=== PATIENT | male | born 1935 | race Caucasian/White ===

== ENCOUNTER 2020-10-03 07:27 | Outpatient (REF) | payer MEDICARE, SELFPAY ==
[2020-10-03 11:31] LABS: Estimated Average Glucose 148 mg/dL; Hemoglobin A1c % 6.8 %
[2020-10-03 11:39] LABS: Alanine Aminotransferase 13 U/L (0-40); Alkaline Phosphatase 54 U/L (39-117); Anion Gap 13 (12-20); Aspartate Amino Transferase 15 U/L (5-37); Bilirubin Total 0.6 mg/dL (0.0-1.0); Blood Urea Nitrogen 15 mg/dL (9-16); Carbon Dioxide 31 mmol/L (22-29); Chloride 101 mmol/L (96-108); Cholesterol 170 mg/dL; Estimated Glomerular Filt Rate > 60; Glucose Fasting 136 mg/dL (60-99); HDL Cholesterol 84 mg/dL; LDL Cholesterol Calculated 75 mg/dl; Potassium 4.5 mmol/L (3.3-5.1); Sodium 140 mmol/L (135-145); Total Protein 6.6 g/dL (6.5-8.0); Triglycerides 59 mg/dL
[2020-10-03 12:07] LABS: Creatinine Urine 110.21 mg/dL; Microalbum/Creatinine Ratio Ur 6.3 ug/mg cr
== END 2020-10-03 07:28 | disposition home or self-care (01) ==
LOC: HO.HMGCLDS 07:27
PROVIDERS: PCP Internal Medicine; Visit Provider Internal Medicine
DX: E11.9 Type 2 diabetes mellitus without complications (principal); C61 Malignant neoplasm of prostate
CPT/HCPCS: 36415; 80053; 80061; 82043; 83036

== ENCOUNTER 2020-12-28 10:17 | Outpatient (REF) | payer MEDICARE, SELFPAY ==
[2020-12-28 11:50] LABS: Estimated Average Glucose 148 mg/dL; Hemoglobin A1c % 6.8 %
[2020-12-28 12:06] LABS: Hematocrit 40.4 % (42-52); Hemoglobin 13.3 g/dl (14.0-18.0); Mean Corpuscular HGB Conc 32.9 g/dl (31.0-36.0); Mean Corpuscular Hemoglobin 29.3 pg (27.0-33.0); Mean Platelet Volume 10.3 fL (9.4-12.4); Platelet Count 243 X10*3/uL (160-400); Red Blood Count 4.54 X10*6/uL (4.60-5.80); Red Cell Distribution Width 13.7 % (11.0-16.0); White Blood Count 5.1 X10*3/uL (4.8-10.8)
[2020-12-28 12:11] LABS: Alanine Aminotransferase 11 U/L (0-40); Albumin Level 4.2 g/dL (3.5-5.0); Alkaline Phosphatase 66 U/L (39-117); Anion Gap 13 (12-20); Aspartate Amino Transferase 17 U/L (5-37); Bilirubin Total 0.6 mg/dL (0.0-1.0); Blood Urea Nitrogen 14 mg/dL (9-16); Calcium 10.2 mg/dL (8.4-10.2); Carbon Dioxide 30 mmol/L (22-29); Chloride 101 mmol/L (96-108); Cholesterol 182 mg/dL; Estimated Glomerular Filt Rate > 60; Glucose Fasting 156 mg/dL (60-99); HDL Cholesterol 87 mg/dL; Iron 90 mcg/dL (45-160); LDL Cholesterol Calculated 82 mg/dl; Percent Iron Saturation 28 % (15-50); Potassium 4.4 mmol/L (3.3-5.1); Sodium 140 mmol/L (135-145); Total Iron Binding Capacity 316 mcg/dL (228-428); Triglycerides 68 mg/dL; Unsaturated Iron Binding 226 ug/dL
[2020-12-28 12:22] LABS: Vitamin D 25-OH Total 55.7 ng/mL (>30)
[2020-12-28 12:43] LABS: Vitamin B12 1960 pg/mL (200-900)
== END 2020-12-28 10:18 | disposition home or self-care (01) ==
LOC: HO.HMGCLDS 10:17
PROVIDERS: PCP Internal Medicine; Visit Provider Internal Medicine
DX: C61 Malignant neoplasm of prostate (principal); E11.9 Type 2 diabetes mellitus without complications
CPT/HCPCS: 36415; 80053; 80061; 82306; 82607; 83036; 83540; 85027

== ENCOUNTER 2021-01-19 12:48 | Emergency (ER) | payer MEDICARE, SELFPAY ==
[2021-01-19 15:08] VITALS: BP 133/58; PULSE 79; RESP 16; TEMP 36.6; O2SAT 98; BMI 20.5
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
[2021-01-19] MEDS: HYDROcodone Bit/Acetam 5/325 TABLET 1 TAB PO (16:59)
[2021-01-19] MEDS: cephALEXin 500 MG CAPSULE PO (16:59)
[2021-01-19 17:33] VITALS: BP 121/62; PULSE 81; RESP 16; TEMP 36.7; O2SAT 98
== END 2021-01-19 17:34 | disposition home or self-care (01) ==
PROVIDERS: Emergency Provider Emergency Medicine; PCP Internal Medicine
DX: T24.212A Burn of second degree of left thigh, initial encounter (principal); T24.211A Burn of second degree of right thigh, initial encounter; T31.0 Burns involving less than 10% of body surface; X12.XXXA Contact with other hot fluids, initial encounter; Y93.9 Activity, unspecified; Y92.9 Unspecified place or not applicable; Y99.9 Unspecified external cause status; E11.9 Type 2 diabetes mellitus without complications
CPT/HCPCS: 16020; 99283

== ENCOUNTER 2021-01-30 07:57 | Outpatient (RCR) | payer MEDICARE, SELFPAY | END 2021-03-02 12:31 | disposition home or self-care (01) | LOC: HO.WCC 07:57 | PROVIDERS: PCP Internal Medicine; Visit Provider Physician Assistant | DX: T24.212D Burn of second degree of left thigh, subsequent encounter (principal); T24.211D Burn of second degree of right thigh, subsequent encounter; T21.25XD Burn of second degree of buttock, subsequent encounter; E11.65 Type 2 diabetes mellitus with hyperglycemia; R21 Rash and other nonspecific skin eruption; T31.0 Burns involving less than 10% of body surface; Z79.84 Long term (current) use of oral hypoglycemic drugs; Z85.46 Personal history of malignant neoplasm of prostate | CPT/HCPCS: 99212; 99213; 99214 ==

== ENCOUNTER 2021-07-02 08:37 | Outpatient (REF) | payer MEDICARE, SELFPAY ==
[2021-07-02 11:34] LABS: Estimated Average Glucose 143 mg/dL; Hemoglobin A1c % 6.6 %
[2021-07-02 11:51] LABS: Alanine Aminotransferase 12 U/L (0-40); Albumin Level 4.1 g/dL (3.5-5.0); Alkaline Phosphatase 58 U/L (39-117); Anion Gap 11 (12-20); Aspartate Amino Transferase 15 U/L (5-37); Bilirubin Total 0.5 mg/dL (0.0-1.0); Blood Urea Nitrogen 12 mg/dL (9-16); Calcium 9.8 mg/dL (8.4-10.2); Carbon Dioxide 31 mmol/L (22-29); Chloride 101 mmol/L (96-108); Estimated Glomerular Filt Rate > 60; Glucose Fasting 147 mg/dL (60-99); Potassium 4.1 mmol/L (3.3-5.1); Sodium 139 mmol/L (135-145); Total Protein 6.7 g/dL (6.5-8.0)
== END 2021-07-02 08:38 | disposition home or self-care (01) ==
LOC: HO.HMGCLDS 08:37
PROVIDERS: PCP Internal Medicine; Visit Provider Internal Medicine
DX: E11.9 Type 2 diabetes mellitus without complications (principal); C61 Malignant neoplasm of prostate
CPT/HCPCS: 36415; 80053; 83036

== ENCOUNTER 2022-01-04 08:22 | Outpatient (REF) | payer MEDICARE, SELFPAY ==
[2022-01-04 12:05] LABS: Hematocrit 37.2 % (42.0-52.0); Hemoglobin 12.1 g/dl (14.0-18.0); Mean Corpuscular HGB Conc 32.5 g/dl (31.0-36.0); Mean Corpuscular Hemoglobin 29.4 pg (27.0-33.0); Mean Corpuscular Volume 90.3 fL (80.0-98.0); Mean Platelet Volume 10.1 fL (9.4-12.4); Platelet Count 249 X10*3/uL (160-400); Red Blood Count 4.12 X10*6/uL (4.60-5.80); Red Cell Distribution Width 13.7 % (11.0-16.0)
[2022-01-04 12:44] LABS: Alanine Aminotransferase 12 U/L (0-40); Alkaline Phosphatase 65 U/L (39-117); Anion Gap 12 (12-20); Aspartate Amino Transferase 14 U/L (5-37); Bilirubin Total 0.3 mg/dL (0.0-1.0); Blood Urea Nitrogen 13 mg/dL (9-16); Calcium 9.1 mg/dL (8.4-10.2); Carbon Dioxide 29 mmol/L (22-29); Chloride 101 mmol/L (96-108); Estimated Glomerular Filt Rate > 60; Glucose Fasting 145 mg/dL (60-99); Potassium 4.3 mmol/L (3.3-5.1); Sodium 138 mmol/L (135-145); Total Protein 6.6 g/dL (6.5-8.0)
[2022-01-04 12:52] LABS: Estimated Average Glucose 148 mg/dL; Hemoglobin A1c % 6.8 %
[2022-01-04 12:57] LABS: Creatinine Urine 61.41 mg/dL; Microalbum/Creatinine Ratio Ur 30.9 ug/mg cr
== END 2022-01-04 08:23 | disposition home or self-care (01) ==
LOC: HO.HMGCLDS 08:22
PROVIDERS: PCP Internal Medicine; Visit Provider Internal Medicine
DX: E11.9 Type 2 diabetes mellitus without complications (principal)
CPT/HCPCS: 36415; 80053; 82043; 83036; 85027

== ENCOUNTER 2022-07-03 08:04 | Outpatient (REF) | payer MEDICARE, SELFPAY ==
[2022-07-03 11:11] LABS: MANUAL DIFF FLAG NO
[2022-07-03 11:30] LABS: Basophils Percent Auto 0.6 % (0-2); Eosinophils Absolute Auto 0.4 X10*3/uL (0.0-0.4); Eosinophils Percent Auto 7.3 % (0-4); Hematocrit 37.1 % (42.0-52.0); Hemoglobin 12.2 g/dl (14.0-18.0); Imm Gran Abs Auto 0.01 X10*3/uL (0.00-0.03); Imm Gran Pct Auto 0.2 % (0.0-0.4); Lymphocytes Percent Auto 19.2 % (20-40); Mean Corpuscular HGB Conc 32.9 g/dl (31.0-36.0); Mean Corpuscular Hemoglobin 28.6 pg (27.0-33.0); Mean Corpuscular Volume 86.9 fL (80.0-98.0); Monocytes Absolute Auto 0.8 X10*3/uL (0.1-1.2); Monocytes Percent Auto 16.5 % (2-11); Neutrophils Absolute Auto 2.8 x10*3/uL (2.0-8.3); Neutrophils Percent Auto 56.2 % (45-73); Platelet Count 281 X10*3/uL (160-400); Red Blood Count 4.27 X10*6/uL (4.60-5.80); Red Cell Distribution Width 14.2 % (11.0-16.0)
[2022-07-03 11:35] LABS: Estimated Average Glucose 148 mg/dL; Hemoglobin A1c % 6.8 %
[2022-07-03 11:42] LABS: Alanine Aminotransferase 8 U/L (0-40); Alkaline Phosphatase 69 U/L (39-117); Anion Gap 15 (12-20); Aspartate Amino Transferase 13 U/L (5-37); Bilirubin Total 0.4 mg/dL (0.0-1.0); Blood Urea Nitrogen 14 mg/dL (9-16); Calcium 9.4 mg/dL (8.4-10.2); Carbon Dioxide 26 mmol/L (22-29); Chloride 97 mmol/L (96-108); Estimated Glomerular Filt Rate > 60; Glucose Fasting 142 mg/dL (60-99); Potassium 4.4 mmol/L (3.3-5.1); Sodium 134 mmol/L (135-145); Total Protein 6.7 g/dL (6.5-8.0)
[2022-07-03 12:21] LABS: Folate 10.4 ng/mL (> or = 4.0); Vitamin B12 < 148 pg/mL (200-900)
== END 2022-07-03 08:05 | disposition home or self-care (01) ==
LOC: HO.HMGCLDS 08:04
PROVIDERS: PCP Internal Medicine; Visit Provider Internal Medicine
DX: Z00.00 Encounter for general adult medical examination without abnormal findings (principal); C61 Malignant neoplasm of prostate; E11.9 Type 2 diabetes mellitus without complications
CPT/HCPCS: 36415; 80053; 82607; 82746; 83036; 85025

== ENCOUNTER 2023-01-02 08:34 | Outpatient (REF) | payer MEDICARE, SELFPAY ==
[2023-01-02 11:10] LABS: MANUAL DIFF FLAG NO
[2023-01-02 11:25] LABS: Basophils Percent Auto 0.5 % (0-2); Eosinophils Absolute Auto 0.3 X10*3/uL (0.0-0.4); Eosinophils Percent Auto 4.3 % (0-4); Hematocrit 37.8 % (42.0-52.0); Hemoglobin 12.5 g/dl (14.0-18.0); Imm Gran Abs Auto 0.03 X10*3/uL (0.00-0.03); Imm Gran Pct Auto 0.5 % (0.0-0.4); Lymphocytes Absolute Auto 1.3 X10*3/uL (1.2-4.9); Lymphocytes Percent Auto 21.4 % (20-40); Mean Corpuscular HGB Conc 33.1 g/dl (31.0-36.0); Mean Corpuscular Hemoglobin 29.6 pg (27.0-33.0); Mean Corpuscular Volume 89.6 fL (80.0-98.0); Mean Platelet Volume 10.2 fL (9.4-12.4); Monocytes Absolute Auto 0.8 X10*3/uL (0.1-1.2); Neutrophils Absolute Auto 3.8 x10*3/uL (2.0-8.3); Neutrophils Percent Auto 61.3 % (45-73); Platelet Count 240 X10*3/uL (160-400); Red Blood Count 4.22 X10*6/uL (4.60-5.80); Red Cell Distribution Width 14.6 % (11.0-16.0); White Blood Count 6.3 X10*3/uL (4.8-10.8)
== END 2023-01-02 08:35 | disposition home or self-care (01) ==
LOC: HO.HMGCLDS 08:34
PROVIDERS: PCP Internal Medicine; Visit Provider Internal Medicine
DX: C61 Malignant neoplasm of prostate (principal); E11.9 Type 2 diabetes mellitus without complications; J31.0 Chronic rhinitis
CPT/HCPCS: 36415; 80053; 83036; 84443; 85025

== ENCOUNTER 2023-01-06 08:53 | Outpatient (REF) | payer MEDICARE, SELFPAY | END 2023-01-06 08:54 | disposition home or self-care (01) | LOC: HO.HMGCLDS 08:53 | PROVIDERS: PCP Internal Medicine; Visit Provider Internal Medicine | DX: E55.9 Vitamin D deficiency, unspecified (principal); E53.8 Deficiency of other specified B group vitamins | CPT/HCPCS: 36415; 82306; 82607; 82746 ==

== ENCOUNTER 2023-01-15 08:57 | Outpatient (AMB) | payer MEDICARE, SELFPAY ==
[2023-01-15 08:58] VITALS: BP 132/68; PULSE 50; TEMP 36.5; O2SAT 100
--- NOTE | 2023-01-15 08:58 | AM.OFFWIN_ITS ---
Intake Vital Signs 01/15/23 08:58 Height 5 ft 8 in BP 132/68 Blood Pressure Location Rt brachial Position Sitting Pulse 50 Pulse Source Pulse Oximeter Temp 97.7 F Temp Source Oral Pulse Oximetry (%) 100 Oxygen Delivery Method Room Air Intake Visit Reasons: EP, Left thumb laceration (lobby) Intake Note: pt cut his left thumb on his saw yesterday afternoon and pt say it is still bleeding Patient Tobacco Use Status: Never used Tobacco Allergies No Known Allergies [No Known Allergies*] Allergy (Verified 01/15/23 09:25) HPI HPI Comments History of Present Illness Details Here today with reports of a laceration to left thumb that occurred yesterday afternoon. Reports working with his saw and injuring the top of his left thumb which resulted in immediate loss of flesh & bleeding. Him and his rinsed the area and applied a pressure dressing. He comes in today for further evaluation. He does not think he is up-to-date on his tetanus shot. He is not having much pain. He has good sensation in the thumb. He is not on any blood thinners. He can come in any sooner is again think there is any skin left suture. He denies fever chills. [facility] Medical History Annual physical exam DM type 2 (diabetes mellitus, type 2) Paget's disease Prostate CA Family History Father No problems noted. Mother No problems noted. Social History Housing: House Alcohol intake: current Alcohol intake frequency: holidays/special occasions only Patient Tobacco Use Status: Never used Tobacco e-Cigarette/Vaping Use: Never Used Second Hand Smoke Exposure: No service: Yes Current occupational status: retired Current occupational exposures/hazards: No Cognitive needs: No Hearing needs: No Vision needs: Yes Review of Systems Const All systems reviewed & are unremarkable except as noted in HPI and below Physical Exam Vital Signs: Last Vital Signs Temp 97.7 F 01/15/23 08:58 Pulse 50 01/15/23 08:58 BP 132/68 01/15/23 08:58 Pulse Ox 100 01/15/23 08:58 Oxygen Delivery Method Room Air 01/15/23 08:58 Const Other: Awake alert oriented in no acute distress Speaking in full sentences Avulsion to pad of left thumb, no bone visible or palpable appears to be limited to the tissue. The area was rinsed thoroughly with sterile saline. Xeroform gauze and dry clean dressing applied. Patient tolerated well. Positive [facility] Assessment & Plan Assessment & Plan (1) Avulsion of skin of thumb: Code(s): S61.009A - Unspecified open wound of unspecified thumb without damage to nail, i nitial encounter Orders: Orders TDaP Immunization Today S61.009A - Unspecified open wound of unspecified thumb without damage to nail, initial encounter Referrals Hand Surgery Referral S61.009A - Unspecified open wound of unspecified thumb without damage to nail, initial encounter Medications: New cephalexin 500 mg PO TID 7 days 21 caps 0RF Patient Instructions: Tdap today. Take antibiotics as prescribed. Follow-up with Hand surgery for further recommendations. Sent home with additional dressing supplies to change daily. Patient should monitor for signs of infection that would include fever chills drainage or redness to the area. Keep the dressing dry and clean. Coding Level of Care Code Est Pt Level 4 (18608) Diagnoses Avulsion of skin of thumb S61.009A
== END 2023-01-15 10:09 | disposition home or self-care (01) ==
PROVIDERS: PCP Internal Medicine; Visit Provider Nurse Practitioner Family
DX: S61.009A Unspecified open wound of unspecified thumb without damage to nail, initial encounter (principal); Z23 Encounter for immunization
CPT/HCPCS: 90471; 90715; 99214

== ENCOUNTER 2023-01-21 08:31 | Outpatient (AMB) | payer MEDICARE, SELFPAY ==
[2023-01-21 08:36] VITALS: BMI 19.5
--- NOTE | 2023-01-21 08:36 | A.OFFVIS_ITS ---
Intake Vital Signs 01/21/23 08:36 Height 5 ft 8 in Weight 128 lb BMI 19.5 Intake Visit Reasons: open wound of left thumb without damage to nail Intake Note: Raymundo is a 87 year old left hand dominant male who presents today as a new patient for a evaluation for his laceration of his left thumb, DOI 01/14/23. He states he cut his finger with a table saw. Patient reports some discomfort and no numbness and tingling. Allergies No Known Allergies [No Known Allergies*] Allergy (Verified 01/21/23 08:37) HPI open wound of left thumb without damage to nail HPI Details 87-year-old left hand dominant male who presents in the office today, as a new patient, for an evaluation of left thumb pain. The patient [facility]2023 status post cutting his thumb with a saw on 01/14/2023. He was prescribed cephalexin 500 mg PO TID. He reports some discomfort. He denies numbness or tingling. [facility] Medical History Annual physical exam DM type 2 (diabetes mellitus, type 2) Paget's disease Prostate CA Family History Father No problems noted. Mother No problems noted. Social History Housing: House Alcohol intake: current Alcohol intake frequency: holidays/special occasions only Patient Tobacco Use Status: Never used Tobacco e-Cigarette/Vaping Use: Never Used Second Hand Smoke Exposure: No service: Yes Current occupational status: retired Current occupational exposures/hazards: No Cognitive needs: No Hearing needs: No Vision needs: Yes Review of Systems Const All systems reviewed & are unremarkable except as noted in HPI and below Physical Exam Vital Signs: BMI result Body Mass Index 19.5 Const General: cooperative, healthy appearing, comfortable, no acute distress, well developed and alert Orientation/consciousness: patient oriented x3 HEENT Head: Yes normal to inspection, Yes normocephalic and Yes atraumatic Eyes General: appearance normal, both eyes and all related structures Resp Effort & Inspection: normal respiratory effort and able to speak in complete sentences Cardio Rate: regular rate Peripheral pulses: Peripheral pulses 2+ throughout GI Palpation (GI): Soft to palpation Skin Lesions: no lesions Rashes: no rashes Neuro General: patient oriented x3 Extrem Other: Left thumb: Avulsion of skin at the distal aspect of the finger pad of the thumb. Reports sensation along the ulnar and radial digital nerve. Able to flex and extend at the IP joint and CMC. No signs of infection. Granulation tissue is beginning to fill in the avulsed area. Able to perform full finger flexion, extension, abduction, adduction, finger cross, okay sign, and thumbs up without deficit. Able to make a closed fist. Assessment & Plan Assessment & Plan (1) Laceration of left thumb: Code(s): S61.012A - Laceration without foreign body of left thumb without damage to nail, initial encounter Plan Mr. Ferreira is an 87-year-old left hand dominant male who presents in the office today, as a new patient, for an evaluation of left thumb pain. The patient [facility] 01[facility]2023 status post cutting his thumb with a saw on 01/14/2023. He was prescribed cephalexin 500 mg PO TID. He reports some discomfort. He denies numbness or tingling. The patient will continue to take the antibiotic until completed. He was educated on signs of infection, which are as follows but not limited to erythema, edema, drainage, or warmth. If he is to experience any of these symptoms he is to contact the office immediately or present to the ED. His finger was redressed with xeroform and tape. He was given supplies for daily dressing changes. Follow up will be in 1 week for a wound check, or sooner if needed. X-rays of the left hand which were obtained while in the office today and were reviewed by me, Alyssa Yeung PA-C, revealed no evidence of acute fracture or dislocation. Orders: Orders XR hand LT min 3V Today M79.643 - Pain in unspecified hand Patient Instructions: Scribed for Alyssa Yeung PA-C by Latonia Santiago medical dosimetrist, on 01/21/2023 at 8:42 am, EST. Your attestation Coding Level of Care Code New Pt Level 4 (98761) Diagnoses Laceration of left thumb S61.012A
== END 2023-01-21 09:29 | disposition home or self-care (01) ==
PROVIDERS: PCP Internal Medicine; Visit Provider Physician Assistant
DX: S61.012A Laceration without foreign body of left thumb without damage to nail, initial encounter (principal)
CPT/HCPCS: 99203

== ENCOUNTER 2023-01-21 10:49 | Outpatient (REF) | payer MEDICARE, SELFPAY ==
--- NOTE | ~2023-01-21 | XR_ITS ---
EXAMINATION: XR HAND, LEFT CLINICAL INFORMATION: Left hand pain. COMPARISON: None available. TECHNIQUE: PA, lateral, and oblique views of the left hand. FINDINGS: There is loss of PIP, DIP and MCP joint spaces with no periarticular spurring seen. Mild loss of 1st carpometacarpal joint space is seen as well. No acute fracture, dislocation. No juxta-articular osteoporosis seen. The soft tissues are normal. XR/XR hand LT min 3V IMPRESSION: 1. Mild degenerative osteoarthritic changes left hand. No visible acute fracture or dislocation seen. 2. There is no juxta-articular osteoporosis.
== END 2023-01-21 10:50 | disposition home or self-care (01) ==
LOC: HO.HOSX 10:49
PROVIDERS: Visit Provider Physician Assistant
DX: S61.012A Laceration without foreign body of left thumb without damage to nail, initial encounter (principal)
CPT/HCPCS: 73130

== ENCOUNTER → 2023-01-28 12:35 | Outpatient (BNVA) | payer MEDICARE, SELFPAY | PROVIDERS: PCP Internal Medicine; Visit Provider Physician Assistant ==

== ENCOUNTER 2023-02-11 14:47 | Outpatient (AMB) | payer MEDICARE, SELFPAY ==
--- NOTE | 2023-02-11 14:50 | MHC.OFFVIS ---
Intake Vital Signs 02/11/23 14:54 Height 5 ft 8 in Weight 128 lb BMI 19.5 Intake Visit Reasons: OV-LT thumb wound without damage to nail Intake Note: Raymundo an 87 year old left hand dominant male who presents today for a wound check of his laceration to his left thumb, DOI 01/14/23. Patient reports no pain or discomfort but having numbness on the tip of the thumb. Allergies No Known Allergies [No Known Allergies*] Allergy (Verified 02/11/23 14:53) HPI OV-LT thumb wound without damage to nail HPI Details 87-year-old left hand dominant male who presents in the office today for a follow up of left thumb laceration without damage to the nail, which occurred on 01/14/2023 status post cutting his thumb with a saw. He has no pain or discomfort while in the office today. He confirms numbness on the tip of the thumb. [facility] Medical History Annual physical exam DM type 2 (diabetes mellitus, type 2) Paget's disease Prostate CA Family History Father No problems noted. Mother No problems noted. Social History Housing: House Alcohol intake: current Alcohol intake frequency: holidays/special occasions only Patient Tobacco Use Status: Never used Tobacco e-Cigarette/Vaping Use: Never Used Second Hand Smoke Exposure: No service: Yes Current occupational status: retired Current occupational exposures/hazards: No Cognitive needs: No Hearing needs: No Vision needs: Yes Review of Systems Const All systems reviewed & are unremarkable except as noted in HPI and below Physical Exam Vital Signs: BMI result Body Mass Index 19.5 Const General: cooperative, healthy appearing and no acute distress Resp Effort & Inspection: normal respiratory effort and able to speak in complete sentences Cardio Rate: regular rate Peripheral pulses: Peripheral pulses 2+ throughout GI Palpation (GI): Soft to palpation Skin Lesions: no lesions Rashes: no rashes Extrem Other: Left thumb: Avulsion of skin at the distal aspect of the finger pad of the thumb has filled in nicely with healthy pink tissue. Reports sensation along the ulnar and radial digital nerve. Able to flex and extend at the IP joint and CMC. No signs of infection. Able to perform full finger flexion, extension, abduction, adduction, finger cross, okay sign, and thumbs up without deficit. Able to make a closed fist. Assessment & Plan Assessment & Plan (1) Laceration of left thumb: Code(s): S61.012A - Laceration without foreign body of left thumb without damage to nail, initial encounter Plan Mr. Ferreira is a 87-year-old left hand dominant male who presents in the office today for a follow up of left thumb laceration without damage to the nail, which occurred on 01/14/2023 status post cutting his thumb with a saw. He has no pain or discomfort while in the office today. He confirms numbness on the tip of the thumb. Avulsed area of skin has filled in nicely with healthy tissue. No signs of infection. He was educated on signs of infection, which are as follows but not limited to erythema, edema, drainage, or warmth. If he is to experience any of these symptoms he is to contact the office immediately or present to the ED. He may resume normal activities as tolerated. Follow up will be PRN, or sooner if needed. Patient Instructions: Scribed for Alyssa Yeung PA-C by Latonia Santiago medical instrument technician, on 02/11/2023 at 2:49 pm, EST. Coding Level of Care Code Est Pt Level 3 (55440) Diagnoses Laceration of left thumb S61.012A
[2023-02-11 14:54] VITALS: BMI 19.5
== END 2023-02-11 14:58 | disposition home or self-care (01) ==
PROVIDERS: PCP Internal Medicine; Visit Provider Physician Assistant
DX: S61.012D Laceration without foreign body of left thumb without damage to nail, subsequent encounter (principal)
CPT/HCPCS: 99213

== ENCOUNTER → 2023-02-11 14:47 | Outpatient (BNVA) | payer MEDICARE, SELFPAY | PROVIDERS: PCP Internal Medicine; Visit Provider Physician Assistant | DX: S61.012D Laceration without foreign body of left thumb without damage to nail, subsequent encounter (principal) | CPT/HCPCS: 99212 ==

== ENCOUNTER 2023-02-26 11:26 | Emergency (ER) | payer MEDICARE, SELFPAY ==
--- NOTE | ~2023-02-26 | US_ITS ---
EXAMINATION: US VENOUS ULTRASOUND WITH DOPPLER LOWER EXTREMITY, RIGHT CLINICAL INFORMATION: Right calf pain. COMPARISON: None available. TECHNIQUE: Ultrasound of the deep veins is performed from the hip to the calf with compression sonography and color and pulse Doppler assessment. Spectral analysis with color-flow imaging is performed. FINDINGS: There is normal venous compression and respiratory variation and augmented flow. The visualized common femoral vein, superficial femoral vein, profunda femoral vein, popliteal vein, and the trifurcation region shows no evidence of deep venous thrombosis. No right popliteal cyst. The subcutaneous soft tissues are unremarkable. US/US venous duplex LE RT IMPRESSION: No evidence for deep venous thrombosis in the visualized veins of the right lower extremity.
--- NOTE | ~2023-02-26 | CT_ITS ---
EXAMINATION: CT PELVIS WITHOUT CONTRAST CLINICAL INFORMATION: Prostate cancer, pain. Rule out mass. COMPARISON: CT scan of the abdomen and pelvis dated 06/02/2018. TECHNIQUE: Helical scanning was performed with submillimeter collimation through the pelvis. Sagittal and coronal multiplanar 2-D reconstructions were obtained. Lack of intravenous and oral contrast limits visceral evaluation. This CT examination was performed using dose optimization techniques as appropriate, variously including the following: *Automated exposure control *Adjustment of mA and/or kV according to patient size (this includes techniques or standardized protocols for targeted exams where dose is matched to indication/reason for exam; i.e. extremities or head) *Use of iterative reconstruction technique DLP: 249 mGy-cm FINDINGS: PELVIS: The visualized small bowel is unremarkable. No evidence for acute appendicitis. Mild diverticulosis in the sigmoid colon without surrounding abnormality. The rectum is unremarkable. Brachytherapy seeds in the prostate gland without surrounding abnormality. Urinary bladder small diverticuli posterolateral, right without associated abnormality. No lymphadenopathy. OSSEOUS STRUCTURES: L4-L5 moderate L5-S1 severe degenerative disc disease. Mild bilateral sacroiliac and hip degenerative joint changes. No acute/suspicious abnormality. SOFT TISSUES: Unremarkable. CT/CT pelvis wo IV con IMPRESSION: 1. No acute/suspicious abnormality to explain the patient's symptoms. 2. Several incidental findings detailed above similar to the previous study.
[2023-02-26 11:30] VITALS: BP 169/50; PULSE 64; RESP 19; TEMP 36.6; O2SAT 98; BMI 20.1
--- NOTE | 2023-02-26 11:31 | ED.GENADULT ---
HPI - General Adult General Chief complaint: Extremity Injury, Lower Stated complaint: R leg pain Time Seen by Provider: 02/26/23 13:27 Source: patient Mode of arrival: wheelchair Limitations: no limitations History of Present Illness HPI narrative: 87 yo male with history of prostate cancer on oral chemo, DM here with complaints of shooting right leg pain only when he walks since last evening. Patient reports d/t pain he is unable to walk. His baseline is walking independently. Pain is described as shooting pain. NO associated weakness, numbness, tingling, fevers, chills, bowel or bladder incontinence, numbness in the groin. No falls or injuries. Does have intermittent back pain but unsure if this is associated with his pain today Related Data Home Medications Medication Instructions Recorded Confirmed flu vacc 2020-(65yr ml IM 07/10/20 01/06/23 up)-MF59C(PF) 60 mcg(15 mcgx4)/0.5 mL IM syringe tamsulosin 0.4 mg capsule 0.4 mg PO DAILY 07/10/20 01/06/23 ascorbate calcium (vitamin C) 500 500 mg PO DAILY 09/28/20 01/06/23 mg tablet aspirin 81 mg tablet,delayed 81 mg PO DAILY 09/28/20 01/06/23 release cholecalciferol (vitamin D3) 50 50 mcg PO DAILY 09/28/20 01/06/23 mcg (2,000 unit) capsule cyanocobalamin (vitamin B-12) 5,000 mcg PO DAILY 09/28/20 01/06/23 5,000 mcg capsule ferrous sulfate 325 mg (65 mg 325 mg PO DAILY 09/28/20 01/06/23 iron) tablet (Feosol) goserelin 3.6 mg subcutaneous 3.6 mg subcut Q28D 09/28/20 01/06/23 implant (Zoladex) oxybutynin chloride 5 mg 5 mg PO DAILY 07/05/21 01/06/23 tablet,extended release 24 hr darolutamide 300 mg tablet (Nubeqa) 600 mg PO BID 03/29/22 01/06/23 loratadine 10 mg tablet 10 mg PO DAILY 01/06/23 01/06/23 Previous Rx's Medication Instructions Recorded blood sugar diagnostic (FreeStyle #100 ea 03/13/22 Lite Strips) sitagliptin phosphate 50 mg tablet 50 mg PO DAILY #90 tabs 08/12/22 metformin 500 mg tablet 1,000 mg PO BID #360 tabs 08/27/22 cephalexin 500 mg capsule 500 mg PO TID 7 days #21 caps 01/15/23 cyclobenzaprine 10 mg tablet 10 mg PO TID PRN muscle spasm #10 02/26/23 tabs naproxen 500 mg tablet 500 mg PO BID PRN pain #20 tabs 02/26/23 walker #1 ea 02/26/23 Allergies Allergy/AdvReac Type Severity Reaction Status Date / Time No Known Allergies Allergy Verified 02/26/23 11:30 [No Known Allergies*] Review of Systems Review of Systems: Yes all other systems are reviewed and are negative Constitutional: Constitutional: Reports no additional constitutional complaints, Denies body ache(s), Denies chills, Denies fever(s), Denies headache(s) and Denies weakness Eyes: Eyes: Reports no additional eye complaints and Denies change in vision ENT: Reports system reviewed and no additional complaints, except as documented, Denies dizziness, Denies headache(s), Denies nasal congestion, Denies nasal discharge and Denies neck pain Cardiovascular: Cardiovascular: Reports no additional cardiovascular complaints, Denies chest pain, Denies leg edema and Denies dyspnea Respiratory: Respiratory: Reports no additional respiratory complaints, Denies cough and Denies dyspnea Gastrointestinal: Gastrointestinal: Reports no additional gastrointestinal complaints, Denies abdominal pain, Denies diarrhea, Denies nausea and Denies vomiting Genitourinary: Genitourinary: Denies urinary incontinence Musculoskeletal: Musculoskeletal: Reports no additional musculoskeletal complaints, Denies back pain, Denies arthralgias, Denies joint swelling, Denies neck pain, Denies numbness, Reports radiating pain into limb and Denies tingling Integumentary/Breasts: Skin/Breast: Reports system reviewed and no additional complaints, except as docu and Denies rash Neurologic: Reports system reviewed and no additional complaints, except as documented, Denies dizziness, Denies headache(s), Denies numbness, Denies tingling and Denies weakness PMFSH Past Medical History Source: old records reviewed and nursing notes reviewed Medical History Annual physical exam DM type 2 (diabetes mellitus, type 2) Paget's disease Prostate CA Family History Family History Father No problems noted. Mother No problems noted. Social History Social History Housing: House Alcohol intake: current Alcohol intake frequency: holidays/special occasions only Patient Tobacco Use Status: Never used Tobacco e-Cigarette/Vaping Use: Never Used Second Hand Smoke Exposure: No Advance Directives: No Advance Directives Information Provided: No service: Yes Current occupational status: retired Current occupational exposures/hazards: No Cognitive needs: No Hearing needs: No Vision needs: Yes Physical Exam ED Vital Signs: Vital Signs - 24 hr 02/26/23 11:30 02/26/23 13:30 Temperature 98 F Pulse Rate 64 50 Respiratory Rate 19 16 Blood Pressure 169/50 H 159/53 H Pulse Oximetry 98 Oxygen Delivery Method Room Air BMI result Body Mass Index 20.1 Const General: cooperative, healthy appearing, comfortable and no acute distress Orientation/consciousness: patient oriented x3 Limitations: wheelchair HENMT Head: Yes normal to inspection Ears: hearing grossly normal bilaterally Eyes General: appearance normal, both eyes and all related structures Pupils: Equal, round and reactive pupils present Neck Neck: Yes normal visual inspection Chest Chest palpation & inspection: normal inspection of the chest Resp Effort & Inspection: normal respiratory effort Auscultation: clear to auscultation bilaterally Cardio Rate: regular rate Rhythm: regular rhythm Peripheral pulses: Peripheral pulses 2+ throughout GI Inspection: Yes normal to inspection Palpation (GI): Soft to palpation and nontender Back/Spine/Pelvis Other: No palpable bony tenderness over lumbar spine or right hip Thoracic/Lumbar Spine: thoracic and lumbar spine normal to inspection and straight leg raise negative bilaterally Skin General skin exam: no rashes or lesions noted Neuro General: patient oriented x3 and moves all extremities Cranial nerves: Yes CN's II-XII intact bilaterally, Yes Equal, round and reactive pupils present, Yes Bilaterally intact EOM present, Yes Nystagmus not present, Yes Normal facial strength present and Yes Midline tongue present Cognition (Neuro): normal cognition Motor exam (neuro): 5/5 motor strength present throughout Sensory Exam: Normal double simultaneous stimulation for sensation Extrem Other: Normal DP/PT pulses LE bilaterally General: Yes normal to inspection, Yes no pedal edema and Yes no calf tenderness Course Course Course Narrative: This is an RME: Additional HPI, ROS, PE not included below will be deferred to primary provider. This is a 81-pch[age]dr[age]-male, with a hx of diabetes, paget's disease, prostate cancer, presenting to the emergency department with a complaint of right calf and posterior leg pain since yesterday. He states that he was working out in his garden yesterday and gradually noticed while he was watching television he felt increasing pain. Pain worsens with weight bearing. Vital signs stable. Obvious swelling or palpable cords notice lower extremity. No recent travel, hospitalizations, surgeries, smoking history or blood clot history. He is not on anticoagulants. Labs, ultrasound Reevaluation(s) Reevaluation #1: Ct shows IMPRESSION:? 1. No acute/suspicious abnormality to explain the patient's symptoms. 2. Several incidental findings detailed above similar to the previous study. Patient able to walk with walker with steady gait. Reviewed findings with patient. This may be lumbar radiculopathy, sciatica.He may need outpatient MRI. No need for emergent MRI. Will initiate NSAID, muscle relaxant with recommendation to f.u with his PCP outpatient. Reviewed worrisome signs.symptoms with patient and when to seek additional care. Comfortable with discharge home ? Medical Decision Making Medical Decision Making [facility] Narrative: 87 yo male with history of prostate cancer here with complaints of acute onset of radiating pain down the right leg worsened with walking and difficulty with ambulating d/t pain. Normal neuro exam, no focal deficits. Had labs, venous US D/t history of prostate cancer will obtain CT Pelvis to eval for compressive mass, bony lesion or metastatic disease Differential Diagnosis Differential Diagnoses: The differential diagnosis associated with the presentation includes malignancy low concern for cord compression/caude equina, epidural abscess Admission/Observation Consideration of admission/observation: Escalation of care including admission/observation considered patient able to ambulate with walker, no difficulty with ambulating/neurological deficits to suggest cord compression/caude equina/epidural abscess to suggest need for MRI, NSY eval and or admission. Lab Data [facility] Lab Attestation statement: I reviewed the patient's lab results. unremarkable 02/26/23 12:16 02/26/23 12:16 Labs: Lab Results 02/26/23 02/26/23 02/26/23 Range/Units 12:16 12:16 12:16 WBC 5.1 (4.8-10.8) X10*3/uL RBC 4.04 L (4.60-5.80) X10*6/uL Hgb 12.5 L (14.0-18.0) g/dl Hct 35.9 L (42.0-52.0) % MCV 88.9 (80.0-98.0) fL MCH 30.9 (27.0-33.0) pg MCHC 34.8 (31.0-36.0) g/dl RDW 14.2 (11.0-16.0) % Plt Count 242 (160-400) X10*3/uL MPV 9.4 (9.4-12.4) fL Immature Gran % (Auto) 0.4 (0.0-0.4) % Neut % (Auto) 73.1 H (45-73) % Lymph % (Auto) 13.9 L (20-40) % Yancey % (Auto) 10.2 (2-11) % Eos % (Auto) 1.8 (0-4) % Baso % (Auto) 0.6 (0-2) % Lymph # (Auto) 0.7 L (1.2-4.9) X10*3/uL Yancey # (Auto) 0.5 (0.1-1.2) X10*3/uL Eos # (Auto) 0.1 (0.0-0.4) X10*3/uL Baso # (Auto) 0.0 (0.0-0.2) X10*3/uL Abs Immat Gran (auto) 0.02 (0.00-0.03) X10*3/uL Absolute Neuts (auto) 3.7 (2.0-8.3) x10*3/uL Absolute Nucleated RBC 0.000 (0.0-0.012) X10*3/uL Nucleated RBC % (auto) 0.0 (0.0-0.2) /100WBC PT 11.1 (11.1-13.3) SEC INR 0.9 (0.9-1.1) APTT 26.9 (26.0-36.4) SEC Sodium 133 L (135-145) mmol/L Potassium 4.5 (3.3-5.1) mmol/L Chloride 97 (96-108) mmol/L Carbon Dioxide 28 (22-29) mmol/L Anion Gap 13 (12-20) BUN 15 (9-16) mg/dL Creatinine 0.75 (0.5-1.4) mg/dL Estim Creat Clear Calc 58.7 Estimated GFR > 60 Random Glucose 151 H (60-115) mg/dL Calcium 9.9 (8.4-10.2) mg/dL Magnesium 1.8 (1.6-2.6) mg/dL Total Bilirubin 0.5 (0.0-1.0) mg/dL Direct Bilirubin 0.2 (0.0-0.5) mg/dL AST 17 (5-37) U/L ALT 12 (0-40) U/L Alkaline Phosphatase 54 (39-117) U/L Total Protein 7.0 (6.5-8.0) g/dL Albumin 4.1 (3.5-5.0) g/dL Independent Interpretation I performed an independent interpretation of an: Ultrasound and CT Scan Interpretation: I independently reviewed the US, CT pelvis and agree with rad report Radiology Impression Discussion of test interpretation with radiology: I have reviewed the radiologist's reading. Radiologist Impression: Launch?Image [place] [id number] Ultrasound Report Signed Patient: Raymundo Ferreira MR#: [id number] : 1935 Acct:[id number] Age/Sex: 87 / M ADM Date: 02/26/23 Loc: .ED Attending Dr: Ordering Physician: Emerita Lopes Date of Service: 02/26/23 Procedure(s): US venous duplex LE RT Accession Number(s): [id number] cc: Emerita Lopes~ EXAMINATION:? US VENOUS ULTRASOUND WITH DOPPLER LOWER EXTREMITY, RIGHT CLINICAL INFORMATION:? Right calf pain. COMPARISON:? None available. TECHNIQUE: Ultrasound of the deep veins is performed from the hip to the calf with compression sonography and color and pulse Doppler assessment. Spectral analysis with color-flow imaging is performed. FINDINGS: There is normal venous compression and respiratory variation and augmented flow. The visualized common femoral vein, superficial femoral vein, profunda femoral vein, popliteal vein, and the trifurcation region shows no evidence of deep venous thrombosis. No right popliteal cyst. The subcutaneous soft tissues are unremarkable. US/US venous duplex LE RT IMPRESSION: No evidence for deep venous thrombosis in the visualized veins of the right lower extremity. [address] [address] [address] Scan Report Signed Patient: Raymundo Ferreira MR#: [id number] : 1935 Acct:[id number] Age/Sex: 87 / M ADM Date: 02/26/23 Loc: HO.ED Attending Dr: Ordering Physician: Sneha Zavaleta NP Date of Service: 02/26/23 Procedure(s): CT pelvis wo IV con Accession Number(s): [id number] cc: Sneha Zavaleta NP~ EXAMINATION: CT PELVIS WITHOUT CONTRAST CLINICAL INFORMATION: Prostate cancer, pain. Rule out mass.? COMPARISON: CT scan of the abdomen and pelvis dated 06/02/2018.? ? TECHNIQUE: Helical scanning was performed with submillimeter collimation through the pelvis. Sagittal and coronal multiplanar 2-D reconstructions were obtained.? Lack of intravenous and oral contrast limits visceral evaluation. This CT examination was performed using dose optimization techniques as appropriate, variously including the following: *Automated exposure control *Adjustment of mA and/or kV according to patient size (this includes techniques or standardized protocols for targeted exams where dose is matched to indication/reason for exam; i.e. extremities or head) *Use of iterative reconstruction technique DLP: 249 mGy-cm FINDINGS: PELVIS: The visualized small bowel is unremarkable. No evidence for acute appendicitis. Mild diverticulosis in the sigmoid colon without surrounding abnormality. The rectum is unremarkable. Brachytherapy seeds in the prostate gland without surrounding abnormality. Urinary bladder small diverticuli posterolateral, right without associated abnormality. No lymphadenopathy. OSSEOUS STRUCTURES: L4-L5 moderate L5-S1 severe degenerative disc disease. Mild bilateral sacroiliac and hip degenerative joint changes. No acute/suspicious abnormality. SOFT TISSUES: Unremarkable. CT/CT pelvis wo IV con IMPRESSION: ? 1. No acute/suspicious abnormality to explain the patient's symptoms. 2. Several incidental findings detailed above similar to the previous study. ? Tests considered The following testing was considered but not selected: patient able to ambulate with walker, no difficulty with ambulating/neurological deficits to suggest cord compression/caude equina/epidural abscess to suggest need for MRI, NSY eval and or admission. Discharge Plan Discharge Clinical Impression: Acute lumbar radiculopathy Patient Disposition: Home, Self-Care Instructions: Lumbar Radiculopathy (ED), Lower Back Exercises (ED) Additional Instructions: Follow-up with your PCP as you may need an outpatient MRI Return for weakness in the extremity, fever, incontinence of urine/stool Use the walker Prescriptions: New naproxen 500 mg tablet 500 mg PO BID PRN (Reason: pain) Qty: 20 0RF cyclobenzaprine 10 mg tablet 10 mg PO TID PRN (Reason: muscle spasm) Qty: 10 0RF (DME) walker Misc See Rx Instructions .Route Qty: 1 0RF Rx Instructions: As directed No Action (DME) FreeStyle Lite Strips Strip See Rx Instructions .ROUTE .MEDSUPPLY Qty: 100 3RF Rx Instructions: test twice a day sitagliptin phosphate 50 mg tablet 50 mg PO DAILY Qty: 90 3RF metformin 500 mg tablet 1,000 mg PO BID Qty: 360 3RF aspirin 81 mg tablet,delayed release (DR/EC) 81 mg PO DAILY ferrous sulfate [Feosol] 325 mg (65 mg iron) tablet 325 mg PO DAILY cholecalciferol (vitamin D3) 50 mcg (2,000 unit) capsule 50 mcg PO DAILY cyanocobalamin (vitamin B-12) 5,000 mcg capsule 5,000 mcg PO DAILY ascorbate calcium (vitamin C) 500 mg tablet 500 mg PO DAILY Zoladex 3.6 mg implant 3.6 mg subcut Q28D oxybutynin chloride 5 mg tablet extended release 24hr 5 mg PO DAILY tamsulosin 0.4 mg capsule 0.4 mg PO DAILY Fluad Quad 2020-21(65y up)(PF) 60 mcg (15 mcg x 4)/0.5 mL syringe IM loratadine 10 mg tablet 10 mg PO DAILY cephalexin 500 mg capsule 500 mg PO TID 7 Days Qty: 21 0RF Nubeqa 300 mg tablet 600 mg PO BID Referrals: Emily Irvin MD [Primary Care Provider] - 1 week Interventions: ED Discharge Assessment Last Done: 02/26/23 16:41 Discharge Date/Time: 02/26/23 16:42
[2023-02-26 12:25] LABS: MANUAL DIFF FLAG NO
[2023-02-26 12:29] LABS: Basophils Percent Auto 0.6 % (0-2); Eosinophils Absolute Auto 0.1 X10*3/uL (0.0-0.4); Eosinophils Percent Auto 1.8 % (0-4); Hematocrit 35.9 % (42.0-52.0); Hemoglobin 12.5 g/dl (14.0-18.0); Imm Gran Abs Auto 0.02 X10*3/uL (0.00-0.03); Imm Gran Pct Auto 0.4 % (0.0-0.4); Lymphocytes Absolute Auto 0.7 X10*3/uL (1.2-4.9); Lymphocytes Percent Auto 13.9 % (20-40); Mean Corpuscular HGB Conc 34.8 g/dl (31.0-36.0); Mean Corpuscular Hemoglobin 30.9 pg (27.0-33.0); Mean Corpuscular Volume 88.9 fL (80.0-98.0); Mean Platelet Volume 9.4 fL (9.4-12.4); Monocytes Absolute Auto 0.5 X10*3/uL (0.1-1.2); Monocytes Percent Auto 10.2 % (2-11); Neutrophils Absolute Auto 3.7 x10*3/uL (2.0-8.3); Neutrophils Percent Auto 73.1 % (45-73); Platelet Count 242 X10*3/uL (160-400); Red Blood Count 4.04 X10*6/uL (4.60-5.80); Red Cell Distribution Width 14.2 % (11.0-16.0); White Blood Count 5.1 X10*3/uL (4.8-10.8)
[2023-02-26 12:35] LABS: INTERNATIONAL NORM RATIO 0.9 (0.9-1.1); Prothrombin Time 11.1 SEC (11.1-13.3)
[2023-02-26 12:38] LABS: Partial Thromboplastin Time 26.9 SEC (26.0-36.4)
[2023-02-26 12:43] LABS: Alanine Aminotransferase 12 U/L (0-40); Albumin Level 4.1 g/dL (3.5-5.0); Alkaline Phosphatase 54 U/L (39-117); Anion Gap 13 (12-20); Aspartate Amino Transferase 17 U/L (5-37); Bilirubin Direct 0.2 mg/dL (0.0-0.5); Bilirubin Total 0.5 mg/dL (0.0-1.0); Blood Urea Nitrogen 15 mg/dL (9-16); Calcium 9.9 mg/dL (8.4-10.2); Carbon Dioxide 28 mmol/L (22-29); Chloride 97 mmol/L (96-108); Creatinine Clr Calc Pharmacy 58.7; Estimated Glomerular Filt Rate > 60; Glucose Random 151 mg/dL (60-115); Magnesium 1.8 mg/dL (1.6-2.6); Potassium 4.5 mmol/L (3.3-5.1); Sodium 133 mmol/L (135-145)
[2023-02-26 13:30] VITALS: BP 159/53; PULSE 50; RESP 16
--- NOTE | 2023-02-26 16:29 | PC.NURSE ---
ambulation trial using walker, pt ambulated with strong steady gait using walker. reporting improvement from this morning
== END 2023-02-26 16:42 | disposition home or self-care (01) ==
PROVIDERS: Physician Assistant Medical; Emergency Provider Student in an Organized Health Care Education/Training Program; PCP Internal Medicine
DX: M54.16 Radiculopathy, lumbar region (principal); M79.604 Pain in right leg; C61 Malignant neoplasm of prostate; E11.9 Type 2 diabetes mellitus without complications; Z79.899 Other long term (current) drug therapy; Z79.82 Long term (current) use of aspirin; Z79.84 Long term (current) use of oral hypoglycemic drugs
CPT/HCPCS: 36415; 72192; 80048; 80076; 83735; 85025; 85610; 85730; 93971; 99282; 99284

== ENCOUNTER 2023-03-10 08:37 | Outpatient (AMB) | payer MEDICARE, SELFPAY ==
[2023-03-10 08:38] VITALS: BP 136/70; PULSE 49; O2SAT 99; BMI 19.5
--- NOTE | 2023-03-10 08:38 | MHC.PC.OV ---
Vital Signs 03/10/23 08:38 Height 5 ft 8 in Weight 128 lb BMI 19.5 BP 136/70 Blood Pressure Location Lt brachial Position Sitting Pulse 49 L Pulse Source Pulse Oximeter Pulse Oximetry (%) 99 Oxygen Delivery Method Room Air Intake Visit Reasons: ER follow up/ knee pain Intake Note: Pt is here today for ER follow up visit. Pt sates that he has pain and swelling in his R knee for about 2 weeks now. Allergies No Known Allergies [No Known Allergies*] Allergy (Verified 03/10/23 08:45) Medication List - Last Reconciled 03/10/23 by Emily Irvin MD ascorbate calcium (vitamin C) 500 mg PO DAILY aspirin 81 mg PO DAILY blood sugar diagnostic (FreeStyle Lite Strips) test twice a day cholecalciferol (vitamin D3) 50 mcg PO DAILY cyanocobalamin (vitamin B-12) 5,000 mcg PO DAILY darolutamide (Nubeqa) 600 mg PO BID ferrous sulfate (Feosol) 325 mg PO DAILY flu vac 2020 [id number](PF) 60 mcg (15 mcg x 4)/0.5 mL mL IM goserelin (Zoladex) 3.6 mg subcut Q28D loratadine 10 mg PO DAILY metformin 1,000 mg (2 x 500 mg) PO BID oxybutynin chloride ER 5 mg PO DAILY sitagliptin phosphate 50 mg PO DAILY tamsulosin 0.4 mg PO DAILY walker As directed Tobacco use date assessed: 01/06/23 HPI ER follow up/ knee pain HPI Details Pt presents for f/u ER for acute sciatica radiating to right lower extremity. Patient is feeling better but still reports pain when walking on and off, but not at rest. Patient denies weakness or numbness in extremities , change in bowel or bladder . he recently had a CT of the abdomen pelvis for follow-up on stage IV prostate cancer and was found to have advanced degenerative disc changes in the L5-S1 level. [facility] Medical History Annual physical exam Prostate CA Paget's disease DM type 2 (diabetes mellitus, type 2) Family History Father No problems noted. Mother No problems noted. Social History Housing: House Alcohol intake: current Alcohol intake frequency: holidays/special occasions only Patient Tobacco Use Status: Never used Tobacco e-Cigarette/Vaping Use: Never Used Second Hand Smoke Exposure: No service: Yes Current occupational status: retired Current occupational exposures/hazards: No Cognitive needs: No Hearing needs: No Vision needs: Yes Questionnaire Thrive Questionnaire Date Thrive assessed: 07/08/22 AMAURY-7 AMB Questionnaire AMAURY-7 Date AMAURY - 7 assessed: 07/08/22 Source: Developed by Drs. David Ram, Niru Krueger, Gurwinder Fernandes and colleagues, with an educational lacy from [employer] Review of Systems Const All systems reviewed & are unremarkable except as noted in HPI and below Reports no additional complaints Eyes Reports no additional complaints ENT Reports no additional complaints Card Reports no additional complaints Resp Reports no additional complaints GI Reports no additional complaints Reports no additional complaints Neuro Reports no additional complaints Physical exam (Primary Care) Vital Signs: Last Vital Signs Pulse 49 L 03/10/23 08:38 BP 136/70 03/10/23 08:38 Pulse Ox 99 03/10/23 08:38 Oxygen Delivery Method Room Air 03/10/23 08:38 BMI result Body Mass Index 19.5 Tobacco/Smoking Status: Tobacco use Status Tobacco use date assessed 01/06/23 03/10/23 08:42 Patient Tobacco Use Status Never used Tobacco 03/10/23 08:42 e-Cigarette/Vaping Use Never Used 03/10/23 08:42 Thrive Assessment: Date of Thrive Assessment Date Thrive assessed 07/08/22 03/10/23 08:42 Const General: no acute distress Resp Effort & Inspection: normal respiratory effort Auscultation: clear to auscultation bilaterally Cardio Heart sounds: S1 normal heart sound present and S2 normal heart sound present GI Inspection: Yes normal to inspection Palpation (GI): Soft to palpation Back/Spine/Pelvis Other: Decreased range of motion in lumbar spine paraspinal tenderness right more than left, straight leg rising 45 degrees on the right 90 degrees on the left, motor strength 5/5 bilaterally Extrem General: Yes no clubbing, cyanosis or edema Assessment and Plan Assessment & Plan (1) Lumbar radiculopathy: Code(s): M54.16 - Radiculopathy, lumbar region Plan: Referred to physical therapy (2) Prostate CA: Comment: by Bx 2016, txd ADT Dr Mackenzie, Dr. Aidan Méndez, started RTx 2019 Code(s): C61 - Malignant neoplasm of prostate Plan: Follow-up with urology (3) DM type 2 (diabetes mellitus, type 2): Code(s): E11.9 - Type 2 diabetes mellitus without complications Plan: Continue current treatment and ADA diet Orders: Orders PT Evaluation and Treatment Today M54.16 - Radiculopathy, lumbar region Coding Level of Care Code Est Pt Level 4 (53662) Diagnoses Lumbar radiculopathy M54.16 Prostate CA C61 DM type 2 (diabetes mellitus, type 2) E11.9
== END 2023-03-10 09:58 | disposition home or self-care (01) ==
PROVIDERS: PCP Internal Medicine; Visit Provider Internal Medicine
DX: M54.16 Radiculopathy, lumbar region (principal); C61 Malignant neoplasm of prostate; E11.9 Type 2 diabetes mellitus without complications
CPT/HCPCS: 99214

== ENCOUNTER 2023-03-17 09:45 | Outpatient (REF) | payer MEDICARE, SELFPAY ==
[2023-03-17 13:23] LABS: Folate > 20.0 ng/mL (> or = 4.0); Vitamin B12 > 2000 pg/mL (200-900)
== END 2023-03-17 09:46 | disposition home or self-care (01) ==
LOC: HO.HMGCLDS 09:45
PROVIDERS: PCP Internal Medicine; Visit Provider Internal Medicine
DX: E53.8 Deficiency of other specified B group vitamins (principal)
CPT/HCPCS: 36415; 82607; 82746

== ENCOUNTER 2023-04-17 11:00 | Outpatient (RCR) | payer MEDICARE, SELFPAY ==
--- NOTE | 2023-03-17 11:54 | MHC.PT.EP ---
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 Pt is deemed an appropriate candidate for skilled PT services to address his physical impairments and improve his function. Frequency and Duration: The patient will be seen 2x/wk x5wks Short Term Goals: Initiate HEP Improve baseline pain <5/10; Initial: 7/10 Outreach Assistant Goals: [place] with HEP Improve Elsa outcome score by at least 13 points; Initial: 21 Pt will be able to stand for more than a half hour without pain; initial: pain prevents pt from standing more than 1/2 hour Pt will be able to sit for over an hour without pain; initial: pain prevents pt from sitting more than an hour Treatment Plan: Modalities to reduce pain, spasms and effusion. Manual therapy to restore motion and function. Therapeutic exercise to improve strength and flexibility. Neuromuscular re-education for posture and balance. Therapeutic activities to return to functional activities of daily living. Electronically signed by: Akhil Townsend PT. Please sign and return to therapist. Thank you for your referral.
--- NOTE | 2023-04-17 12:21 | MHC.PT.DC ---
[facility] [place] Office [place] Office [place] Office [address] Magaly Liang [address] [phone] F: [phone] F: [phone] F: [phone] F: [phone] Physical Therapy Discharge Report Diagnosis: Lumbar radiculopathy Date of Surgery: Date of Evaluation: 03/17/23 Date of Discharge: 04/17/23 Treatments to Date: 10 Cancellations to Date: No Shows to Date: Discharge Status: Independent with HEP Recommend MD Follow-up Discharge Summary: 04/17: Raymundo has been an active participant in his therapy in and out of the clinic, he has made some progress towards his goals with some improvements in LBP, and activity tolerance and strength though does persist with decreased tolerance for sitting for long duration, walking intermediate to long duration, pivoting on R LE, aw well as bending and lifting items from the ground. He does have R medial knee pain which is unrelated to his LBP as this is point specific and sharp with weight bearing and pivoting. His R LE edema is improved of his thigh though persist with fluctuating 1-2+ pitting of his anterior distal tibia. He has a follow up next week with his PCP. Electronically signed by: Akhil Townsend PT. Please sign and return to therapist. Thank you for your referral.
== END 2023-04-17 12:19 | disposition home or self-care (01) ==
LOC: HO.PTCHIC 11:00
PROVIDERS: PCP Internal Medicine; Visit Provider Internal Medicine
DX: M54.16 Radiculopathy, lumbar region (principal)
CPT/HCPCS: 97110; 97140; 97161; 97530

== ENCOUNTER 2023-04-25 09:39 | Outpatient (AMB) | payer MEDICARE, SELFPAY ==
[2023-04-25 09:45] VITALS: BP 136/70; PULSE 50; O2SAT 99; BMI 19.6
--- NOTE | 2023-04-25 09:45 | A.OFFPC_ITS ---
Vital Signs 04/25/23 09:45 Height 5 ft 8 in Weight 129 lb BMI 19.6 BP 136/70 Blood Pressure Location Lt brachial Position Sitting Pulse 50 Pulse Source Pulse Oximeter Pulse Oximetry (%) 99 Oxygen Delivery Method Room Air Intake Visit Reasons: Leg Inflammation Issue's Follow Up Intake Note: Pt is here today for a follow up visit on leg inflammation. Allergies No Known Allergies [No Known Allergies*] Allergy (Verified 03/10/23 08:45) Medication List - Last Reconciled 04/25/23 by Emily Irvin MD ascorbate calcium (vitamin C) 500 mg PO DAILY aspirin 81 mg PO DAILY blood sugar diagnostic (FreeStyle Lite Strips) test twice a day cholecalciferol (vitamin D3) 50 mcg PO DAILY cyanocobalamin (vitamin B-12) 5,000 mcg PO DAILY darolutamide (Nubeqa) 600 mg PO BID ferrous sulfate (Feosol) 325 mg PO DAILY flu vac 2020 65up-azxIB12C(PF) 60 mcg (15 mcg x 4)/0.5 mL mL IM goserelin (Zoladex) 3.6 mg subcut Q28D loratadine 10 mg PO DAILY metformin 1,000 mg (2 x 500 mg) PO BID oxybutynin chloride ER 5 mg PO DAILY sitagliptin phosphate 50 mg PO DAILY tamsulosin 0.4 mg PO DAILY walker As directed Tobacco use date assessed: 04/25/23 Dental Screening Dental Screen Date: 04/25/23 Did you have a dental visit in the last 12 months?: Yes Did you have a dental problem in the last 6 months where you did not have access to dental care?: No Was dental information given to patient?: Patient has dentist HPI Leg Inflammation Issue's Follow Up HPI Details PATIENT PRESENTS COMPLAINING OF PERSISTENT RIGHT KNEE PAIN AND RIGHT LOWER EXTREMITY SWELLING SINCE JANUARY.. Patient was seen in the ER had negative right lower extremity venous Doppler. He completed physical therapy for right knee pain. Patient denies chest pain shortness of breath PND orthopnea. [facility] Medical History Annual physical exam Prostate CA Paget's disease DM type 2 (diabetes mellitus, type 2) Family History Father No problems noted. Mother No problems noted. Social History Housing: House Alcohol intake: current Alcohol intake frequency: holidays/special occasions only Patient Tobacco Use Status: Never used Tobacco e-Cigarette/Vaping Use: Never Used Second Hand Smoke Exposure: No service: Yes Current occupational status: retired Current occupational exposures/hazards: No Cognitive needs: No Hearing needs: No Vision needs: Yes Questionnaire Thrive Questionnaire Date Thrive assessed: 07/08/22 AMAURY-7 AMB Questionnaire AMAURY-7 Date AMAURY - 7 assessed: 07/08/22 Source: Developed by Drs. David Ram, Niru Krueger, Gurwinder Fernandes and colleagues, with an educational lacy from [employer]. Review of Systems Const All systems reviewed & are unremarkable except as noted in HPI and below Reports no additional complaints Eyes Reports no additional complaints ENT Reports no additional complaints Card Reports no additional complaints Resp Reports no additional complaints GI Reports no additional complaints Physical exam (Primary Care) Vital Signs: Last Vital Signs Pulse 40 L 04/25/23 09:45 BP 136/70 04/25/23 09:45 Pulse Ox 99 04/25/23 09:45 Oxygen Delivery Method Room Air 04/25/23 09:45 BMI result Body Mass Index 19.6 Tobacco/Smoking Status: Tobacco use Status Tobacco use date assessed 04/25/23 04/25/23 10:03 Patient Tobacco Use Status Never used Tobacco 04/25/23 10:03 e-Cigarette/Vaping Use Never Used 04/25/23 09:45 Thrive Assessment: Date of Thrive Assessment Date Thrive assessed 07/08/22 04/25/23 09:45 Const General: no acute distress Neck Neck: Yes supple Resp Effort & Inspection: normal respiratory effort Auscultation: clear to auscultation bilaterally Cardio Rhythm: regular rhythm Heart sounds: S1 normal heart sound present and S2 normal heart sound present Extrem Other: There is arthritic deformity of right knee and decreased range of motion, there is 2+ pitting edema on the right lower extremity no erythema or warmth Assessment and Plan Assessment & Plan (1) Knee pain, right: Code(s): M25.561 - Pain in right knee Plan: Patient will have a x-ray of right knee and will be referred to orthopedic for cortisone injection. Patient was advised to wear compression knee highs and elevate lower extremities when sitting Orders: Orders XR knee RT 3V Today M25.561 - Pain in right knee Referrals Orthopedics Referral M25.561 - Pain in right knee Coding Level of Care Code Est Pt Level 3 (75019) Diagnoses Knee pain, right M25.561
== END 2023-04-25 10:35 | disposition home or self-care (01) ==
PROVIDERS: PCP Internal Medicine; Visit Provider Internal Medicine
DX: M25.561 Pain in right knee (principal)
CPT/HCPCS: 99213

== ENCOUNTER 2023-04-25 10:35 | Outpatient (REF) | payer MEDICARE, SELFPAY ==
--- NOTE | ~2023-04-25 | XR_ITS ---
EXAMINATION: XR KNEE, RIGHT CLINICAL INFORMATION: Pain COMPARISON: None available. TECHNIQUE: Four views of the right knee. FINDINGS: No fracture or dislocation. No joint effusion. Medial and lateral knee joint narrowings with chondrocalcinosis. Vascular calcifications. XR/XR knee RT 4V IMPRESSION: Mild degenerative changes and chondrocalcinosis. No acute bony pathology.
== END 2023-04-25 10:36 | disposition home or self-care (01) ==
LOC: HO.HMGCX 10:35
PROVIDERS: PCP Internal Medicine; Visit Provider Internal Medicine
DX: M25.561 Pain in right knee (principal)
CPT/HCPCS: 73564

== ENCOUNTER 2023-05-12 07:38 | Outpatient (REF) | payer MEDICARE, SELFPAY ==
--- NOTE | ~2023-05-12 | XR_ITS ---
EXAMINATION: XR KNEE AP STANDING CLINICAL INFORMATION: [place] view of right knee and bilateral standing view. COMPARISON: Right knee from 04/25/2023 TECHNIQUE: AP bilateral standing view of the knees was obtained. FINDINGS: There is narrowing of the medial compartment of right knee joint with mild varus deformity of left knee. There is chondrocalcinosis better visualized in the lateral compartment but seen bilaterally. There is enthesopathy of patella XR/XR knee RT 1V IMPRESSION: Chondrocalcinosis of right knee joint. Narrowing cough medial compartment
--- NOTE | ~2023-05-12 | XR_ITS ---
EXAMINATION: XR KNEE AP STANDING CLINICAL INFORMATION: [place] view of right knee and bilateral standing view. COMPARISON: Right knee from 04/25/2023 TECHNIQUE: AP bilateral standing view of the knees was obtained. FINDINGS: There is narrowing of the medial compartment of right knee joint with mild varus deformity of left knee. There is chondrocalcinosis better visualized in the lateral compartment but seen bilaterally. There is enthesopathy of patella XR/XR knee standing BI IMPRESSION: Chondrocalcinosis of right knee joint. Narrowing cough medial compartment
== END 2023-05-12 07:39 | disposition home or self-care (01) ==
LOC: HO.HOSX 07:38
PROVIDERS: Visit Provider Physician Assistant
DX: M17.11 Unilateral primary osteoarthritis, right knee (principal); E11.9 Type 2 diabetes mellitus without complications
CPT/HCPCS: 20610; 73560; 73565; 99212; J1020

== ENCOUNTER 2023-05-12 12:53 | Outpatient (AMB) | payer MEDICARE, SELFPAY ==
--- NOTE | 2023-05-12 13:05 | A.OFFVIS_ITS ---
Intake Vital Signs 05/12/23 13:06 Height 5 ft 8 in Weight 129 lb BMI 19.6 Intake Visit Reasons: New Prob- Rt knee pain Intake Note: Raymundo is a 88 year old male who presents today for a evaluation for his right knee pain. Patient reports ongoing pain for 2-3 months. He states when he is walking he notices some swelling. Allergies No Known Allergies [No Known Allergies*] Allergy (Verified 05/12/23 13:06) HPI New Prob- Rt knee pain HPI Details 88-year-old left hand dominant male who presents in the office today for an evaluation of right knee pain. The patient reports ongoing pain for 2-3 months, since . He claims to have increased edema with ambulating. [facility] Medical History Annual physical exam Prostate CA Paget's disease DM type 2 (diabetes mellitus, type 2) Family History Father No problems noted. Mother No problems noted. Social History Housing: House Alcohol intake: current Alcohol intake frequency: holidays/special occasions only Patient Tobacco Use Status: Never used Tobacco e-Cigarette/Vaping Use: Never Used Second Hand Smoke Exposure: No service: Yes Current occupational status: retired Current occupational exposures/hazards: No Cognitive needs: No Hearing needs: No Vision needs: Yes Review of Systems Const All systems reviewed & are unremarkable except as noted in HPI and below Physical Exam Vital Signs: BMI result Body Mass Index 19.6 Const General: cooperative, healthy appearing and no acute distress Resp Effort & Inspection: normal respiratory effort and able to speak in complete sentences Cardio Rate: regular rate Peripheral pulses: Peripheral pulses 2+ throughout GI Palpation (GI): Soft to palpation Skin Lesions: no lesions Rashes: no rashes Extrem Other: Right knee: Normal to inspection. No ecchymosis, erythema, or joint effusion. No tenderness to palpation to the lateral joint line. Tenderness to palpation to the medial joint line. Full knee extension and flexion. Mild crepitus felt with ROM. Negative John's. Negative anterior drawer. NVI. Office Procedures Joint Injection/Drain Joint Injection/Drain Primary Site: right knee Prep: site was prepped using aseptic technique, ethochloride spray was applied and injection warnings given Injected: 40 mg of, DepoMedrol, with 8 mL of (2% plain lido ) and in the joint Approach Used: anterolateral Procedure: The patient tolerated the procedure well, but had some pain with the injection and there was some relief with the local anesthesia Coding 57431 - Large joint Procedure code (CPT) selection complete Results Reviewed Results Reviewed: 05/12/23 13:31 Lidocaine HCl 2 % MPF [Xylocaine 2 % MPF] 5 ml .ROUTE .STK-MED ONE methylPREDNISolone acetate [DEPO-MedroL] 40 mg .ROUTE .STK-MED ONE Assessment & Plan Assessment & Plan (1) Osteoarthritis of right knee: Code(s): M17.11 - Unilateral primary osteoarthritis, right knee Qualifiers: Osteoarthritis type: unspecified Qualified Code(s): M17.11 - Unilateral primary osteoarthritis, right knee (2) Diabetes mellitus: Code(s): E11.9 - Type 2 diabetes mellitus without complications Plan Mr. Ferreira is an 88-year-old left hand dominant male who presents in the office today for an evaluation of right knee pain. The patient reports ongoing pain for 2-3 months, since . He claims to have increased edema with ambulating. The patient was offered a cortisone injection in the right knee with 80 mg of DepoMedrol. The patient was explained the risk, benefits, and alternatives to receiving this injection. After receiving consent for the injection, the patient had the procedure done while in office today. The patient tolerated the procedure well with no complications. Due to the patient?s history of diabetes, they were instructed to monitor his blood glucose level. The patient was informed that they could see a rise in their numbers and if the numbers became too high, they were instructed to call their PCP. The patient was also informed that they could have facial flushing as a side effect of the injection but this will pass. Follow up will be PRN, or sooner if needed. X-rays of the right knee which were obtained while in the office today and were reviewed by me, Alyssa Yeung PA-C, revealed degenerative changes. Orders: Orders XR knee standing BI Today M25.569 - Pain in unspecified knee XR knee RT 1V Today M25.569 - Pain in unspecified knee Patient Instructions: Scribed for Alyssa Yeung PA-C by Latonia Santiago territory sales manager medical, on 05/12/2023 at 1:10 pm, EST. Coding Level of Care Code Est Pt Level 4 (08625) Diagnoses Osteoarthritis of right knee, unspecified osteoarthritis type M17.11 Osteoarthritis type: unspecified Diabetes mellitus E11.9 CPT Codes Coding - 91182 Large joint: 92469 - Large joint ([id number])
[2023-05-12 13:06] VITALS: BMI 19.6
== END 2023-05-12 14:08 | disposition home or self-care (01) ==
PROVIDERS: PCP Internal Medicine; Visit Provider Physician Assistant
DX: M17.11 Unilateral primary osteoarthritis, right knee (principal); E11.9 Type 2 diabetes mellitus without complications
CPT/HCPCS: 20610; 99214

== ENCOUNTER 2023-10-16 08:49 | Outpatient (REF) | payer MEDICARE, SELFPAY ==
[2023-10-16 10:20] LABS: MANUAL DIFF FLAG NO
[2023-10-16 10:36] LABS: Alanine Aminotransferase 10 U/L (0-40); Albumin Level 4.2 g/dL (3.5-5.0); Alkaline Phosphatase 55 U/L (39-117); Anion Gap 13 (12-20); Aspartate Amino Transferase 15 U/L (5-37); Bilirubin Total 0.7 mg/dL (0.0-1.0); Blood Urea Nitrogen 16 mg/dL (9-16); Calcium 9.8 mg/dL (8.4-10.2); Carbon Dioxide 29 mmol/L (22-29); Chloride 102 mmol/L (96-108); Cholesterol 170 mg/dL (<200); Estimated Glomerular Filt Rate > 60; Glucose Fasting 132 mg/dL (60-99); HDL Cholesterol 78 mg/dL (>40); LDL Cholesterol Calculated 76 mg/dL (<100); Potassium 4.7 mmol/L (3.3-5.1); Sodium 139 mmol/L (135-145); Total Protein 7.2 g/dL (6.5-8.0); Triglycerides 84 mg/dL (<150)
[2023-10-16 10:40] LABS: Basophils Percent Auto 0.6 % (0-2); Eosinophils Absolute Auto 0.2 X10*3/uL (0.0-0.4); Eosinophils Percent Auto 4.3 % (0-4); Hematocrit 37.3 % (42.0-52.0); Hemoglobin 12.5 g/dl (14.0-18.0); Imm Gran Abs Auto 0.01 X10*3/uL (0.00-0.03); Imm Gran Pct Auto 0.2 % (0.0-0.4); Lymphocytes Absolute Auto 1.2 X10*3/uL (1.2-4.9); Lymphocytes Percent Auto 22.1 % (20-40); Mean Corpuscular HGB Conc 33.5 g/dl (31.0-36.0); Mean Corpuscular Hemoglobin 30.2 pg (27.0-33.0); Mean Corpuscular Volume 90.1 fL (80.0-98.0); Mean Platelet Volume 10.1 fL (9.4-12.4); Monocytes Absolute Auto 0.6 X10*3/uL (0.1-1.2); Monocytes Percent Auto 11.2 % (2-11); Neutrophils Absolute Auto 3.3 x10*3/uL (2.0-8.3); Neutrophils Percent Auto 61.6 % (45-73); Platelet Count 258 X10*3/uL (160-400); Red Blood Count 4.14 X10*6/uL (4.60-5.80); Red Cell Distribution Width 14.1 % (11.0-16.0); White Blood Count 5.3 X10*3/uL (4.8-10.8)
[2023-10-16 10:53] LABS: Estimated Average Glucose 143 mg/dL; Hemoglobin A1c % 6.6 % (<6.0)
[2023-10-16 11:29] LABS: Microalbum/Creatinine Ratio Ur 16.2 ug/mg cr (<30)
[2023-10-16 18:13] LABS: Folate 8.7 ng/mL (> or = 4.0); Vitamin B12 622 pg/mL (200-900)
== END 2023-10-16 08:50 | disposition home or self-care (01) ==
LOC: HO.HMGCLDS 08:49
PROVIDERS: PCP Internal Medicine; Visit Provider Internal Medicine
DX: E53.8 Deficiency of other specified B group vitamins (principal); E11.9 Type 2 diabetes mellitus without complications; C61 Malignant neoplasm of prostate
CPT/HCPCS: 36415; 80053; 80061; 82043; 82570; 82607; 82746; 83036; 85025

== ENCOUNTER 2023-10-22 10:21 | Outpatient (AMB) | payer MEDICARE, SELFPAY ==
[2023-10-22 11:03] VITALS: BP 118/64; PULSE 50; O2SAT 99; BMI 19.3
--- NOTE | 2023-10-22 11:03 | MHC.PC.OV ---
Vital Signs 10/22/23 11:03 Height 5 ft 8 in Weight 127 lb BMI 19.3 BP 118/64 Blood Pressure Location Rt brachial Position Sitting Pulse 50 Pulse Source Pulse Oximeter Pulse Oximetry (%) 99 Oxygen Delivery Method Room Air Intake Visit Reasons: Annual physical Allergies No Known Allergies [No Known Allergies*] Allergy (Verified 10/22/23 11:05) Medication List - Last Reconciled 10/22/23 by Emily Irvin MD ascorbate calcium (vitamin C) 500 mg PO DAILY aspirin 81 mg PO DAILY blood sugar diagnostic (FreeStyle Lite Strips) test twice a day cholecalciferol (vitamin D3) 50 mcg PO DAILY cyanocobalamin (vitamin B-12) 5,000 mcg PO DAILY darolutamide (Nubeqa) 600 mg PO BID ferrous sulfate (Feosol) 325 mg PO DAILY goserelin (Zoladex) 3.6 mg subcut Q28D loratadine 10 mg PO DAILY metformin 1,000 mg (2 x 500 mg) PO BID oxybutynin chloride ER 5 mg PO DAILY tamsulosin 0.4 mg PO DAILY walker As directed Tobacco use date assessed: 10/22/23 Fall risk assessment: No Falls in past year Last assessed Fall Risk: 10/22/23 Dental Screening Dental Screen Date: 10/22/23 Did you have a dental visit in the last 12 months?: Yes Did you have a dental problem in the last 6 months where you did not have access to dental care?: No Was dental information given to patient?: Patient has dentist HPI Annual physical HPI Details Pt presents for PE. PFSH Medical History DM type 2 (diabetes mellitus, type 2) Annual physical exam Prostate CA Paget's disease Family History Father No problems noted. Mother No problems noted. Social History Housing: House Alcohol intake: current Alcohol intake frequency: holidays/special occasions only Patient Tobacco Use Status: Never used Tobacco e-Cigarette/Vaping Use: Never Used Second Hand Smoke Exposure: No service: Yes Current occupational status: retired Current occupational exposures/hazards: No Cognitive needs: No Hearing needs: No Vision needs: Yes Questionnaire PHQ-9 Over the last 2 weeks, how often have you been bothered by any of the following problems? 43109 - PHQ-9 Billing: Patient declined-do not bill Source: Developed by Drs. David Ram, Niru Krueger, Gurwinder Fernandes and colleagues, with an educational lacy from [employer]. Thrive Questionnaire Date Thrive assessed: 10/22/23 What is your living situation today?: I choose not to answer this question Within the past 12 months, did the food you bought not last and you didn't have the money to get more?: I choose not to answer this question Within the past 12 months, did you worry whether your food would run out before you got money to buy more?: I choose not to answer this question Do you have trouble paying for medicines?: I choose not to answer this question Do you have trouble getting transportation to medical appointments?: I choose not to answer this question Do you have trouble paying your heating and electricity bill?: I choose not to answer this question Do you have trouble taking care of your child, family member or friend?: I choose not to answer this question Do you have trouble with day-to-day activities such as bathing, preparing meals, shopping, managing finances, etc.?: I choose not to answer this question Are you currently unemployed and looking for a job?: I choose not to answer this question Are you interested in more education?: I choose not to answer this question Currently or been in a relationship where the following occur: I choose not to answer this question THRIVE Score: 0 AUDIT C Alcohol Use Questionnaire (AUDIT-C) 1. How often do you have a drink containing alcohol?: Monthly or less 2. How many drinks containing alcohol do you have on a typical day when you are drinking?: 1 or 2 3. How often do you have six or more drinks on one occasion?: Never Total Score: 1 AMAURY-7 AMB Questionnaire AMAURY-7 Date AMAURY - 7 assessed: 10/22/23 Source: Developed by Drs. David Ram, Niru Krueger, Gurwinder Fernandes and colleagues, with an educational lacy from [employer]. AMAURY-7 Assessment Billing AMAURY-7 Assessment Tool: pt declined-do not bill Review of Systems Const All systems reviewed & are unremarkable except as noted in HPI and below Reports no additional complaints Eyes Reports no additional complaints ENT Reports no additional complaints Card Reports no additional complaints Resp Reports no additional complaints GI Reports no additional complaints Reports no additional complaints Physical exam (Primary Care) Vital Signs: Last Vital Signs Pulse 46 L 10/22/23 11:03 BP 118/64 10/22/23 11:03 Pulse Ox 99 10/22/23 11:03 Oxygen Delivery Method Room Air 10/22/23 11:03 BMI result Body Mass Index 19.3 Tobacco/Smoking Status: Tobacco use Status Tobacco use date assessed 10/22/23 10/22/23 11:06 Patient Tobacco Use Status Never used Tobacco 10/22/23 11:06 e-Cigarette/Vaping Use Never Used 10/22/23 11:06 Thrive Assessment: Date of Thrive Assessment Date Thrive assessed 10/22/23 10/22/23 11:06 Currently or been in a relationship where the following occur: I choose not to answer this question Const General: no acute distress HENMT Head: Yes normal to inspection General nose exam: Normal external nose present Mouth: Normal oral and palatal mucosa present Eyes General: appearance normal, both eyes and all related structures Neck Neck: Yes no lymphadenopathy and Yes supple Resp Effort & Inspection: normal respiratory effort Auscultation: clear to auscultation bilaterally Cardio Rhythm: regular rhythm Heart sounds: S1 normal heart sound present and S2 normal heart sound present GI Inspection: Yes normal to inspection Palpation (GI): Soft to palpation Percussion: Yes normal to percussion Auscultation: normal bowel sounds Assessment and Plan Assessment & Plan (1) Prostate CA: Comment: by Bx 2016, txd ADT Dr Mackenzie, Dr. Aidan Méndez, started RTx 2019 Code(s): C61 - Malignant neoplasm of prostate Plan: f/u urology (2) Diabetes mellitus: Code(s): E11.9 - Type 2 diabetes mellitus without complications Plan: A1C is 6.6, ADA diet , regular exercise discussed with the patient continue metformin and follow-up in 6 months with a fasting labs before (3) Annual physical exam: Code(s): Z00.00 - Encounter for general adult medical examination without abnormal findings Plan: Well-balanced diet regular physical activity discussed with the patient follow-up in 6 months Orders: Orders Complete Blood Count Auto Diff 6 Months C61 - Malignant neoplasm of prostate, E11.9 - Type 2 diabetes mellitus without complications Hemoglobin A1c 6 Months C61 - Malignant neoplasm of prostate, E11.9 - Type 2 diabetes mellitus without complications Comprehensive [place]. Panel Fast 6 Months C61 - Malignant neoplasm of prostate, E11.9 - Type 2 diabetes mellitus without complications Lipid Panel 6 Months C61 - Malignant neoplasm of prostate, E11.9 - Type 2 diabetes mellitus without complications Medications: Discontinued sitagliptin phosphate Discontinued Reason: Doctor's Order 50 mg PO DAILY 90 tabs 3RF Coding Level of Care Code Est Pt Prev Care >65y(98249) Diagnoses Prostate CA C61 Diabetes mellitus E11.9 Annual physical exam Z00.00
== END 2023-10-22 11:44 | disposition home or self-care (01) ==
PROVIDERS: PCP Internal Medicine; Visit Provider Internal Medicine
DX: C61 Malignant neoplasm of prostate (principal); E11.9 Type 2 diabetes mellitus without complications; Z00.00 Encounter for general adult medical examination without abnormal findings
CPT/HCPCS: 99397

== ENCOUNTER 2024-04-15 08:01 | Outpatient (REF) | payer MEDICARE, SELFPAY ==
[2024-04-15 10:13] LABS: MANUAL DIFF FLAG NO
[2024-04-15 10:21] LABS: Basophils Percent Auto 0.5 % (0-2); Eosinophils Absolute Auto 0.2 X10*3/uL (0.0-0.4); Hematocrit 36.5 % (42.0-52.0); Hemoglobin 12.3 g/dl (14.0-18.0); Imm Gran Abs Auto 0.02 X10*3/uL (0.00-0.03); Imm Gran Pct Auto 0.3 % (0.0-0.4); Lymphocytes Absolute Auto 1.3 X10*3/uL (1.2-4.9); Lymphocytes Percent Auto 22.3 % (20-40); Mean Corpuscular HGB Conc 33.7 g/dl (31.0-36.0); Mean Corpuscular Hemoglobin 30.7 pg (27.0-33.0); Mean Platelet Volume 10.1 fL (9.4-12.4); Monocytes Absolute Auto 0.6 X10*3/uL (0.1-1.2); Monocytes Percent Auto 11.1 % (2-11); Neutrophils Absolute Auto 3.6 x10*3/uL (2.0-8.3); Neutrophils Percent Auto 61.8 % (45-73); Platelet Count 236 X10*3/uL (160-400); Red Blood Count 4.01 X10*6/uL (4.60-5.80); Red Cell Distribution Width 14.6 % (11.0-16.0); White Blood Count 5.8 X10*3/uL (4.8-10.8)
[2024-04-15 11:03] LABS: Estimated Average Glucose 160 mg/dL; Hemoglobin A1C 169.9851 umol/L; Hemoglobin A1c % 7.2 % (<6.0)
[2024-04-15 11:06] LABS: Alanine Aminotransferase 9 U/L (0-40); Albumin Level 3.9 g/dL (3.5-5.0); Alkaline Phosphatase 54 U/L (39-117); Anion Gap 11 (12-20); Aspartate Amino Transferase 15 U/L (5-37); Bilirubin Total 0.4 mg/dL (0.0-1.0); Blood Urea Nitrogen 15 mg/dL (9-16); Calcium 9.6 mg/dL (8.4-10.2); Carbon Dioxide 29 mmol/L (22-29); Chloride 102 mmol/L (96-108); Cholesterol 152 mg/dL (<200); Estimated Glomerular Filt Rate > 60; Glucose Fasting 159 mg/dL (60-99); HDL Cholesterol 79 mg/dL (>40); LDL Cholesterol Calculated 60 mg/dL (<100); Potassium 4.7 mmol/L (3.3-5.1); Sodium 137 mmol/L (135-145); Total Protein 6.5 g/dL (6.5-8.0); Triglycerides 67 mg/dL (<150)
== END 2024-04-15 08:02 | disposition home or self-care (01) ==
LOC: HO.HMGCLDS 08:01
PROVIDERS: PCP Internal Medicine; Visit Provider Internal Medicine
DX: E11.9 Type 2 diabetes mellitus without complications (principal); C61 Malignant neoplasm of prostate
CPT/HCPCS: 36415; 80053; 80061; 83036; 85025

== ENCOUNTER 2024-04-19 10:37 | Outpatient (AMB) | payer MEDICARE, SELFPAY ==
[2024-04-19 11:04] VITALS: BP 104/66; PULSE 73; O2SAT 99; BMI 19.3
--- NOTE | 2024-04-19 11:04 | A.OFFPC_ITS ---
Vital Signs 04/19/24 11:04 Height 5 ft 8 in Weight 127 lb BMI 19.3 BP 104/66 Blood Pressure Location Lt brachial Position Sitting Pulse 73 Pulse Source Pulse Oximeter Pulse Oximetry (%) 99 Oxygen Delivery Method Room Air Intake Visit Reasons: 6 month follow up Intake Note: Pt is here today for 6 months follow up visit. Allergies No Known Allergies [No Known Allergies*] Allergy (Verified 04/19/24 11:08) Medication List - Last Reconciled 04/19/24 by Emily Irvin MD ascorbate calcium (vitamin C) 500 mg PO DAILY aspirin 81 mg PO DAILY blood sugar diagnostic (FreeStyle Lite Strips) test twice a day cholecalciferol (vitamin D3) 50 mcg PO DAILY cyanocobalamin (vitamin B-12) 5,000 mcg PO DAILY darolutamide (Nubeqa) 600 mg PO BID Farxiga (dapagliflozin propanediol) 5 mg PO DAILY NS ferrous sulfate (Feosol) 325 mg PO DAILY goserelin (Zoladex) 3.6 mg subcut Q28D loratadine 10 mg PO DAILY metformin 1,000 mg (2 x 500 mg) PO BID oxybutynin chloride ER 5 mg PO DAILY tamsulosin 0.4 mg PO DAILY walker As directed Tobacco use date assessed: 04/19/24 Fall risk assessment: No Falls in past year Last assessed Fall Risk: 04/19/24 Dental Screening Dental Screen Date: 04/19/24 Did you have a dental visit in the last 12 months?: Yes Did you have a dental problem in the last 6 months where you did not have access to dental care?: No Was dental information given to patient?: Patient has dentist HPI 6 month follow up HPI Details Patient presents for the follow-up type 2 diabetes. He is undergoing treatment for prostate CA with Urology [facility] Medical History DM type 2 (diabetes mellitus, type 2) Annual physical exam Prostate CA Paget's disease Family History Father No problems noted. Mother No problems noted. Social History Housing: House Alcohol intake: current Alcohol intake frequency: holidays/special occasions only Patient Tobacco Use Status: Never used Tobacco e-Cigarette/Vaping Use: Never Used Second Hand Smoke Exposure: No service: Yes Current occupational status: retired Current occupational exposures/hazards: No Cognitive needs: No Hearing needs: No Vision needs: Yes Questionnaire Thrive Questionnaire Date Thrive assessed: 10/22/23 AMAURY-7 AMB Questionnaire AMAURY-7 Date AMAURY - 7 assessed: 10/22/23 Source: Developed by Drs. David Ram, Niru Krueger, Gurwinder Fernandes and colleagues, with an educational lacy from [employer]. Review of Systems Const All systems reviewed & are unremarkable except as noted in HPI and below ENT Reports no additional complaints Card Reports no additional complaints Resp Reports no additional complaints GI Reports no additional complaints Reports no additional complaints Physical exam (Primary Care) Vital Signs: Last Vital Signs Pulse 73 04/19/24 11:04 BP 104/66 04/19/24 11:04 Pulse Ox 99 04/19/24 11:04 Oxygen Delivery Method Room Air 04/19/24 11:04 BMI result Body Mass Index 19.3 Tobacco/Smoking Status: Tobacco use Status Tobacco use date assessed 04/19/24 04/19/24 11:13 Patient Tobacco Use Status Never used Tobacco 04/19/24 11:13 e-Cigarette/Vaping Use Never Used 04/19/24 11:04 Thrive Assessment: Date of Thrive Assessment Date Thrive assessed 10/22/23 04/19/24 11:04 Const General: no acute distress HENMT Head: Yes normal to inspection Face and sinus: Yes normal facial exam Throat: Yes posterior oropharynx normal Neck Neck: Yes no lymphadenopathy and Yes supple Resp Effort & Inspection: normal respiratory effort Auscultation: clear to auscultation bilaterally Cardio Rhythm: regular rhythm Heart sounds: S1 normal heart sound present and S2 normal heart sound present GI Inspection: Yes normal to inspection Palpation (GI): Soft to palpation Percussion: Yes normal to percussion Coding Level of Care Code Est Pt Level 4 (83394) Diagnoses Diabetes mellitus E11.9 Prostate CA C61 Paget's disease Assessment & Plan Assessment & Plan (1) Diabetes mellitus: Code(s): E11.9 - Type 2 diabetes mellitus without complications Category: Medical Plan: A1c is 7.2, ADA diet increase physical activity discussed with the patient Farxiga will be added to metformin, patient follow-up in 3 months with a fasting labs (2) Prostate CA: Comment: by Bx 2016, txd ADT Dr Mackenzie, Dr. 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 Panel Fast 3 Months C61 - Malignant neoplasm of prostate, E11.9 - Type 2 diabetes mellitus without complications Hemoglobin A1c 3 Months C61 - Malignant neoplasm of prostate, E11.9 - Type 2 diabetes mellitus without complications Complete Blood Count Auto Diff 3 Months C61 - Malignant neoplasm of prostate, E11.9 - Type 2 diabetes mellitus without complications Medications: New Farxiga (dapagliflozin propanediol) 5 mg PO DAILY 90 tabs 0RF NS
== END 2024-04-19 11:23 | disposition home or self-care (01) ==
PROVIDERS: PCP Internal Medicine; Visit Provider Internal Medicine
DX: E11.9 Type 2 diabetes mellitus without complications (principal); C61 Malignant neoplasm of prostate

== ENCOUNTER → 2024-04-19 10:37 | Outpatient (BNVA) | payer MEDICARE, SELFPAY | PROVIDERS: PCP Internal Medicine; Visit Provider Internal Medicine | DX: E11.9 Type 2 diabetes mellitus without complications (principal); C61 Malignant neoplasm of prostate; Z79.84 Long term (current) use of oral hypoglycemic drugs | CPT/HCPCS: 99212 ==

== ENCOUNTER 2024-04-27 13:19 | Outpatient (AMB) | payer MEDICARE, SELFPAY ==
--- NOTE | 2024-04-27 13:24 | MHC.OFFVIS ---
Intake Visit Reasons: OV- Right Knee Pain, injection request Intake Note: Raymundo is a 89 year old male who presents today for a repeat injection for his right knee. His last injection was on 05/12/23 in his right knee. Patient mentions that his last injection gave him relief.He states that his pain comes and goes. Patient reports at the moment he is not having any pain and would like to know what he shoulder as far as repeating the injection. Allergies No Known Allergies [No Known Allergies*] Allergy (Verified 04/19/24 11:08) HPI HPI OV- Right Knee Pain, injection request: Details: 89-year-old left hand dominant male who presents in the office today for a follow-up of right knee pain. I last saw the patient in the office on 05/12/24 when he was given a cortisone injection in the right knee. While in the office today, the patient reports her last cortisone injection provided her relief. He mentions intermittent right knee pain. He denies having right knee pain currently and would like to know about repeating an injection today. The patient has a medical history of diabetes mellitus. His recent HbA1c done on 04/15/24 was elevated at 7.2%. [facility] Medical History DM type 2 (diabetes mellitus, type 2) Annual physical exam Prostate CA Paget's disease Family History Father No problems noted. Mother No problems noted. Social History Housing: House Alcohol intake: current Alcohol intake frequency: holidays/special occasions only Patient Tobacco Use Status: Never used Tobacco e-Cigarette/Vaping Use: Never Used Second Hand Smoke Exposure: No service: Yes Current occupational status: retired Current occupational exposures/hazards: No Cognitive needs: No Hearing needs: No Vision needs: Yes Review of Systems Const All systems reviewed & are unremarkable except as noted in HPI and below Physical Exam Const General: cooperative, healthy appearing and no acute distress Resp Effort & Inspection: normal respiratory effort and able to speak in complete sentences Cardio Rate: regular rate Peripheral pulses: Peripheral pulses 2+ throughout GI Palpation (GI): Soft to palpation Skin Lesions: no lesions Rashes: no rashes Extrem Other: Right knee: Normal to inspection. No ecchymosis, erythema, or joint effusion. No tenderness to palpation to the lateral joint line. Tenderness to palpation to the medial joint line. Full knee extension and flexion. Mild crepitus felt with ROM. Negative John's. Negative anterior drawer. NVI. Assessment & Plan Assessment & Plan (1) Osteoarthritis of right knee: Code(s): M17.11 - Unilateral primary osteoarthritis, right knee Category: Medical Qualifiers: Osteoarthritis type: unspecified Qualified Code(s): M17.11 - Unilateral primary osteoarthritis, right knee (2) Diabetes mellitus: Code(s): E11.9 - Type 2 diabetes mellitus without complications Category: Medical Plan 89-year-old left hand dominant male who presents in the office today for a follow-up of right knee pain. I last saw the patient in the office on 05/12/24 when he was given a cortisone injection in the right knee. While in the office today, the patient reports her last cortisone injection provided her relief. He mentions intermittent right knee pain. He denies having right knee pain currently and would like to know about repeating an injection today. The patient has a medical history of diabetes mellitus. His recent HbA1c done on 04/15/24 was elevated at 7.2%. The patient is no longer experiencing right knee pain at this time. He would like to reschedule the appointment in 6 months when he becomes more active and anticipating the need of a repeat injection at that time. Follow-up will be in 6 months, or sooner if needed Follow up will be PRN, or sooner if needed. Patient Instructions: Scribed by Susy Pete medical front desk specialist, for Alyssa Yeung PA-C on 04/27/24 at 1:40 pm EST. Coding Level of Care Code Est Pt Level 3 (31960) Diagnoses Osteoarthritis of right knee, unspecified osteoarthritis type M17.11 Osteoarthritis type: unspecified Diabetes mellitus E11.9
== END 2024-04-27 13:37 | disposition home or self-care (01) ==
LOC: HO.HOS 13:19
PROVIDERS: PCP Internal Medicine; Visit Provider Physician Assistant
DX: M17.11 Unilateral primary osteoarthritis, right knee (principal); E11.9 Type 2 diabetes mellitus without complications
CPT/HCPCS: 99213

== ENCOUNTER → 2024-04-27 13:19 | Outpatient (BNVA) | payer MEDICARE, SELFPAY | PROVIDERS: PCP Internal Medicine; Visit Provider Physician Assistant | DX: M17.11 Unilateral primary osteoarthritis, right knee (principal); E11.9 Type 2 diabetes mellitus without complications | CPT/HCPCS: 99212 ==

== ENCOUNTER 2024-07-23 08:22 | Outpatient (REF) | payer MEDICARE, SELFPAY ==
[2024-07-23 10:18] LABS: MANUAL DIFF FLAG NO
[2024-07-23 10:24] LABS: Basophils Percent Auto 0.8 % (0-2); Eosinophils Absolute Auto 0.3 X10*3/uL (0.0-0.4); Eosinophils Percent Auto 5.4 % (0-4); Hematocrit 41.3 % (42.0-52.0); Hemoglobin 13.6 g/dl (14.0-18.0); Imm Gran Abs Auto 0.02 X10*3/uL (0.00-0.03); Imm Gran Pct Auto 0.4 % (0.0-0.4); Lymphocytes Absolute Auto 1.3 X10*3/uL (1.2-4.9); Lymphocytes Percent Auto 25.1 % (20-40); Mean Corpuscular HGB Conc 32.9 g/dl (31.0-36.0); Mean Corpuscular Hemoglobin 29.4 pg (27.0-33.0); Mean Corpuscular Volume 89.4 fL (80.0-98.0); Mean Platelet Volume 10.3 fL (9.4-12.4); Monocytes Absolute Auto 0.6 X10*3/uL (0.1-1.2); Monocytes Percent Auto 11.2 % (2-11); Neutrophils Percent Auto 57.1 % (45-73); Platelet Count 243 X10*3/uL (160-400); Red Blood Count 4.62 X10*6/uL (4.60-5.80); Red Cell Distribution Width 14.8 % (11.0-16.0); White Blood Count 5.2 X10*3/uL (4.8-10.8)
[2024-07-23 10:55] LABS: Estimated Average Glucose 157 mg/dL; Hemoglobin A1C 192.7332 umol/L; Hemoglobin A1c % 7.1 % (<6.0); Total Hemoglobin (HGBA1C) 3551.2581 umol/L
[2024-07-23 12:23] LABS: Alanine Aminotransferase 7 U/L (0-40); Albumin Level 4.1 g/dL (3.5-5.0); Anion Gap 16 (12-20); Aspartate Amino Transferase 28 U/L (5-37); Bilirubin Total 0.6 mg/dL (0.0-1.0); Blood Urea Nitrogen 18 mg/dL (9-16); Calcium 9.7 mg/dL (8.4-10.2); Carbon Dioxide 25 mmol/L (22-29); Chloride 103 mmol/L (96-108); Estimated Glomerular Filt Rate > 60; Glucose Fasting 140 mg/dL (60-99); Potassium 5.3 mmol/L (3.3-5.1); Sodium 139 mmol/L (135-145); Total Protein 7.6 g/dL (6.5-8.0)
[2024-07-23 14:20] LABS: Alkaline Phosphatase 53 U/L (39-117)
== END 2024-07-23 08:23 | disposition home or self-care (01) ==
LOC: HO.HMGCLDS 08:22
PROVIDERS: PCP Internal Medicine; Visit Provider Internal Medicine
DX: E11.9 Type 2 diabetes mellitus without complications (principal); C61 Malignant neoplasm of prostate
CPT/HCPCS: 36415; 80053; 83036; 85025

== ENCOUNTER 2024-07-27 09:50 | Outpatient (AMB) | payer MEDICARE, SELFPAY ==
[2024-07-27 10:05] VITALS: BP 112/60; PULSE 56; TEMP 36.4; O2SAT 98; BMI 19.2
--- NOTE | 2024-07-27 10:05 | MHC.PC.OV ---
Vital Signs 07/27/24 10:05 Height 5 ft 8 in Weight 126 lb BMI 19.2 BP 112/60 Blood Pressure Location Lt brachial Position Sitting Pulse 56 Pulse Source Pulse Oximeter Temp 97.6 F Temp Source Oral Pulse Oximetry (%) 98 Oxygen Delivery Method Room Air Intake Visit Reasons: 3 months f/up Intake Note: Pt is here today for 3 months follow up visit. Allergies No Known Allergies [No Known Allergies*] Allergy (Verified 07/27/24 10:12) Medication List - Last Reconciled 07/27/24 by Emily Irvin MD ascorbate calcium (vitamin C) 500 mg PO DAILY blood sugar diagnostic (FreeStyle Lite Strips) test twice a day cholecalciferol (vitamin D3) 50 mcg PO DAILY cyanocobalamin (vitamin B-12) 5,000 mcg PO DAILY darolutamide (Nubeqa) 600 mg PO BID Farxiga (dapagliflozin propanediol) 10 mg PO DAILY NS ferrous sulfate (Feosol) 325 mg PO DAILY goserelin (Zoladex) 3.6 mg subcut Q28D loratadine 10 mg PO DAILY metformin 1,000 mg PO BID oxybutynin chloride ER 5 mg PO DAILY tamsulosin 0.4 mg PO DAILY walker As directed Tobacco use date assessed: 07/27/24 Fall risk assessment: No Falls in past year Last assessed Fall Risk: 07/27/24 Dental Screening Dental Screen Date: 07/27/24 Did you have a dental visit in the last 12 months?: Yes Did you have a dental problem in the last 6 months where you did not have access to dental care?: No Was dental information given to patient?: Patient has dentist HPI 3 months f/up HPI Details Patient presents for the follow-up of type 2 diabetes 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 [facility] Medical History DM type 2 (diabetes mellitus, type 2) Annual physical exam Prostate CA Paget's disease Family History Father No problems noted. Mother No problems noted. Social History Housing: House Alcohol intake: current Alcohol intake frequency: holidays/special occasions only Patient Tobacco Use Status: Never used Tobacco e-Cigarette/Vaping Use: Never Used Second Hand Smoke Exposure: No service: Yes Current occupational status: retired Current occupational exposures/hazards: No Cognitive needs: No Hearing needs: No Vision needs: Yes Questionnaire PHQ-9 Over the last 2 weeks, how often have you been bothered by any of the following problems? 1. Little interest or pleasure in doing things: nearly every day 2. Feeling down, depressed, or hopeless: nearly every day 3. Trouble falling or staying asleep, or sleeping too much: more than half the days 4. Feeling tired or having little energy: nearly every day 5. Poor appetite or overeating: more than half the days 6. Feeling bad about yourself - or that you are a failure or have let yourself or your family down: not at all 7. Trouble concentrating on things, such as reading the newspaper or watching television: not at all 8. Moving or speaking so slowly that other people could have noticed. Or the opposite - being so fidgety or restless that you have been moving around a lot more than usual: not at all 9. Thoughts that you would be better off or of hurting yourself in some way: not at all Total score: 13 Depression Screening Interpretation: Positive (Patient not interested in taking medications or seeing a counselor) Depression Screening Follow-up: Existing condition Depression Screening Done: Yes 38371 - PHQ-9 Billing: Yes Source: Developed by Drs. David Ram, Niru Krueger, Gurwinder Fernandes and colleagues, with an educational lacy from [employer]. Thrive Questionnaire Date Thrive assessed: 07/27/24 I am a: Patient What is your living situation today?: I have a steady place to live Within the past 12 months, did the food you bought not last and you didn't have the money to get more?: Never true Within the past 12 months, did you worry whether your food would run out before you got money to buy more?: I choose not to answer this question Do you have trouble paying for medicines?: No Do you have trouble getting transportation to medical appointments?: No Do you have trouble paying your heating and electricity bill?: No Do you have trouble taking care of your child, family member or friend?: No Do you have trouble with day-to-day activities such as bathing, preparing meals, shopping, managing finances, etc.?: No Are you currently unemployed and looking for a job?: No Are you interested in more education?: No Please select the resources that you would like help with: None Currently or been in a relationship where the following occur: No concerns reported THRIVE Score: 0 AUDIT C Alcohol Use Questionnaire (AUDIT-C) 1. How often do you have a drink containing alcohol?: 2-4 times a month 2. How many drinks containing alcohol do you have on a typical day when you are drinking?: 1 or 2 3. How often do you have six or more drinks on one occasion?: Never Total Score: 2 AMAURY-7 AMB Questionnaire AMAURY-7 Date AMAURY - 7 assessed: 07/27/24 Feeling nervous, anxious, or on edge: 0 = Not at all Not being able to stop or control worryin = Not at all Worrying too much about different things: 0 = Not at all Trouble relaxin = Not at all Being so restless that it is hard to sit still: 0 = Not at all Becoming easily annoyed or irritable: 0 = Not at all Feeling afraid as if something awful might happen: 0 = Not at all Total AMAURY-7 score (0-4 normal; 5-9 mild; 10-14 moderate; 15-21 severe): 0 Source: Developed by Drs. David Ram, Niru Krueger, Gurwinder Fernandes and colleagues, with an educational lacy from [employer]. AMAURY-7 Assessment Billing AMAURY-7 Assessment Tool: AMAURY-7 Assessment 38291 Review of Systems Const All systems reviewed & are unremarkable except as noted in HPI and below Eyes Reports no additional complaints ENT Reports no additional complaints Card Reports no additional complaints Resp Reports no additional complaints GI Reports no additional complaints Reports no additional complaints Physical exam (Primary Care) Vital Signs: Last Vital Signs Temp 97.6 F 07/27/24 10:05 Pulse 42 L 07/27/24 10:05 BP 112/60 07/27/24 10:05 Pulse Ox 98 07/27/24 10:05 Oxygen Delivery Method Room Air 07/27/24 10:05 BMI result Body Mass Index 19.2 Tobacco/Smoking Status: Tobacco use Status Tobacco use date assessed 07/27/24 07/27/24 10:13 Patient Tobacco Use Status Never used Tobacco 07/27/24 10:05 e-Cigarette/Vaping Use Never Used 07/27/24 10:05 PHQ-9: PHQ-9 Score PHQ-9: Total score 13 07/27/24 10:50 Depression Screening Interpretation: Positive (Patient not interested in taking medications or seeing a counselor) Depression Screening Follow-up: Existing condition Thrive Assessment: Date of Thrive Assessment Date Thrive assessed 07/27/24 07/27/24 10:13 Currently or been in a relationship where the following occur: No concerns reported Const General: no acute distress HENMT Throat: Yes posterior oropharynx normal Resp Effort & Inspection: normal respiratory effort Auscultation: clear to auscultation bilaterally Cardio Rate: bradycardic Rhythm: regular rhythm Heart sounds: S1 normal heart sound present and S2 normal heart sound present GI Inspection: Yes normal to inspection Palpation (GI): Soft to palpation Percussion: Yes normal to percussion Auscultation: normal bowel sounds Immunizations pneumoc 20-ta conj-dip cr(PF) 0.5 mL IM syringe Performing Provider: Emily Irvin MD Performing Location: [facility] Administered by: LAKSHMI Younger on 07/27/24 10:50 Dose Route Admin Location Dispensed Lot Number Expiration Date [facility] Run Lead 0.5 mL IM Right Deltoid 0.5 mL [id number] 07/30/25 [id number] [employer]/PFIZER VIS Given Date VIS Provided VIS Publication Date 07/27/24 Single Vaccine 21 Eligibility Eligibility Date Funding Source Not [facility] Eligible 07/27/24 Private Coding Level of Care Code Est Pt Level 4 (31683) Diagnoses Diabetes mellitus E11.9 Prostate CA C61 Additional Codes AMAURY-7 Assessment Billing - AMAURY-7 Assessment Tool: AMAURY-7 Assessment 31700 ([id number]) PHQ-9 - 67685 - PHQ-9 Billing: Yes ([id number]) Assessment & Plan Assessment & Plan (1) Diabetes mellitus: Code(s): E11.9 - Type 2 diabetes mellitus without complications Category: Medical Plan: A1c is 7.1, ADA diet regular physical activity discussed with the patient. Patient reports fasting blood glucose elevated up to 180. He will increase Farxiga to 10 mg a day continue metformin. Follow-up in 6 months with a fasting labs before (2) Prostate CA: Comment: by Bx 2016, txd ADT Dr Mackenzie, Dr. Aidan Méndez, started RTx 2019 Code(s): C61 - Malignant neoplasm of prostate Category: Medical Plan: Follow-up with oncology and urology Orders: Orders Pneumococcal 20 Immunization Today Z23 - Encounter for immunization Complete Blood Count Auto Diff 6 Months C61 - Malignant neoplasm of prostate, E11.9 - Type 2 diabetes mellitus without complications Comprehensive [place]. Panel Fast 6 Months C61 - Malignant neoplasm of prostate, E11.9 - Type 2 diabetes mellitus without complications Hemoglobin A1c 6 Months C61 - Malignant neoplasm of prostate, E11.9 - Type 2 diabetes mellitus without complications Lipid Panel 6 Months C61 - Malignant neoplasm of prostate, E11.9 - Type 2 diabetes mellitus without complications Microalbumin, Random (w Creat) 6 Months C61 - Malignant neoplasm of prostate, E11.9 - Type 2 diabetes mellitus without complications Medications: New Farxiga (dapagliflozin propanediol) 10 mg PO DAILY 90 tabs 3RF NS Changed From metformin 1,000 mg (2 x 500 mg) PO BID 360 tabs 3RF To metformin 500 mg tab 4 tablets a day 1,000 mg PO BID Discontinued Farxiga (dapagliflozin propanediol) Discontinued Reason: Doctor's Order 5 mg PO DAILY 90 tabs 0RF NS
--- OUTSIDE RECORDS SUMMARY | 2024-07-27 10:27 | XMS_ITS | Clinical Summary ---
Author Organization [facility] Address [address] [place] [address] Phone Care Team Providers Care Dental Hygiene Professor Name Role Phone Emily Irvin MD Primary Care Provider [phone] Allergies Active Allergy Reactions Criticality Noted Date Comments Other 06/16/2024 Seasonal Medications Medication Sig Dispensed Refills Start Date End Date Status calcium carbonate (CALCIUM 500 ORAL) Take by mouth daily. Active goserelin acetate (ZOLADEX SUBQ) Inject under the skin every 6 (six) months. - Subcutaneous Active cholecalciferol (VITAMIN D-3) 50 mcg (2,000 unit) tablet Take by mouth daily. Active ferrous sulfate 325 mg (65 mg elemental iron) tablet Take 1 tablet (325 mg total) by mouth every morning with breakfast. Active finasteride (PROSCAR) 5 mg tablet Take 1 tablet (5 mg total) by mouth daily. Active metFORMIN (GLUCOPHAGE) 500 mg tablet Take 1 tablet (500 mg total) by mouth every morning with breakfast. 2 pills bid Active oxybutynin (DITROPAN) 5 mg tablet Take 1 tablet (5 mg total) by mouth 3 (three) times a day. Active tamsulosin (FLOMAX) 0.4 mg 24 hr capsule Take 1 capsule (0.4 mg total) by mouth daily. Active goserelin (ZOLADEX) 10.8 mg implant Ordered Dose: 10.8 mg Route: Subcutaneous Frequency: Once Admin Dose: 10.8 mg Active darolutamide (NUBEQA) 300 mg tabletIndications: Prostate cancer (CMS/HCC) Take 2 tablets (600 mg total) by mouth 2 (two) times a day 120 tablet 11 05/17/2024 Active Farxiga 5 mg tablet Take 1 tablet (5 mg total) by mouth 1 (one) time each day. 04/19/2024 Active fluticasone propionate (FLONASE) 50 mcg/actuation nasal spray Administer 1 spray into each nostril if needed. 03/12/2024 Active Active Problems Problem Noted Date Diagnosed Date Prostate cancer 11/08/2017 Encounters Date Type Department Care Team Description 06/16/2024 10:30 AM EST - 06/16/2024 11:59 PM EST Hospital Encounter [facility] In[facility] [address] [address] Prostate cancer (CMS/HCC) (Primary Dx) Discharge Disposition: Home or Self Care 06/16/2024 9:45 AM EST Office Visit [facility] Hematology Oncology [address] [place] [phone] Juan Bermudez MD Prostate cancer (CMS/HCC) (Primary Dx) from Last 3 Months Surgical History Surgery Date Site/Laterality Comments APPENDECTOMY PROCEDURE:APPENDECTOMY OTHER SURGICAL HISTORY PROCEDURE:spinal repair Medical History Medical History Date Comments Prostate cancer (CMS/HCC) DX:Pro state cancer ([facility]) Hypertension DX:Hypertension 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 Diabetes mellitus ([facility]/HCC) DX:D iabetes mellitus (HCC) Vitamin D deficiency DX:Vitamin D deficiency Iron deficiency DX:Iron deficien cy Social History Tobacco Use Types Packs/Day Years Used Date Smoking Tobacco: Former Cigars Smokeless Tobacco: Never Tobacco Cessation:Counseling Given: Not Answered Alcohol Use Standard Drinks/Week Comments Yes 0 (1 standard drink = 0.6 oz pur e alcohol) Social Sex and Gender Information Value Date Recorded Sex Assigned at Not on file Gender Identity Not on file Sexual Orientation Not on file Job Start Date Occupation Industry Not on file Not on file Not on file Obstetrics History Last Filed Vital Signs Vital Sign Reading Time Taken Comments Blood Pressure 139/51 06/16/2024 10:39 AM EST Pulse 104 06/16/2024 10:39 AM EST Temperature 36.1 ??C (97 ??F) 06/16/2024 10:39 AM EST Respiratory Rate - - Oxygen Saturation 100% 06/16/2024 10:39 AM EST Inhaled Oxygen Concentration - - Weight 55.3 kg (122 lb) 06/16/2024 10:39 AM EST Height 172.7 cm (5' 8 ) 03/17/2024 10:17 AM EDT Body Mass Index 18.55 03/17/2024 10:17 AM EDT Plan of Treatment Upcoming Encounters Date Type Department Care Team (Late st Contact Info) Description 09/16/2024 10:00 AM EDT Office Visit [facility] Hematology Oncology [address] [place] [address] Juan Bermudez MD [address] [place] [address] 09/16/2024 10:30 AM EDT Appointment [facility] [address] [phone] Health Maintenance Due Date Last Done Comments Zoster Vaccines (1 of 2) 06/25/2007 04/30/2007 RSV Immunization Patients 60+ Years Old (1 - 1-dose 75+ series) 2010 Cholesterol Screening (Lipid Panel) 06/06/2022 Depression Screening 06/06/2022 Medicare Annual Wellness Visit 06/06/2022 Social Influencers of Health Screening 06/06/2022 COVID-19 Vaccine ( season) 2024 03/24/2023, 06/14/2022, 04/03/2021 Falls Risk Assessment 06/16/2025 06/16/2024 DTaP,Tdap,and Td Vaccines (4 - Td or Tdap) 01/15/2033 01/15/2023, 09/28/2014, 05/16/2003 Pneumococcal Vaccine: 65+ Years Completed 09/21/2014, 04/30/2013 Influenza Vaccine Completed 03/26/2024, , 04/04/2022, Additional history exists HIB Vaccines Aged Out No longer eligi ble based on patient's age to complete this topic HPV Vaccines Aged Out No longer eligi ble based on patient's age to complete this topic Hepatitis A Vaccines Aged Out No long er eligible based on patient's age to complete this topic Hepatitis B Vaccines Aged Out No long er eligible based on patient's age to complete this topic IPV Vaccines Aged Out No longer eligi ble based on patient's age to complete this topic MMR Vaccines Aged Out No longer eligi ble based on patient's age to complete this topic Meningococcal ACWY Vaccine Aged Out N o longer eligible based on patient's age to complete this topic RSV Immunization Patients Under 20 months Aged Out No longer eligible based on patient's age to complete this topic Varicella Vaccines Aged Out No longer eligible based on patient's age to complete this topic Procedures Procedure Name Priority Date/Time Associated Diagnosis Comments CBC WITH AUTO DIFFERENTIAL Routine 06/07/2024 1:26 PM EST Malignant neoplasm of prostate (CMS/HCC) PROSTATE SPECIFIC ANTIGEN DIAGNOSTIC Routine 06/07/2024 1:26 PM EST Malignant neoplasm of prostate (CMS/HCC) CBC AND DIFFERENTIAL Routine 06/07/2024 1:26 PM EST Malignant neoplasm of prostate (CMS/HCC) COMPREHENSIVE METABOLIC PANEL Routine 06/07/2024 1:26 PM EST Malignant neoplasm of prostate (CMS/HCC) from Last 3 Months Results * (ABNORMAL) Prostate specific antigen diagnostic (06/07/2024 1:26 PM EST) PSA 6.50(H) 0.00 - 4.00 ng/mL LAB CHEMISTRY METHOD 06/07/2024 2:06 PM EST [facility] Blood Venous blood specimen / Unknown Venipuncture / Unknown 06/07/2024 1:26 PM EST 06/07/2024 1:34 PM EST Narrative [facility] - 06/07/2024 2:06 PM EST The Siemens Advia Centaur Chemiluminescent Immunoassay is used. Results obtained with different assay methods or kits cannot be used interchangeably. Results cannot be interpreted as absolute evidence of the presence or absence of malignant disease. Juan Bermudez MD LAB BLOOD ORDERABLE S [facility] [address] [place] [address], [place] [phone] * (ABNORMAL) CBC auto differential (06/07/2024 1:26 PM EST) [facility] WBC 4.8 4.8 - 10.8 K/mcL LAB HEMETOLOGY METHOD 06/07/2024 1:54 PM [facility] RBC 4.20(L) 4.50 - 5.50 M/mcL LAB HEMETOLOGY METHOD 06/07/2024 1:54 PM [facility] Hemoglobin 12.5(L) 13.5 - 17.5 g/dL LAB HEMETOLOGY METHOD 06/07/2024 1:54 PM [facility] Hematocrit 39.5(L) 42.0 - 54.0 % LAB HEMETOLOGY METHOD 06/07/2024 1:54 PM [facility] MCV 94.3 79.0 - 98.0 FL LAB HEMETOLOGY METHOD 06/07/2024 1:54 PM [facility] MCH 29.8 27.0 - 32.0 pcg LAB HEMETOLOGY METHOD 06/07/2024 1:54 PM [facility] MCHC 31.6(L) 32.0 - 37.0 g/dL LAB HEMETOLOGY METHOD 06/07/2024 1:54 PM [facility] RDW 14.6 11.0 - 15.0 % LAB HEMETOLOGY METHOD 06/07/2024 1:54 PM [facility] Platelets 263 130 - 400 K/mcL LAB HEMETOLOGY METHOD 06/07/2024 1:54 PM [facility] MPV 10.3 7.0 - 11.0 FL LAB HEMETOLOGY METHOD 06/07/2024 1:54 PM [facility] NRBC 0.0 <1.0 % LAB HEMETOLOGY METHOD 06/07/2024 1:54 PM [facility] NRBC Absolute 0.00 <0.10 K/mcL LAB HEMETOLOGY METHOD 06/07/2024 1:54 PM [facility] Neutrophils Relative 55.0 % LAB HEMETOLOGY METHOD 06/07/2024 1:54 PM [facility] Lymphocytes Relative 28.1 % LAB HEMETOLOGY METHOD 06/07/2024 1:54 PM [facility] Monocytes Relative 12.0 % LAB HEMETOLOGY METHOD 06/07/2024 1:54 PM [facility] Eosinophils Relative 3.9 % LAB HEMETOLOGY METHOD 06/07/2024 1:54 PM [facility] Basophils Relative 0.8 % LAB HEMETOLOGY METHOD 06/07/2024 1:54 PM [facility] Immature Granulocytes Relative 0.2 % LAB HEMETOLOGY METHOD 06/07/2024 1:54 PM [facility] Neutrophils Absolute 2.66 1.50 - 7.00 K/mcL LAB HEMETOLOGY METHOD 06/07/2024 1:54 PM [facility] Lymphocytes Absolute 1.36 1.00 - 5.00 K/mcL LAB HEMETOLOGY METHOD 06/07/2024 1:54 PM [facility] Monocytes Absolute 0.58 0.20 - 1.00 K/mcL LAB HEMETOLOGY METHOD 06/07/2024 1:54 PM [facility] Eosinophils Absolute 0.19 0.00 - 0.50 K/mcL LAB HEMETOLOGY METHOD 06/07/2024 1:54 PM [facility] Basophils Absolute 0.04 0.00 - 0.20 K/mcL LAB HEMETOLOGY METHOD 06/07/2024 1:54 PM [facility] Immature Granulocytes Absolute 0.01 0.00 - 0.03 K/mcL LAB HEMETOLOGY METHOD 06/07/2024 1:54 PM [facility] Blood Venous blood specimen / Unknown Venipuncture / Unknown 06/07/2024 1:26 PM EST 06/07/2024 1:33 PM EST Juan Bermudez MD LAB BLOOD ORDERABLE S [facility] [address] [place] [address], * (ABNORMAL) Comprehensive metabolic panel (06/07/2024 1:26 PM EST) Sodium 136 133 - 145 mmol/L LAB CHEMISTRY METHOD 06/07/2024 2:09 PM [facility] Potassium 4.5 3.5 - 5.5 mmol/L LAB CHEMISTRY METHOD 06/07/2024 2:09 PM [facility] Chloride 102 96 - 110 mmol/L LAB CHEMISTRY METHOD 06/07/2024 2:09 PM [facility] CO2 29 21 - 32 mmol/L LAB CHEMISTRY METHOD 06/07/2024 2:09 PM [facility] Anion Gap 5 3 - 11 LAB CHEMISTRY METHOD 06/07/2024 2:09 PM [facility] Glucose 126(H) 70 - 100 mg/dL LAB CHEMISTRY METHOD 06/07/2024 2:09 PM [facility] BUN 16 5 - 25 mg/dL LAB CHEMISTRY METHOD 06/07/2024 2:09 PM [facility] Creatinine 0.88 0.70 - 1.30 mg/dL LAB CHEMISTRY METHOD 06/07/2024 2:09 PM [facility] eGFR 82 >=60 mL/min/1. 73m2 LAB CHEMISTRY METHOD 06/07/2024 2:09 PM [facility] Comment:Calculation based on the??Chronic Kidney Disease Epidemiology Collaboration (CKD-EPI) equation refit??without adjustment for race. BUN/Creatinine Ratio 18.2 LAB CHEMISTRY METHOD 06/07/2024 2:09 PM [facility] Calcium 9.5 8.5 - 10.5 mg/dL LAB CHEMISTRY METHOD 06/07/2024 2:09 PM [facility] AST (SGOT) 11 10 - 42 unit/L LAB CHEMISTRY METHOD 06/07/2024 2:09 PM [facility] ALT (SGPT) 13 10 - 60 unit/L LAB CHEMISTRY METHOD 06/07/2024 2:09 PM [facility] Alkaline Phosphatase 56 42 - 121 unit/L LAB CHEMISTRY METHOD 06/07/2024 2:09 PM [facility] Total Protein 6.8 6.0 - 8.0 g/dL LAB CHEMISTRY METHOD 06/07/2024 2:09 PM [facility] Albumin 3.8 3.2 - 5.0 g/dL LAB CHEMISTRY METHOD 06/07/2024 2:09 PM [facility] Total Bilirubin 0.4 0.0 - 1.4 mg/dL LAB CHEMISTRY METHOD 06/07/2024 2:09 PM [facility] Blood Venous blood specimen / Unknown Venipuncture / Unknown 06/07/2024 1:26 PM EST 06/07/2024 1:34 PM EST Juan Bermudez MD LAB BLOOD ORDERABLE S [facility] [address] [place] [address], from Last 3 Months Care Teams Dental Hygiene Professor Relationship Specialty Start Date End Date Emily Irvin MD [address] [place] [address] PCP - General Nursing Clinical Director 08/24/19
--- OUTSIDE RECORDS SUMMARY | 2024-07-27 10:27 | XMS_ITS | Clinical Summary ---
Author Organization [facility] Address [address] [place] [address] Care Team Providers Care Matrix Drier Tender Name Role Phone Emily Irvin MD Primary Care Provider [phone] Allergies No known active allergies Medications Medication Sig Dispensed Refills Start Date End Date Status finasteride (PROSCAR) 5 MG tablet Take 1 tablet (5 mg total) by mouth daily. 0 Active tamsulosin (FLOMAX) 0.4 MG CAPS Take 1 capsule (0.4 mg total) by mouth daily. 0 Active aspirin EC 81 MG tablet Take 1 tablet (81 mg total) by mouth daily. 0 Active Znksqrg-Mcgybzzul-Vh tamin D (CALCIUM 500 PO) Take by mouth daily. 0 Active ferrous sulfate 325 (65 FE) MG tablet Take 1 tablet (325 mg total) by mouth every morning with breakfast. 0 Active Cholecalciferol (VITAMIN D3) 2000 units TABS Take by mouth daily. 0 Active metFORMIN (GLUCOPHAGE) tablet 500 mg Take 1 tablet (500 mg total) by mouth every morning with breakfast. 2 pills bid 0 Active Goserelin Acetate (ZOLADEX SC) Inject under the skin every 6 (six) months. 0 Active SITagliptin (JANUVIA) 50 MG tablet Take 1 tablet (50 mg total) by mouth daily. 0 Active oxybutynin (DITROPAN) 5 MG tablet Take 1 tablet (5 mg total) by mouth 3 (three) times a day. 0 Active Darolutamide 300 MG TABSIndications:Pros harris cancer (HCC) Take 2 tablets by mouth 2 (two) times a day 120 tablet 11 06/11/2023 Active Active Problems Problem Noted Date Diagnosed Date Prostate cancer 11/08/2017 Social History Tobacco Use Types Packs/Day Years Used Date Smoking Tobacco: Former Smokeless Tobacco: Never Sex and Gender Information Value Date Recorded Sex Assigned at Male 03/15/2024 1:31 PM EDT Gender Identity Not on file Sexual Orientation Not on file Job Start Date Occupation Industry Not on file Not on file Not on file Last Filed Vital Signs Vital Sign Reading Time Taken Comments Blood Pressure 138/43 03/17/2024 10:47 AM EDT Pulse 49 03/17/2024 10:47 AM EDT Temperature 36.2 ??C (97.2 ??F) 03/17/2024 10:47 AM E DT Respiratory Rate 16 12/16/2023 10:42 AM EDT Oxygen Saturation 96% 03/17/2024 10:47 AM EDT Inhaled Oxygen Concentration - - Weight 57.2 kg (126 lb) 03/17/2024 10:47 AM EDT Height 172.7 cm (5' 8 ) 03/17/2024 10:41 AM EDT Body Mass Index 19.16 03/17/2024 10:41 AM EDT Plan of Treatment Health Maintenance Due Date Last Done Comments COVID-19 Vaccine (#1) 1940 Pneumococcal Vaccine (1 of 2 - PCV) 1941 Depression Screening 1947 Preventative Health Evaluation 1953 DTap / Tdap / Td (1 - Tdap) 1954 Shingrix-Zoster Vaccine (1 of 2) 1954 Hepatitis B Vaccines (1 of 3 - Risk 3-dose series) 1995 Fall Risk Assessment 2000 RSV Adult > 60+ Yrs or Pregn ant (1 - 1-dose 75+ series) 2010 Influenza Vaccine (#1) 2024 RSV Ped < 20 months Aged Out No longe r eligible based on patient's age to complete this topic Care Teams Matrix Drier Tender Relationship Specialty Start Date End Date Emily Irvin MD [address] [place] [phone] PCP - General Horse Identifier 08/24/19
--- OUTSIDE RECORDS SUMMARY | 2024-07-27 10:27 | XMS_ITS ---
Author Organization [facility] Address [address] [place] [address] Phone Care Team Providers Care Right Of Way Manager Name Role Phone Emily Irvin MD Primary Care Provider [phone] Active Problems Problem Noted Date Diagnosed Date Prostate cancer 11/08/2017 Current Oncology Plans GOSERELIN ( ZOLADEX ) 10.8 MG EVERY 12 WEEKS* Plan Start Date:06/16/2024 Plan Provider:Juan Bermudez MD Linked Problems Prostate cancer (CMS/HCC) Treatment Medications goserelin (ZOLADEX) Past Plans No past plan information found. Radiation Treatments * No radiation treatments are documented for this patient in [facility]. Treatments may have been administered in another system.
--- OUTSIDE RECORDS SUMMARY | 2024-07-27 10:27 | XMS_ITS ---
Author Organization [facility] Address [address] [place] [address] Care Team Providers Care Shuttle Veneering Supervisor Name Role Phone Emily Irvin MD Primary Care Provider [phone] Active Problems Problem Noted Date Diagnosed Date Prostate cancer 11/08/2017 Current Oncology Plans [facility] GOSERELIN 10.8MG (ZOLADEX)* Plan Start Date:12/16/2023 Plan Provider:Juan Bermudez MD Linked Problems Prostate cancer (HCC) Treatment Medications goserelin (ZOLADEX) Past Plans ONCOLOGY INFUSION THERAPY Plan Name Start Date Discontinue Date Treatment Medications Discontinue Reason Plan Provider [facility] GOSERELIN 10.8MG (ZOLADEX) 12/17/2022 12/16/2023 goserelin (ZOLADEX) Therapy Complete Juan Bermudez MD [facility] GOSERELIN 10.8MG (ZOLADEX) 01/03/2022 12/16/2022 goserelin (ZOLADEX) Therapy Complete Juan Bermudez MD Radiation Treatments * No radiation treatments are documented for this patient in [facility]. Treatments may have been administered in another system.
== END 2024-07-27 10:54 | disposition home or self-care (01) ==
PROVIDERS: PCP Internal Medicine; Visit Provider Internal Medicine
DX: E11.9 Type 2 diabetes mellitus without complications (principal); C61 Malignant neoplasm of prostate; Z23 Encounter for immunization

== ENCOUNTER → 2024-07-27 09:50 | Outpatient (BNVA) | payer MEDICARE, SELFPAY | PROVIDERS: PCP Internal Medicine; Visit Provider Internal Medicine | DX: Z23 Encounter for immunization (principal); E11.9 Type 2 diabetes mellitus without complications; C61 Malignant neoplasm of prostate | CPT/HCPCS: 90471; 90677; 96127; 99212 ==

== ENCOUNTER 2024-09-14 12:44 | Outpatient (AMB) | payer MEDICARE, SELFPAY ==
[2024-09-14 12:48] VITALS: BP 120/72; PULSE 50; TEMP 36.5; O2SAT 100; BMI 19.3
--- NOTE | 2024-09-14 12:48 | MHC.OFFVIS ---
Vital Signs 09/14/24 12:48 Height 5 ft 8 in Weight 127 lb 4 oz BMI 19.3 BP 120/72 Blood Pressure Location Lt brachial Position Sitting Pulse 50 Pulse Source Pulse Oximeter Temp 97.7 F Temp Source Oral Pulse Oximetry (%) 100 Oxygen Delivery Method Room Air Intake Visit Reasons: EP RT laceration on thumb Intake Note: Pt presents to the office today for a right thumb laceration that he got from using a table saw. Pt states this happened Friday09/10/24. Allergies No Known Allergies [No Known Allergies*] Allergy (Verified 09/14/24 12:49) HPI Comments Details: This is an 89-year-old male presenting for evaluation of a laceration to his right distal thumb that occurred on September 10 while using a table saw. Patient is not on any blood thinning medications but he is a tbr-sdsllqe-pqlhnxezh diabetic. Patient states ?I do not like what it looks like?. Patient denies having any fevers, chills, increased redness or discharge from the wound. Patient's last tetanus immunization was 3 years ago. [facility] Medical History DM type 2 (diabetes mellitus, type 2) Annual physical exam Prostate CA Paget's disease Family History Father No problems noted. Mother No problems noted. Social History Housing: House Alcohol intake: current Alcohol intake frequency: holidays/special occasions only Patient Tobacco Use Status: Never used Tobacco e-Cigarette/Vaping Use: Never Used Second Hand Smoke Exposure: No service: Yes Current occupational status: retired Current occupational exposures/hazards: No Cognitive needs: No Hearing needs: No Vision needs: Yes Review of Systems Const All systems reviewed & are unremarkable except as noted in HPI and below Eyes Reports no additional complaints ENT Reports no additional complaints Card Reports no additional complaints Resp Reports no additional complaints GI Reports no additional complaints Reports no additional complaints Musc Reports no additional complaints and Reports other (pain from laceration distal right thumb) Skin/Breast Reports new lesions and Reports non-healing lesions Neuro Reports no additional complaints Psych Reports no additional complaints Abdullahi/Lymph Reports no additional complaints Physical Exam Vital Signs: Last Vital Signs Temp 97.7 F 09/14/24 12:48 Pulse 50 09/14/24 12:48 BP 120/72 09/14/24 12:48 Pulse Ox 100 09/14/24 12:48 Oxygen Delivery Method Room Air 09/14/24 12:48 BMI result Body Mass Index 19.3 Const General: cooperative, healthy appearing, comfortable, no acute distress, well developed, alert and awake Nutritional Appearance: average body habitus Orientation/consciousness: patient oriented x3 Limitations: no limitations Skin Other: Laceration distal right thumb with irregular borders, adipose tissue revealed, no evidence of a retained foreign body, no involvement of the nail, no purulence, however there is adjacent macular erythema extending to correction down the length of the nail of the right 1st digit. Neuro Other: Sensation intact to light touch distal right thumb and throughout right hand. General: patient oriented x3 Extrem Other: ROM intact all digits of the right hand without limitation. Psych Appearance: grossly normal Mental Status: mental status grossly normal Insight: Good insight present (Psych) Judgement: Good judgement present (Psych) Assessment & Plan Assessment & Plan (1) Laceration of right thumb: Comment: Laceration is cleansed with povidone and saline water. Lesion will be dressed with nonstick sterile dressing and Kerlix. Code(s): S61.011A - Laceration without foreign body of right thumb without damage to nail, initial encounter Category: Medical Qualifiers: Encounter type: initial encounter Damage to nail status: without damage Foreign body presence: without foreign body Qualified Code(s): S61.011A - Laceration without foreign body of right thumb without damage to nail, initial encounter Plan: Keflex 500 mg t.i.d. x7 days. Localized wound care with bacitracin twice daily. Medications: New cephalexin 500 mg PO Q8H 21 caps 0RF Coding Level of Care Code Est Pt Level 3 (83590) Diagnoses Laceration of right thumb without foreign body without damage to nail, initial encounter S61.011A Encounter type: initial encounter Damage to nail status: without damage Foreign body presence: without foreign body
== END 2024-09-14 13:45 | disposition home or self-care (01) ==
PROVIDERS: PCP Internal Medicine; Visit Provider Physician Assistant
DX: S61.011A Laceration without foreign body of right thumb without damage to nail, initial encounter (principal)

== ENCOUNTER → 2024-09-14 12:44 | Outpatient (BNVA) | payer MEDICARE, SELFPAY | PROVIDERS: PCP Internal Medicine; Visit Provider Physician Assistant | DX: S61.011A Laceration without foreign body of right thumb without damage to nail, initial encounter (principal) | CPT/HCPCS: 99212 ==

== ENCOUNTER 2024-09-21 13:47 | Outpatient (AMB) | payer MEDICARE, SELFPAY ==
[2024-09-21 13:54] VITALS: BP 118/72; PULSE 47; RESP 16; TEMP 36.8; O2SAT 100; BMI 19.3
--- NOTE | 2024-09-21 13:54 | MHC.PC.OV ---
Vital Signs 09/21/24 13:54 Height 5 ft 8 in Weight 127 lb BMI 19.3 BP 118/72 Blood Pressure Location Lt brachial Position Sitting Respiration 16 Pulse 47 L Pulse Source Pulse Oximeter Temp 98.2 F Temp Source Oral Pulse Oximetry (%) 100 Intake Visit Reasons: Follow up after abnormal EKG Intake Note: Pt is here today for a follow up viist after being seen by Oncologist-Sculpture Conservator at [facility] and had abnormal EKG. Allergies No Known Allergies [No Known Allergies*] Allergy (Verified 09/14/24 12:49) Tobacco use date assessed: 09/21/24 Dental Screening Dental Screen Date: 07/27/24 HPI Follow up after abnormal EKG HPI Details Patient presents to evaluate for asymptomatic bradyarrhythmia noticed during the infusion for prostate CA. Patient denies chest pain shortness or breath palpitations loss of consciousness lightheadedness or dizziness. [facility] Medical History DM type 2 (diabetes mellitus, type 2) Annual physical exam Prostate CA Paget's disease Family History Father No problems noted. Mother No problems noted. Social History Housing: House Alcohol intake: current Alcohol intake frequency: holidays/special occasions only Patient Tobacco Use Status: Never used Tobacco e-Cigarette/Vaping Use: Never Used Second Hand Smoke Exposure: No service: Yes Current occupational status: retired Current occupational exposures/hazards: No Cognitive needs: No Hearing needs: No Vision needs: Yes Questionnaire PHQ-9 Over the last 2 weeks, how often have you been bothered by any of the following problems? 1. Little interest or pleasure in doing things: more than half the days 2. Feeling down, depressed, or hopeless: several days 3. Trouble falling or staying asleep, or sleeping too much: more than half the days 4. Feeling tired or having little energy: nearly every day 5. Poor appetite or overeating: more than half the days 6. Feeling bad about yourself - or that you are a failure or have let yourself or your family down: not at all 7. Trouble concentrating on things, such as reading the newspaper or watching television: not at all 8. Moving or speaking so slowly that other people could have noticed. Or the opposite - being so fidgety or restless that you have been moving around a lot more than usual: not at all 9. Thoughts that you would be better off or of hurting yourself in some way: not at all Total score: 10 Depression Screening Interpretation: Positive (Patient not interested in taking medications or seeing a counselor) Depression Screening Follow-up: Existing condition Depression Screening Done: Yes 64382 - PHQ-9 Billing: Yes Source: Developed by Drs. David Ram, Niru Krueger, Gurwinder Fernandes and colleagues, with an educational lacy from [employer]. Thrive Questionnaire Date Thrive assessed: 07/27/24 I am a: Patient What is your living situation today?: I have a steady place to live Within the past 12 months, did the food you bought not last and you didn't have the money to get more?: Never true Within the past 12 months, did you worry whether your food would run out before you got money to buy more?: I choose not to answer this question Do you have trouble paying for medicines?: No Do you have trouble getting transportation to medical appointments?: No Do you have trouble paying your heating and electricity bill?: No Do you have trouble taking care of your child, family member or friend?: No Do you have trouble with day-to-day activities such as bathing, preparing meals, shopping, managing finances, etc.?: No Are you currently unemployed and looking for a job?: No Are you interested in more education?: No Please select the resources that you would like help with: None Currently or been in a relationship where the following occur: No concerns reported THRIVE Score: 0 AMAURY-7 AMB Questionnaire AMAURY-7 Date AMAURY - 7 assessed: 09/21/24 Feeling nervous, anxious, or on edge: 0 = Not at all Not being able to stop or control worryin = Not at all Worrying too much about different things: 0 = Not at all Trouble relaxin = Not at all Being so restless that it is hard to sit still: 0 = Not at all Becoming easily annoyed or irritable: 0 = Not at all Feeling afraid as if something awful might happen: 0 = Not at all Total AMAURY-7 score (0-4 normal; 5-9 mild; 10-14 moderate; 15-21 severe): 0 Source: Developed by Drs. David Ram, Niru Krueger, Gurwinder Fernandes and colleagues, with an educational lacy from [employer]. AMAURY-7 Assessment Billing AMAURY-7 Assessment Tool: AMAURY-7 Assessment 46280 Review of Systems Const All systems reviewed & are unremarkable except as noted in HPI and below Eyes Reports no additional complaints ENT Reports no additional complaints Card Reports no additional complaints Resp Reports no additional complaints GI Reports no additional complaints Reports no additional complaints Physical exam (Primary Care) Vital Signs: Last Vital Signs Temp 98.2 F 09/21/24 13:54 Pulse 47 L 09/21/24 13:54 Resp 16 09/21/24 13:54 BP 118/72 09/21/24 13:54 Pulse Ox 100 09/21/24 13:54 BMI result Body Mass Index 19.3 Tobacco/Smoking Status: Tobacco use Status Tobacco use date assessed 09/21/24 09/21/24 14:01 Patient Tobacco Use Status Never used Tobacco 09/21/24 14:01 e-Cigarette/Vaping Use Never Used 09/21/24 13:54 PHQ-9: PHQ-9 Score PHQ-9: Total score 10 09/21/24 14:01 Depression Screening Interpretation: Positive (Patient not interested in taking medications or seeing a counselor) Depression Screening Follow-up: Existing condition Thrive Assessment: Date of Thrive Assessment Date Thrive assessed 07/27/24 09/21/24 13:54 Currently or been in a relationship where the following occur: No concerns reported Const General: no acute distress HENMT Head: Yes normal to inspection Eyes General: appearance normal, both eyes and all related structures Neck Neck: Yes supple Resp Effort & Inspection: normal respiratory effort Auscultation: clear to auscultation bilaterally Cardio Rate: bradycardic Rhythm: abnormal rhythm with ectopic beats Heart sounds: S1 normal heart sound present and S2 normal heart sound present GI Inspection: Yes normal to inspection Palpation (GI): Soft to palpation Percussion: Yes normal to percussion Auscultation: normal bowel sounds Coding Level of Care Code Est Pt Level 4 (63542) Diagnoses Bradyarrhythmia I49.8 Prostate CA C61 Diabetes mellitus E11.9 Additional Codes AMAURY-7 Assessment Billing - AMAURY-7 Assessment Tool: AMAURY-7 Assessment 51161 ([id number]) PHQ-9 - 65454 - PHQ-9 Billing: Yes ([id number]) Assessment & Plan Assessment & Plan (1) Bradyarrhythmia: Code(s): I49.8 - Other specified cardiac arrhythmias Category: Medical Plan: For asymptomatic by the arrhythmia obtain Holter and echocardiogram (2) Prostate CA: Comment: by Bx 2015, txd ADT Dr Mackenzie, Dr. Aidan Méndez, started RTx 2019 Code(s): C61 - Malignant neoplasm of prostate Category: Medical Plan: Follow-up with urology and oncology (3) Diabetes mellitus: Code(s): E11.9 - Type 2 diabetes mellitus without complications Category: Medical Plan: Continue metformin and ADA diet Orders: Orders ECG holter monitor 48 hour Today I49.8 - Other specified cardiac arrhythmias CA echo transthoracic complete Today I49.8 - Other specified cardiac arrhythmias
--- OUTSIDE RECORDS SUMMARY | 2024-09-21 17:06 | XMS_ITS | Clinical Summary ---
Author Organization [facility] Address [address] [place] [address] Phone Care Team Providers Care Waistline Joiner Overlock Name Role Phone Emily Irvin MD Primary Care Provider [phone] Allergies Active Allergy Reactions Criticality Noted Date Comments Other 06/16/2024 Seasonal Medications calcium carbonate (CALCIUM 500 ORAL) Take by [...] 10.8 mg Active darolutamide (NUBEQA) 300 mg tabletIndicatio ns:Prostate cancer (CMS/HCC) Take 2 tablets (600 mg total) by mouth 2 (two) times a day 120 tablet 11 4 Active Farxiga 5 mg tablet Take 1 tablet (5 mg total) by mouth 1 (one) time each day. 4 Active fluticasone propionate (FLONASE) 50 mcg/actuation nasal spray Administer 1 spray into each nostril if needed. Active Active Problems Problem Noted Date Diagnosed Date Prostate cancer 11/08/2017 Encounters Date Type Department Care Team Description 09/16/2024 10:26 AM EDT - 09/16/2024 11:59 PM EDT Hospital Encounter [facility] Infusion [facility] [address] [place] [phone] Juan Bermuedz MD Prostate cancer ([facility]) (Primary Dx) Discharge Disposition: Home or Self Care 09/16/2024 10:00 AM EDT Office Visit [facility] Hematology Oncology [address] [place] [phone] Juan Bermudez MD Prostate cancer ([facility]) (Primary Dx) 09/16/2024 Telephone [facility] Hematology Oncology [address] [place] [phone] Alma Delia Cano MA Abnormal ECG from Last 3 Months Surgical History Surgery Date Site/Laterality Comments APPENDECTOMY PROCEDURE:APPENDECTOMY OTHER SURGICAL HISTORY PROCEDURE:spinal repair Medical History Medical History Date Comments Prostate cancer ([facility]) DX:Pro state cancer ([facility]) Hypertension DX:Hypertension 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 Diabetes mellitus ([facility]) DX:D iabetes mellitus ([facility]) Vitamin D deficiency DX:Vitamin D deficiency Iron deficiency DX:Iron deficien cy Social History Tobacco Use Types Packs/Day Years Used Date Smoking Tobacco: Former Cigars Smokeless Tobacco: Never Tobacco Cessation:Counseling Given: Not Answered Alcohol Use Standard Drinks/Week Comments Yes 0 (1 standard drink = 0.6 oz pur e alcohol) Social Sex and Gender Information Value Date Recorded Sex Assigned at Male 09/16/2024 10:25 AM EDT Legal Sex Male 4:14 AM EST Gender Identity Male 09/16/2024 10:25 AM EDT Sexual Orientation Straight 09/16/2024 10 :25 AM EDT Obstetrics History Last Filed Vital Signs Vital Sign Reading Time Taken Comments Blood Pressure 145/41 09/16/2024 10:46 AM EDT Pulse 55 09/16/2024 10:48 AM EDT Temperature 35.9 ??C (96.6 ??F) 09/16/2024 10:04 AM E DT Respiratory Rate 18 09/16/2024 10:48 AM EDT Oxygen Saturation 100% 09/16/2024 10:46 AM EDT Inhaled Oxygen Concentration - - Weight 56.7 kg (125 lb) 09/16/2024 10:04 AM EDT Height 172.7 cm (5' 8 ) 03/17/2024 10:17 AM EDT Body Mass Index 19.01 03/17/2024 10:17 AM EDT Plan of Treatment Upcoming Encounters Date Type Department Care Team (Late st Contact Info) Description 12/16/2024 10:00 AM EDT Office Visit [facility] Hematology Oncology [address] [place] [phone] Juan Bermudez MD [address] [place] [phone] 12/16/2024 10:30 AM EDT Appointment [facility] Infusion Center [address] [phone] Health Maintenance Due Date Last Done Comments Zoster Vaccines (1 of 2) 06/25/2007 04/30/2007 RSV Immunization Patients 60+ Years Old (1 - 1-dose 75+ series) 2010 Cholesterol Screening (Lipid Panel) 06/06/2022 Depression Screening 06/06/2022 Medicare Annual Wellness Visit 06/06/2022 Social Influencers of Health Screening 06/06/2022 COVID-19 Vaccine ( season) 2024 03/24/2023, 06/14/2022, 04/03/2021, Additional history exists Falls Risk Assessment 09/16/2025 09/16/2024 DTaP,Tdap,and Td Vaccines (4 - Td or Tdap) 01/15/2033 01/15/2023, 09/28/2014, 05/16/2003 Influenza Vaccine Completed 03/26/2024, , 04/04/2022, Additional history exists Pneumococcal Vaccine: 50+ Years Completed 07/27/2024, 09/21/2014, 04/30/2013 HIB Vaccines Aged Out No longer eligi [...] patient's age to complete this topic Meningococcal B Vacine Aged Out No lo nger eligible based on patient's age to complete this topic RSV Immunization Patients Under 20 months Aged Out No longer eligible based on patient's age to complete this topic Varicella Vaccines Aged Out No longer eligible based on patient's age to complete this topic Procedures Procedure Name Priority Date/Time Associated Diagnosis Comments ECG 12-LEAD STAT 09/16/2024 10:52 AM EDT CBC WITH AUTO DIFFERENTIAL Routine 09/13/2024 11:34 AM EDT Prostate cancer (CMS/HCC) PROSTATE SPECIFIC ANTIGEN DIAGNOSTIC Routine 09/13/2024 11:34 AM EDT Prostate cancer (CMS/HCC) COMPREHENSIVE METABOLIC PANEL Routine 09/13/2024 11:34 AM EDT Prostate cancer (CMS/HCC) CBC AND DIFFERENTIAL Routine 09/13/2024 11:34 AM EDT Prostate cancer (CMS/HCC) from Last 3 Months Results * ECG 12 lead (09/16/2024 10:52 AM EDT) Ventricular Rate ECG 54 BPM GEMUSE Atrial Rate 54 BPM GEMUSE P-R Interval 154 ms GEMUSE QRS Duration 84 ms GEMUSE Q-T Interval 420 ms GEMUSE QTc 398 ms GEMUSE P Wave [place] 71 degrees GEMUSE R [place] 48 degrees GEMUSE T [place] 35 degrees GEMUSE ECG Interpretation Sinus bradycardia with blocked PACs Septal infarct , age undetermined Abnormal ECG No previous ECGs available Confirmed by Eusebio IBARRA JOHN ([id number]) on 09/16/2024 8:21:49 PM GEMUSE 09/16/2024 10:5 2 AM EDT 09/16/2024 8:21 PM EDT Juan Bermudez MD ECG ORDERABLES Final Resul t GEMUSE * (ABNORMAL) Prostate specific antigen diagnostic (09/13/2024 11:34 AM EDT) Pathologist [facility] PSA 7.77(H) 0.00 - 4.00 ng/mL LAB CHEMISTRY METHOD 09/13/2024 4:02 PM EDT [facility] Blood Venous blood specimen / Unknown Venipuncture / Unknown 09/13/2024 11:34 AM EDT 09/13/2024 1:36 PM EDT Narrative [facility] - 09/13/2024 4:02 PM EDT The Siemens Advia Centaur Chemiluminescent Immunoassay is used. Results obtained with different assay methods or kits cannot be used interchangeably. Results cannot be interpreted as absolute evidence of the presence or absence of malignant disease. Juan Bermudez MD LAB BLOOD ORDERABLES Final Result Performing Organization Address City/[facility]/ZIP Co de Phone Number [facility] [address] [place] [address], * (ABNORMAL) CBC auto differential (09/13/2024 11:34 AM EDT) Pathologist [facility] WBC 6.2 4.8 - 10.8 K/mcL LAB HEMETOLOGY METHOD 09/13/2024 1:50 PM EDT [facility] RBC 4.40(L) 4.50 - 5.50 M/mcL LAB HEMETOLOGY METHOD 09/13/2024 1:50 PM EDT [facility] Hemoglobin 12.7(L) 13.5 - 17.5 g/dL LAB HEMETOLOGY METHOD 09/13/2024 1:50 PM EDT [facility] Hematocrit 39.5(L) 42.0 - 54.0 % LAB HEMETOLOGY METHOD 09/13/2024 1:50 PM EDT [facility] MCV 90.8 79.0 - 98.0 FL LAB HEMETOLOGY METHOD 09/13/2024 1:50 PM EDT [facility] MCH 29.2 27.0 - 32.0 pcg LAB HEMETOLOGY METHOD 09/13/2024 1:50 PM EDT [facility] MCHC 32.2 32.0 - 37.0 g/dL LAB HEMETOLOGY METHOD 09/13/2024 1:50 PM EDT [facility] RDW 15.9(H) 11.0 - 15.0 % LAB HEMETOLOGY METHOD 09/13/2024 1:50 PM EDT [facility] Platelets 262 130 - 400 K/mcL LAB HEMETOLOGY METHOD 09/13/2024 1:50 PM EDT [facility] MPV 10.3 7.0 - 11.0 FL LAB HEMETOLOGY METHOD 09/13/2024 1:50 PM EDT [facility] NRBC 0.0 <1.0 % LAB HEMETOLOGY METHOD 09/13/2024 1:50 PM EDT [facility] NRBC Absolute 0.00 <0.10 K/mcL LAB HEMETOLOGY METHOD 09/13/2024 1:50 PM EDT [facility] Neutrophils Relative 62.4 % LAB HEMETOLOGY METHOD 09/13/2024 1:50 PM EDT [facility] Lymphocytes Relative 23.6 % LAB HEMETOLOGY METHOD 09/13/2024 1:50 PM EDT [facility] Monocytes Relative 10.3 % LAB HEMETOLOGY METHOD 09/13/2024 1:50 PM EDT [facility] Eosinophils Relative 2.9 % LAB HEMETOLOGY METHOD 09/13/2024 1:50 PM EDT [facility] Basophils Relative 0.5 % LAB HEMETOLOGY METHOD 09/13/2024 1:50 PM EDT [facility] Immature Granulocytes Relative 0.3 % LAB HEMETOLOGY METHOD 09/13/2024 1:50 PM EDT [facility] Neutrophils Absolute 3.90 1.50 - 7.00 K/mcL LAB HEMETOLOGY METHOD 09/13/2024 1:50 PM EDT [facility] Lymphocytes Absolute 1.47 1.00 - 5.00 K/mcL LAB HEMETOLOGY METHOD 09/13/2024 1:50 PM EDT [facility] Monocytes Absolute 0.64 0.20 - 1.00 K/mcL LAB HEMETOLOGY METHOD 09/13/2024 1:50 PM EDT [facility] Eosinophils Absolute 0.18 0.00 - 0.50 K/mcL LAB HEMETOLOGY METHOD 09/13/2024 1:50 PM EDT [facility] Basophils Absolute 0.03 0.00 - 0.20 K/mcL LAB HEMETOLOGY METHOD 09/13/2024 1:50 PM EDT [facility] Immature Granulocytes Absolute 0.02 0.00 - 0.03 K/mcL LAB HEMETOLOGY METHOD 09/13/2024 1:50 PM EDT [facility] Blood Venous blood specimen / Unknown Venipuncture / Unknown 09/13/2024 11:34 AM EDT 09/13/2024 1:36 PM EDT us Juan Bermudez MD LAB BLOOD ORDERABLES Final Result [facility] [address] [place] [address], * (ABNORMAL) Comprehensive metabolic panel (09/13/2024 11:34 AM EDT) Sodium 134 133 - 145 mmol/L LAB CHEMISTRY METHOD 09/13/2024 4:21 PM [facility] Potassium 4.3 3.5 - 5.5 mmol/L LAB CHEMISTRY METHOD 09/13/2024 4:21 PM [facility] Chloride 98 96 - 110 mmol/L LAB CHEMISTRY METHOD 09/13/2024 4:21 PM [facility] CO2 30 21 - 32 mmol/L LAB CHEMISTRY METHOD 09/13/2024 4:21 PM [facility] Anion Gap 6 3 - 11 LAB CHEMISTRY METHOD 09/13/2024 4:21 PM [facility] Glucose 142(H) 70 - 100 mg/dL LAB CHEMISTRY METHOD 09/13/2024 4:21 PM [facility] BUN 18 5 - 25 mg/dL LAB CHEMISTRY METHOD 09/13/2024 4:21 PM [facility] Creatinine 0.78 0.70 - 1.30 mg/dL LAB CHEMISTRY METHOD 09/13/2024 4:21 PM [facility] eGFR 85 >=60 mL/min/1. 73m2 LAB CHEMISTRY METHOD 09/13/2024 4:21 PM [facility] Comment:Calculation based on the??Chronic Kidney Disease Epidemiology Collaboration (CKD-EPI) equation refit??without adjustment for race. BUN/Creatinine Ratio 23.1 LAB CHEMISTRY METHOD 09/13/2024 4:21 PM [facility] Calcium 9.7 8.5 - 10.5 mg/dL LAB CHEMISTRY METHOD 09/13/2024 4:21 PM EDT [facility] AST (SGOT) 9(L) 10 - 42 unit/L LAB CHEMISTRY METHOD 09/13/2024 4:21 PM EDT [facility] ALT (SGPT) 15 10 - 60 unit/L LAB CHEMISTRY METHOD 09/13/2024 4:21 PM EDT [facility] Alkaline Phosphatase 59 42 - 121 unit/L LAB CHEMISTRY METHOD 09/13/2024 4:21 PM EDT [facility] Total Protein 6.8 6.0 - 8.0 g/dL LAB CHEMISTRY METHOD 09/13/2024 4:21 PM EDT [facility] Albumin 3.7 3.2 - 5.0 g/dL LAB CHEMISTRY METHOD 09/13/2024 4:21 PM EDT [facility] Total Bilirubin 0.6 0.0 - 1.4 mg/dL LAB CHEMISTRY METHOD 09/13/2024 4:21 PM EDT [facility] Blood Venous blood specimen / Unknown Venipuncture / Unknown 09/13/2024 11:34 AM EDT 09/13/2024 1:36 PM EDT Juan Bermudez MD LAB BLOOD ORDERABLES Final Result [facility] [address] [place] [address], from Last 3 Months Insurance [facility] MEDICARE ADVANTAGE Care Teams Waistline Joiner Overlock Relationship Specialty Start Date End Date Emily Irvin MD [address] [place] [phone] PCP - General Contact Lens Assistant 08/24/19
--- OUTSIDE RECORDS SUMMARY | 2024-09-21 17:06 | XMS_ITS | Encounter Summary ---
Author Organization [facility] Address [address] [place] [address] Care Team Providers Care Wafer Abrading Machine Tender Name Role Phone Emily Irvin MD Primary Care Provider [phone] Reason for Visit * Reason Comments Follow-up Encounter Details Date Type Department Care Team (Late st Contact Info) Description 09/16/2024 10:00 AM EDT Office Visit [facility] Hematology Oncology [address] [place] [phone] Juan Bermudez MD [address] [place] [address] Prostate cancer (CMS/HCC) (Primary Dx) Social History Tobacco Use Types Packs/Day Years Used Date Smoking Tobacco: Former Cigars Smokeless Tobacco: Never Alcohol Use Standard Drinks/Week Comments Yes 0 (1 standard drink = 0.6 oz pur e alcohol) Social Sex and Gender Information Value Date Recorded Sex Assigned at Male 09/16/2024 10:25 AM EDT Legal Sex Male 4:14 AM EST Gender Identity Male 09/16/2024 10:25 AM EDT Sexual Orientation Straight 09/16/2024 10 :25 AM EDT documented as of this encounter Last Filed Vital Signs Vital Sign Reading Time Taken Comments Blood Pressure 145/41 09/16/2024 10:04 AM EDT Pulse - - Temperature 35.9 ??C (96.6 ??F) 09/16/2024 10:04 AM E DT Respiratory Rate - - Oxygen Saturation - - Inhaled Oxygen Concentration - - Weight 56.7 kg (125 lb) 09/16/2024 10:04 AM EDT Height - - Body Mass Index 19.01 03/17/2024 10:17 AM EDT documented in this encounter Progress Notes * Juan Bermudez MD - 09/16/2024 10:00 AM EDT Diagnosis/treatment: Prostate cancer, diagnosed in 2012. He started ADT in late 03/2018. He completed radiation to the prostate bed to 7000 cGy on 07/26/2020. He started Nubeqa in early 02/2022. Interval history: The patient is an 89-year-old gentleman with good independent functioning who initially presented in 2012 with an elevated PSA. He underwent prostatic biopsies in [address] Lino and the pathology revealed a prostatic adenocarcinoma. We do not have the pathology report for review today. The patien t does not recall the Mckenzie score. He opted for observation. The PSA was noted to rise gradually from 1340-5520. However, the PSA ekaterina from 16 in 03/2017 to 30 in 07/2017. The patient was started on finasteride for BPH with urinary symptoms in early 2017. The PSA decreased modestly to 22.1 on 09/29/2017. The PSA was 24.5 on 11/06/2017. The PSA was 26.7 on 01/27/2018. The PSA was 33.7 on 04/27/2018. A pelvic CT without IV or oral contrast on 10/21/2017 showed a heterogeneous prostate which bulges into the base of the urinary bladder.. There were high density ill-defined nodules in the left lateral aspect of the prostate. There was no bulky pelvic lymphadenopathy. 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 A bone scan on 10/21/2017 showed no evidence of metastatic disease. He tolerated ADT reasonably well. He reported hot flashes and sweats, approximately 3 per day. He reported a.m. neck arthralgias, relieved by activity. The PSA dropped to 3.8 on 07/27/2018. The PSA decreased to 1.0 on 11/20/2018. The PSA was stable at1.2 on 02/18/2019. The PSA ekaterina slightly to 1.4 on 05/20/2019. The PSA ekaterina slightly to 1.7 on 08/20/2019. The PSA ekaterina to 2.1 on 11/19/2019. The PSA ekaterina to 2.8 on 02/24/2020. A bone scan on 03/29/2020 was unremarkable. An A/P CT with IV and oral contrast on 04/06/2020 was unremarkable. A pelvic MRI on 05/18/2020 showed a 1.4 cm right prostatic lobe nodule and was otherwise unremarkable. The PSA ekaterina to 3.3 on 05/18/2020. He completed radiation to the prostate bed to 7000 cGy on 07/26/2020. He had difficulty with urinaryfrequency and urgency and diarrhea and fecal urgency, which resolved. The PSA was 2.7 on 08/17/2020. The PSA was 2.2 on 11/13/2020. The PSA ekaterina to 4.0 on 02/13/2021. The PSA ekaterina to 4.5 on 05/17/2021. The PSA was stable at 3.2 on 08/17/2021. The PSA was stable at 3.7 on 11/19/2021. The PSA ekaterina to 5.8 on 02/15/2022. A bone scan on 02/27/2022 was unremarkable. A C/A/P CT with IV and oral contrast on 02/27/2022 showed inflammatory changes in the right lower lobe with a tree-in-bud airspace opacity and nodules measuring up to 0.9 cm and was otherwise unremarkable. He denies fevers, cough, sputum, or dyspnea on exertion. He is tolerating ADT/Nubeqa well without side effects. The PSA decreased to 2.7 on 06/17/2022. The PSA decreased to 2.0 on 09/12/2022. The PSA was stable at 1.9 on 12/13/2022. The PSA ekaterina to 2.7 on 03/12/2023. The PSA ekaterina to 3.1 on 06/12/2023. The PSA was stable at 2.6 on 09/12/2023. The PSA ekaterina to 3.8 on 12/12/2023. The PSA ekaterina to 5.2 and 03/12/2024. The PSA ekaterina to 6.5 on 06/07/2024. The PSA ekaterina to 7.8 on 09/13/2024. He denies bone pain. He reports nocturia every 2 hours. He denies headaches or visual changes. He denies cough, hemoptysis, or dyspnea on exertion. He denies nausea or abdominal pain. He reports an intact appetite and stable weight. He has a history of diabetes. He has no peripheral neuropathic symptoms. Past medical history: B12 deficiency, diabetes mellitus, iron deficiency anemia, BPH. Current medications: Finasteride, Flomax, Aspirin, calcium, ferrous sulfate, Vitamin B12 orally, vitamin D3. Allergies: No known drug allergies. Family history: His grandparents, parents, 2 brothers, 1 sister, and 3 sons have no history of cancer. Social history: The patient is retired and formerly worked as a lithographer. He is a former smoker who smoked cigars and quit at age 32. He drinks alcohol socially. He exercises on on a stationary bike for 45 minutes 5 times per week. He has been for 53 years. He has 3 sons. He has no grandchildren. Review of systems: The remainder of a 10 point review of systems was unremarkable. Physical examination: HEENT: Sclerae anicteric, normal oropharyngeal membrane. Neck: No lymphadenopathy. Lungs: Clear to auscultation. Heart: No murmurs. Abdomen: Soft, nontender, no organomegaly or masses. Extremities: No edema. Skin: No rash. Neurologic: Normal gait. Clinical summary: The patient is a 89-year-old gentleman with good independent functioning who presented in 2012 witha prostate cancer. He opted for observation. He had a rising PSA starting in late 2016. The patient did not have clear evidence of metastatic disease on imaging studies. A pelvic CT in 09/2017 showed left hemipelvis sclerosis, consistent with Paget's disease. A bone scan in 09/2017 showedno evidence of metastatic disease. Given the significant rise in the PSA, it is unlikely that external beam radiation will provide significant benefit to control his disease burden. We could consider external beam radiation patient develops more significant local symptoms. I recommended GnRH agonist therapy. I discussed potential adverse effects, including fatigue, mild generalized weakness, hot flashes, arthralgias, loss of libido, an exacerbation of diabetes, loss ofbone density, and cardiac events. The patient had concerns about possible exacerbation of diabetes and cardiac events. He tolerated ADT well despite hot flashes and mild arthralgias. The PSA initially dropped sharply on therapy. The PSA gradually trended upward. A bone scan in late 02/2020 was unremarkable. An A/P CT in early 03/2020 was unremarkable. A pelvic MRI in early 04/2020 showed a 1.4 cm right prostatic lobe nodule and was otherwise unremarkable. I referred him to Radiation Oncology for consideration of radiation to the prostate. He completed radiation to the prostate bed to 7000 cGy on 07/26/2020. He tolerated treatment reasonably well despite mild urinary and bowel side effects. The PSA initially trended downward, but ekaterina in 01/2021. A bone scan in late 01/2022 was unremarkable. A C/A/P CT in late 01/2022 was unremarkable apart from inflammatory changes in the right lower lung lobe. We started Nubeqa. I discussed potential adverse effects, including fatigue, asthenia, and LFT abnormalities. He is tolerating ADT/Nubeqa well without side effects. The PSA initially trended down on therapy, but ekaterina in 02/2023. We will continue ADT/Nubeqa until more significant biochemical progression. 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 He is tolerating ADT/Nubeqa well without side effects. The PSA has gradually risen since 02/2023. We will continue ADT/Nubeqa until more significant biochemical progression. We will consider Pluvicto in the next line of therapy. This encounter is of moderate risk. 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 He is currently receiving anticancer therapy with ADT/Nubeqa. documented in this encounter Plan of Treatment Upcoming Encounters Date Type Department Care Team (Late st Contact Info) Description 12/16/2024 10:00 AM EDT Office Visit [facility] Hematology Oncology [address] [place] [phone] Juan Bermudez MD [address] [place] [address] 12/16/2024 10:30 AM EDT Appointment [facility] [address] [facility] 2nd [place] [phone] documented as of this encounter Visit Diagnoses Diagnosis Prostate cancer (CMS/HCC)- Primary Malignant neoplasm of prostate documented in this encounter Care Teams Wafer Abrading Machine Tender Relationship Specialty Start Date End Date Emily Irvin MD [address] [place] [phone] PCP - General Mental Health Orderly 08/24/19 documented as of this encounter
--- OUTSIDE RECORDS SUMMARY | 2024-09-21 17:06 | XMS_ITS ---
Author Organization [facility] Address [address] [place] [phone] Phone Care Team Providers Care Garment Folder Name Role Phone Emily Irvin MD Primary Care Provider Active Problems Problem Noted Date Diagnosed Date Prostate cancer 11/08/2017 Current Oncology Plans GOSERELIN ( ZOLADEX ) 10.8 MG EVERY 12 WEEKS* Plan Start Date:06/16/2024 Plan Provider:Juan Bermudez MD Linked Problems Prostate cancer (CMS/HCC) Treatment Medications goserelin (ZOLADEX) Past Plans No past plan information found. Radiation Treatments * No radiation treatments are documented for this patient in [facility]. Treatments may have been administered in another system.
--- OUTSIDE RECORDS SUMMARY | 2024-09-21 17:07 | XMS_ITS ---
Author Organization [facility] Address [address] [place] [address] Care Team Providers Care Branch Service Leader Name Role Phone Emily Irvin MD Primary Care Provider [phone] Active Problems Problem Noted Date Diagnosed Date Prostate cancer 11/08/2017 Current Oncology Plans [facility] GOSERELIN 10.8MG (ZOLADEX)* Plan Start Date:12/16/2023 Plan Provider:Juan Bermudez MD Linked Problems Prostate cancer (HCC) Treatment Medications goserelin (ZOLADEX) Past Plans ONCOLOGY INFUSION THERAPY Plan Name Start Date Discontinue Date Treatment Medications Discontinue Reason Plan Provider [facility] GOSERELIN 10.8MG (ZOLADEX) 12/17/2022 12/16/2023 goserelin (ZOLADEX) Therapy Complete [facility] GOSEREL[facility] 10.8MG (ZOLADEX) 01/03/2022 12/16/2022 goserelin (ZOLADEX) Therapy Complete Juan Bermudez MD Radiation Treatments * No radiation treatments are documented for this patient in [facility]. Treatments may have been administered in another system.
--- OUTSIDE RECORDS SUMMARY | 2024-09-21 17:07 | XMS_ITS | Encounter Summary ---
Author Organization [facility] Address [address] [place] [address] Care Team Providers Care Poultry Slaughterer Name Role Phone Emily Irvin MD Primary Care Provider [phone] Reason for Visit * Reason Onset Date Comments Abnormal ECG 09/16/2024 Encounter Details Date Type Department Care Team (Late st Contact Info) Description 09/16/2024 Telephone [facility] Hematology Oncology [address] [place] [address] Alma Delia Cano MA Abnormal ECG Social History Tobacco Use Types Packs/Day Years [...] AM EDT documented as of this encounter Progress Notes * Alma Delia Cano MA - 09/16/2024 11:35 AM EDT Pt was in office today , while in infusion pt had EKG performed, results were abnormal. Per Dr Bermudez he wants Pt to see PCP within [address] to [address] Morrow's ofice requesting a consult within 1 week, The office will be reaching out to pt to book an appointment. Pt aware he will be receiving a call to schedule. documented in this encounter Plan of Treatment Upcoming Encounters Date Type Department Care Team (Late st Contact Info) Description 12/16/2024 10:00 AM EDT Office Visit [facility] Hematology Oncology [address] [place] [phone] Juan Bermudez MD [address] [place] [phone] 12/16/2024 10:30 AM EDT Appointment [facility] [address] [phone] documented as of this encounter Visit Diagnoses Not on filedocumented in this encounter Care Teams Poultry Slaughterer Relationship Specialty Start Date End Date Emily Irvin MD [address] [place] [phone] PCP - General Fur Sewer 08/24/19 documented as of this encounter
--- OUTSIDE RECORDS SUMMARY | 2024-09-21 17:07 | XMS_ITS | Encounter Summary ---
Author Organization [facility] Address [address] [place] [address] Care Team Providers Care Color Finisher Name Role Phone Emily Irvin MD Primary Care Provider [phone] Reason for Visit * Reason Comments Injections Zoladex injection * Episode Based Medications (Routine) - Authorized Specialty Diagnoses / Procedures Referred By Contsumanth t Referred To Contact Diagnoses Prostate cancer (CMS/HCC) Juan Bermudez MD [address] [place] [phone] Phone: tel: fax: [address] [address] Phone: tel: fax: Referral ID Status Reason Start Date Expiration Date V isits Requested Visits Authorized [id number] Authorized 04/29/2024 04/29/2025 1 2 Encounter Details Date Type Department Care Team (Latest Contact Info) Description 09/16/2024 10:26 AM EDT - 09/16/2024 11:59 PM EDT Hospital Encounter [address] [address] Juan Bermudez MD [address] [place] [phone] Prostate cancer (CMS/HCC) (Primary Dx) Discharge Disposition: Home or Self Care Social History Tobacco Use Types Packs/Day Years [...] Pulse 55 09/16/2024 10:48 AM EDT Temperature - - Respiratory Rate 18 09/16/2024 10:48 AM EDT Oxygen Saturation 100% 09/16/2024 10:46 AM EDT Inhaled Oxygen Concentration - - Weight - - Height - - Body Mass Index - - documented in this encounter Medications at Time of Discharge calcium carbonate (CALCIUM 500 ORAL) Take by mouth daily. cholecalciferol (VITAMIN D-3) 50 mcg (2,000 unit) tablet Take by mouth daily. darolutamide (NUBEQA) 300 mg tabletIndication s:Prostate cancer (CMS/HCC) Take 2 tablets (600 mg total) by mouth 2 (two) times a day 120 tablet 11 05/17/2024 Farxiga 5 mg tablet Take 1 tablet (5 mg total) by mouth 1 (one) time each day. 04/19/2024 ferrous sulfate 325 mg (65 mg elemental iron) tablet Take 1 tablet (325 mg total) by mouth every morning with breakfast. finasteride (PROSCAR) 5 mg tablet Take 1 tablet (5 mg total) by mouth daily. fluticasone propionate (FLONASE) 50 mcg/actuation nasal spray Administer 1 spray into each nostril if needed. 03/12/2024 goserelin (ZOLADEX) 10.8 mg implant Ordered Dose: 10.8 mg Route: Subcutaneous Frequency: Once Admin Dose: 10.8 mg goserelin acetate (ZOLADEX SUBQ) Inject under the skin every 6 (six) months. - Subcutaneous metFORMIN (GLUCOPHAGE) 500 mg tablet Take 1 tablet (500 mg total) by mouth every morning with breakfast. 2 pills bid oxybutynin (DITROPAN) 5 mg tablet Take 1 tablet (5 mg total) by mouth 3 (three) times a day. tamsulosin (FLOMAX) 0.4 mg 24 hr capsule Take 1 capsule (0.4 mg total) by mouth daily. documented as of this encounter Discharge Disposition Disposition Code Departure Means Destination Home or Self Care documented in this encounter Progress Notes * Patricia Kauffman RN - 09/16/2024 10:30 AM EDT 1033: PT arrives this morning after MD OV for every 3 month zoladex injection. PT reports he is feeling well without acute concerns or questions. PT sts he is eating well at home, no concerns to GI nor system. PT sts his energy levels are stable too. Pts HR and O2 noted to not be completed in MDOV. HR and O2 obtained by pulse ox. O2 100% at RA although HR ranging between 36 and 55. HR by palpation feels slow and irregular, ranging from 46 to 60. PT denies CP, SOB nor dizziness. PT also denies pmhx of afib, sts doctors often tell him his HR is low and irregular. PT not on any daily BP medications. Findings reported to Dr. Bermudez who gave verbal order for an EKG. Okay to proceed with treatment otherwise. PT made aware and verbalized understanding. 1100: EKG team at chair side completing test. EKG found Sinus bradycardia with marked sinus arrythmia. (See EKG from 09/16 for more details). Copy of EKG evaluated by Dr. Bermudez who sts to have PT f/u with his PCP, no acute actions att. PT provided with copy of EKG to bring to PCP and aware he needs an apt in the next week. Niru Kohler slate worker also aware and helping with getting pcp apt. 1130: PT iced ABD injection site to help tolerate large needle. Zoladex injection administered intoLEFT lower abd, well tolerated without concerns. PT provided with next apt reminder, verbalized understanding, left unit amb, stable at D/C. documented in this encounter Plan of Treatment Upcoming Encounters Date Type Department Care Team (Late st Contact Info) Description 12/16/2024 10:00 AM EDT Office Visit [facility] Hematology Oncology [address] [place] [phone] Juan Bermudez MD [address] [place] [phone] 12/16/2024 10:30 AM EDT Appointment [facility] [address] [phone] documented as of this encounter Procedures Procedure Name Priority Date/Time Associated Diagnosis Comments ECG 12-LEAD STAT 09/16/2024 10:52 AM EDT documented in this encounter Results * ECG 12 lead (09/16/2024 10:52 AM EDT) Ventricular Rate ECG 54 BPM GEMUSE Atrial Rate 54 BPM GEMUSE P-R Interval 154 ms GEMUSE QRS Duration 84 ms GEMUSE Q-T Interval 420 ms GEMUSE QTc 398 ms GEMUSE P Wave Weiner 71 degrees GEMUSE R Weiner 48 degrees GEMUSE T Weiner 35 degrees GEMUSE ECG Interpretation Sinus bradycardia with blocked PACs Septal infarct , age undetermined Abnormal ECG No previous ECGs available Confirmed by Eusebio IBARRA JOHN ([id number]) on 09/16/2024 8:21:49 PM GEMUSE 09/16/2024 10:5 2 AM EDT 09/16/2024 8:21 PM EDT us Juan Bermudez MD ECG ORDERABLES Final Resul t GEMUSE documented in this encounter Visit Diagnoses Diagnosis Prostate cancer (CMS/HCC)- Primary Malignant neoplasm of prostate documented in this encounter Administered Medications Inactive Administered Medications - up to 3 most recent administrations Medication Order MAR Action Action Date Dose Rate Site goserelin (ZOLADEX) chemo injection 10.8 mg 10.8 mg, subcutaneous, Once, On Jacqui 09/16/24 at 1100, For 1 dose, Inject subcutaneous into the anterior abdominal wall below the navel line HAZARDOUS Drug Precautions - High Risk (Category C/NIOSH Group 1) Antineoplastic: - Double pair of ASTM standard D6978 certified chemotherapy gloves - Chemotherapy gown - Closed-System Transfer Device (CSTD) recommended - Eye protection (goggles or face shield) required only with a potential for facial contact (i.e. concern for spitting or vomiting of the dose during or after administration)Indicatio ns:Prostate cancer (CMS/HCC) Given 09/16/2024 11:19 AM EDT 10.8 mg Left Lower Abdomen documented in this encounter Orders Medications Ordered That Jaylen ht Not Have Been Administered Count Last Ordered Date First Ordered Date goserelin (ZOLADEX) chemo in jection 10.8 mg 1 09/16/2024 documented in this encounter Care Teams Color Finisher Relationship Specialty Start Date End Date Emily Irvin MD [address] [place] [phone] PCP - General Drywall Contractor 08/24/19 documented as of this encounter
--- OUTSIDE RECORDS SUMMARY | 2024-09-21 17:07 | XMS_ITS | Clinical Summary ---
Author Organization [facility] Address [address] [place] [address] Care Team Providers Care Residence Manager Name Role Phone Emily Irvin MD Primary Care Provider [phone] Allergies No known active allergies Medications Medication Sig Dispensed Refills Start Date End Date Status finasteride (PROSCAR) 5 MG tablet Take 1 tablet (5 mg total) by mouth daily. 0 Active tamsulosin (FLOMAX) 0.4 MG CAPS Take 1 capsule (0.4 mg total) by mouth daily. 0 Active aspirin EC 81 MG tablet Take 1 tablet (81 mg total) by mouth daily. 0 Active Zejlrgm-Mjinsntua-Rb tamin D (CALCIUM 500 PO) Take by [...] age to complete this topic Care Teams Residence Manager Relationship Specialty Start Date End Date Emily Irvin MD [address] [place] [phone] PCP - General School Aide 08/24/19
== END 2024-09-21 14:27 | disposition home or self-care (01) ==
LOC: HO.HMCC 13:48
PROVIDERS: PCP Internal Medicine; Visit Provider Internal Medicine
DX: I49.8 Other specified cardiac arrhythmias (principal); C61 Malignant neoplasm of prostate; E11.9 Type 2 diabetes mellitus without complications

== ENCOUNTER → 2024-09-21 13:47 | Outpatient (BNVA) | payer MEDICARE, SELFPAY | PROVIDERS: PCP Internal Medicine; Visit Provider Internal Medicine | DX: I49.8 Other specified cardiac arrhythmias (principal); C61 Malignant neoplasm of prostate; E11.9 Type 2 diabetes mellitus without complications | CPT/HCPCS: 96127; 99212 ==

== ENCOUNTER → 2024-10-11 13:46 | Outpatient (REF) | payer MEDICARE, SELFPAY ==
--- NOTE | 2024-10-11 14:04 | CA_ITS ---
Transthoracic Echocardiogram Patient (Last, First, Middle): Raymundo Ferreira L Gender: Male Date of : 1935 Age: 89 Procedure Date: 10/11/2024 Procedure Type: Transthoracic Echocardiogram Location: OP Height: 172.72 cm Weight: 58.51 kg BSA: 1.70 m2 Heart Rate: 70 bpm BP: 118 / 72 mmHg Ophthalmic Pathologist: SB Referring MD: Emily Irvin MD Manager Heavy Equipment: Adams Alvares MD Symptoms: I49.8 - Other specified cardiac arrhythmias Study Quality: Adequate ECG Rhythm: Sinus arrhythmia Conclusions: - Essentially normal study with grade 1 diastolic dysfunction which may be normal for her age Findings Left Ventricle Normal left ventricular size, thickness, and systolic function. The visually estimated ejection fraction is between 60-65%. Spectral Doppler is indicative of an impaired relaxation filling pattern. E/E prime ratio is <8, consistent with normal filling pressures. Evidence suggests grade I (mild) diastolic dysfunction. Right Ventricle Normal right ventricular cavity size and systolic function. Atria Both atria are normal in size. There is a mobile atrial septum noted. There is no evidence of interatrial shunt. Aortic Valve Normal aortic valve structure and function. There is no aortic valve stenosis. There is no aortic valve regurgitation. Mitral Valve Normal mitral valve structure and function. There is trace mitral valve regurgitation. There is no mitral valve stenosis. Pulmonic Valve The pulmonic valve was not well visualized. Tricuspid Valve Likely normal tricuspid valve structure and function. There is trace tricuspid valve regurgitation. The right ventricular systolic pressure is normal. The right ventricular systolic pressure is 29 mmHg. Normal right atrial pressure. There is no evidence of pulmonary hypertension. Great Vessels All visible segments of the aorta are normal in size. The pulmonary artery was not well visualized. There is no dilatation of the ascending aorta measuring 3.10 cm. Venous The inferior vena cava is normal in size and collapses greater than 50% with inspiration. Pericardium/Pleural There is no evidence of pericardial effusion. Prior Study Comparison No previous study in the last 5 years for comparision Measurements 2D Linear Measurements IVSd: 1.05 0.6-0.9/0.6-1.0 cm LVIDd: 4.90 3.9-5.3/4.2-5.9 cm LVIDd Index: 2.88 2.4-3.2/2.2-3.1 cm/m2 LVIDs: 3.03 2.0-3.6 cm LVPWd: 0.82 0.7-1.1 cm LA Diam: 3.50 2.7-3.8/3.0-4.0 cm LAIDs Index: 2.06 1.5-2.3 cm/m2 LV Mass: 200.49 67-162/88-224 g LV Mass Index: 117.93 43-95/49-115 g/m2 LVOT Diam: 2.30 3.0+(-)1.3 cm 2D Systolic Function EF 4C: 64.00 >55% EF 2C: 60.90 >55% EF BiP: 63.50 >55% Mitral Valve MV Pk E: 0.58 MV PK A: 0.77 MV Decel Time: 230.00 E/A: 0.70 E'Medial: 4.68 E/E' Med: 12.30 PHT: 67.00 MVA PHT: 3.28 Decel Divide: 2.50 Aortic Valve AoV Pk Haroon: 1.31 AoV Pk Grad: 7.00 PRINCE: 3.42 LVOT LVOT Pk Haroon: 1.03 LVOT Mn Haroon: 0.75 LVOT VTI: 0.23 LVOT Pk Grad: 4.00 LVOT Mn Grad: 3.00 LVOT Diam: 2.30 LVOT Area: 4.15 Diastolic Function MV Pk E: 0.58 MV Pk A: 0.77 E/A: 0.70 E'Medial: 4.68 E/E' Med: 12.30 Right Ventricle TAPSE (mm): 22.90 TVS' Haroon: 16.80 Tricuspid Valve TR Pk Haroon: 2.30 TR Pk Grad: 21.00 RA Press: 8.00 RVSP: 29.00 Great Vessels Aorta Sinus of Valsalva: 3.20 2.0-3.5 cm Ao Asc: 3.10 2.1-3.4 cm Pulmonary Valve PV Pk Haroon: 0.81 Peak PV Grad: 3.00 Updated in Other Vendor System with Status of Final Adams Alvares MD electronically signed on 10/11/2024 4:49:10 PM with status of Final
--- OUTSIDE RECORDS SUMMARY | 2024-10-11 15:57 | XMS_ITS ---
Author Organization [facility] Address [address] [place] [phone] Phone Care Team Providers Care Biosecurity Officer Name Role Phone Emily Irvin MD Primary Care Provider [phone] Active Problems Problem Noted Date Diagnosed Date Prostate cancer ([facility] V24, [facility] V28) 11/08 Current Oncology Plans GOSERELIN ( ZOLADEX ) 10.8 MG EVERY 12 WEEKS* Plan Start Date:06/16/2024 Plan Provider:Juan Bermudez MD Linked Problems Prostate cancer ([facility] V24 , [facility] V28) Treatment Medications goserelin (ZOLADEX) Past Plans No past plan information found. Radiation Treatments * No radiation treatments are documented for this patient in [facility]. Treatments may have been administered in another system.
--- OUTSIDE RECORDS SUMMARY | 2024-10-11 15:58 | XMS_ITS ---
Author Organization [facility] Address [address] [place] [address] Care Team Providers Care Strip Catcher Name Role Phone Emily Irvin MD Primary Care Provider [phone] Active Problems Problem Noted Date Diagnosed Date Prostate cancer 11/08/2017 Current Oncology Plans [facility] GOSERELIN 10.8MG (ZOLADEX)* Plan Start Date:12/16/2023 Plan Provider:Juan Bermudez MD Linked Problems Prostate cancer (HCC) Treatment Medications goserelin (ZOLADEX) Past Plans ONCOLOGY INFUSION THERAPY Plan Name Start Date Discontinue Date Treatment Medications Discontinue Reason Plan Provider [facility] GOSERELIN 10.8MG (ZOLADEX) 12/17/2022 12/16/2023 goserelin (ZOLADEX) Therapy Complete [facility] GOS[facility] 10.8MG (ZOLADEX) 01/03/2022 12/16/2022 goserelin (ZOLADEX) Therapy Complete Juan Bermudez MD Radiation Treatments * No radiation treatments are documented for this patient in [facility]. Treatments may have been administered in another system.
--- OUTSIDE RECORDS SUMMARY | 2024-10-11 15:58 | XMS_ITS | Clinical Summary ---
Author Organization [facility] Address [address] [place] [address] Phone Care Team Providers Care Lacquer Dipping Machine Operator Name Role Phone Emily Irvin MD Primary Care Provider [phone] Allergies Active Allergy Reactions Criticality Noted Date [...] darolutamide (NUBEQA) 300 mg tabletIndicatio ns:Prostate cancer (CMS/HCC V24, CMS/HCC V28) Take 2 tablets (600 mg total) by mouth 2 (two) times a day 120 tablet 11 4 Active Farxiga 5 mg tablet Take 1 tablet (5 mg total) by mouth 1 (one) time each day. 4 Active fluticasone propionate (FLONASE) 50 mcg/actuation nasal spray Administer 1 spray into each nostril if needed. 4 Active Active Problems Problem Noted Date Diagnosed Date Prostate cancer ([facility] V24, [facility] V28) 11/08 Encounters Date Type Department Care Team Description 09/16/2024 10:26 AM EDT - 09/16/2024 11:59 PM EDT Hospital Encounter [facility] [address] [place] [phone] Juan Bermudez MD Prostate cancer ([facility] V24, [facility] V28) (Primary Dx) Discharge Disposition: Home or Self Care 09/16/2024 10:00 AM EDT Office Visit [facility] [address] [place] [phone] Juan Bermudez MD Prostate cancer ([facility] V24, [facility] V28) (Primary Dx) 09/16/2024 Telephone [facility] [address] [place] [phone] Alma Delia Cano MA Abnormal ECG from Last 3 Months Surgical History Surgery Date Site/Laterality Comments APPENDECTOMY PROCEDURE:APPENDECTOMY OTHER SURGICAL HISTORY PROCEDURE:spinal repair Medical History Medical History Date Comments Prostate cancer ([facility] V24, [facility] V28) DX:Prostate cancer (HCC) Hypertension DX:Hypertension 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 Diabetes mellitus ([facility] V24, [facility] V28) DX:Diabetes mellitus (HCC) Vitamin D deficiency DX:Vitamin D [...] Description 12/16/2024 10:00 AM EDT Office Visit [facility] [address] [place] [phone] Juan Bermudez MD [address] [place] [phone] 12/16/2024 10:30 AM EDT Appointment [facility] [address] [phone] Health Maintenance Due Date Last Done Comments Zoster Vaccines (1 of 2) 06/25/2007 04/30/2007 RSV Immunization Adult Patients (1 - 1-dose 75+ series) 2010 Cholesterol [...] age to complete this topic Meningococcal B Vaccine Aged Out No l onger eligible based on patient's age to complete [...] Routine 09/13/2024 11:34 AM EDT Prostate cancer ([facility]/HCC V24, CMS/HCC V28) PROSTATE SPECIFIC ANTIGEN DIAGNOSTIC Routine 09/13/2024 11:34 AM EDT Prostate cancer (CMS/HCC V24, CMS/HCC V28) COMPREHENSIVE METABOLIC PANEL Routine 09/13/2024 11:34 AM EDT Prostate cancer (CMS/HCC V24, CMS/HCC V28) CBC AND DIFFERENTIAL Routine 09/13/2024 11:34 AM EDT Prostate cancer (CMS/HCC V24, CMS/HCC V28) from Last 3 Months Results * ECG 12 lead (09/16/2024 10:52 AM EDT) Ventricular Rate ECG 54 BPM GEMUSE Atrial Rate 54 BPM GEMUSE P-R Interval 154 ms GEMUSE QRS Duration 84 ms GEMUSE Q-T Interval 420 ms GEMUSE QTc 398 ms GEMUSE P Wave Tanner 71 degrees GEMUSE R Tanner 48 degrees GEMUSE T Tanner 35 degrees GEMUSE ECG Interpretation Sinus bradycardia with blocked PACs Septal infarct , age undetermined Abnormal ECG No previous ECGs available Confirmed by Eusebio IBARRA JOHN ([id number]) on 09/16/2024 8:21:49 PM GEMUSE 09/16/2024 10:5 2 AM EDT 09/16/2024 8:21 PM EDT Juan Bermudez MD ECG ORDERABLES Final Resul t Performing Organization Address [facility]/ZIP Co de Phone Number GEMUSE * (ABNORMAL) Prostate specific antigen diagnostic (09/13/2024 11:34 AM EDT) PSA 7.77(H) 0.00 - 4.00 ng/mL LAB CHEMISTRY METHOD 09/13/2024 4:02 PM EDT [facility] Blood Venous blood specimen / Unknown Venipuncture / Unknown 09/13/2024 11:34 AM EDT 09/13/2024 1:36 PM EDT Narrative [facility] - 09/13/2024 4:02 PM EDT The Siemens Advia Centaur Chemiluminescent Immunoassay is used. Results obtained with different assay methods or kits cannot be used interchangeably. Results cannot be interpreted as absolute evidence of the presence or absence of malignant disease. Juan Bermudez MD LAB BLOOD ORDERABLES Final Result Performing Organization Address City/[facility]/ZIP Co de Phone Number [facility] [address] [place] [address], [place] [phone] * (ABNORMAL) CBC auto differential (09/13/2024 11:34 AM EDT) [facility] WBC 6.2 4.8 - 10.8 K/mcL LAB HEMETOLOGY METHOD 09/13/2024 1:50 PM EDT [facility] RBC 4.40(L) 4.50 - 5.50 M/mcL LAB HEMETOLOGY METHOD 09/13/2024 1:50 PM EDT [facility] Hemoglobin 12.7(L) 13.5 - 17.5 g/dL LAB HEMETOLOGY METHOD 09/13/2024 1:50 PM EDT [facility] Hematocrit 39.5(L) 42.0 - 54.0 % LAB HEMETOLOGY METHOD 09/13/2024 1:50 PM EDT [facility] MCV 90.8 79.0 - 98.0 FL LAB HEMETOLOGY METHOD 09/13/2024 1:50 PM EDT [facility] MCH 29.2 27.0 - 32.0 pcg LAB HEMETOLOGY METHOD 09/13/2024 1:50 PM EDT [facility] MCHC 32.2 32.0 - 37.0 g/dL LAB [facility]OLOGY [facility] RDW 15.9(H) 11.0 - 15.0 % LAB HEMETOLOGY METHOD 09/13/2024 1:50 PM EDT [facility] Platelets 262 130 - 400 K/mcL LAB HEMETOLOGY METHOD 09/13/2024 1:50 PM EDT [facility] MPV 10.3 7.0 - 11.0 FL LAB HEMETOLOGY METHOD 09/13/2024 1:50 PM EDT [facility] NRBC 0.0 <1.0 % LAB HEMETOLOGY METHOD 09/13/2024 1:50 PM EDT [facility] NRBC Absolute 0.00 <0.10 K/mcL LAB HEMETOLOGY METHOD 09/13/2024 1:50 PM EDT [facility] Neutrophils Relative 62.4 % LAB HEMETOLOGY METHOD 09/13/2024 1:50 PM EDT [facility] Lymphocytes Relative 23.6 % LAB HEMETOLOGY METHOD 09/13/2024 1:50 PM EDT [facility] Monocytes Relative 10.3 % LAB HEMETOLOGY METHOD 09/13/2024 1:50 PM EDT [facility] Eosinophils Relative 2.9 % LAB HEMETOLOGY METHOD 09/13/2024 1:50 PM EDT [facility] Basophils Relative 0.5 % LAB HEMETOLOGY METHOD 09/13/2024 1:50 PM EDT [facility] Immature Granulocytes Relative 0.3 % LAB HEMETOLOGY METHOD 09/13/2024 1:50 PM EDT [facility] Neutrophils Absolute 3.90 1.50 - 7.00 K/mcL LAB HEMETOLOGY METHOD 09/13/2024 1:50 PM EDT [facility] Lymphocytes Absolute 1.47 1.00 - 5.00 K/mcL LAB HEMETOLOGY METHOD 09/13/2024 1:50 PM EDT [facility] Monocytes Absolute 0.64 0.20 - 1.00 K/mcL LAB HEMETOLOGY METHOD 09/13/2024 1:50 PM EDT [facility] Eosinophils Absolute 0.18 0.00 - 0.50 K/mcL LAB HEMETOLOGY METHOD 09/13/2024 1:50 PM EDT [facility] Basophils Absolute 0.03 0.00 - 0.20 K/mcL LAB HEMETOLOGY METHOD 09/13/2024 1:50 PM EDT [facility] Immature Granulocytes Absolute 0.02 0.00 - 0.03 K/mcL LAB HEMETOLOGY METHOD 09/13/2024 1:50 PM EDT [facility] Blood Venous blood specimen / Unknown Venipuncture / Unknown 09/13/2024 11:34 AM EDT 09/13/2024 1:36 PM EDT us Juan Bermudez MD LAB BLOOD ORDERABLES Final Result [facility] [address] [place] [address], * (ABNORMAL) Comprehensive metabolic panel (09/13/2024 11:34 AM EDT) Sodium 134 133 - 145 mmol/L LAB CHEMISTRY METHOD 09/13/2024 4:[address] [facility] Potassium 4.3 3.5 - 5.5 mmol/L LAB CHEMISTRY METHOD 09/13/2024 4:[address] [facility] Chloride 98 96 - 110 mmol/L LAB CHEMISTRY METHOD 09/13/2024 4:[address] [facility] CO2 30 21 - 32 mmol/L LAB CHEMISTRY METHOD 09/13/2024 4:[address] [facility] Anion Gap 6 3 - 11 LAB CHEMISTRY METHOD 09/13/2024 4:[address] [facility] Glucose 142(H) 70 - 100 mg/dL LAB CHEMISTRY METHOD 09/13/2024 4:[address] [facility] BUN 18 5 - 25 mg/dL LAB CHEMISTRY METHOD 09/13/2024 4:[address] [facility] Creatinine 0.78 0.70 - 1.30 mg/dL LAB CHEMISTRY METHOD 09/13/2024 4:[address] [facility] eGFR 85 >=60 mL/min/1. 73m2 LAB CHEMISTRY METHOD 09/13/2024 4:[address] [facility] Comment:Calculation based on the??Chronic Kidney Disease Epidemiology Collaboration (CKD-EPI) equation refit??without adjustment for race. BUN/Creatinine Ratio 23.1 LAB CHEMISTRY METHOD 09/13/2024 4:21 PM T [facility] Calcium 9.7 8.5 - 10.5 mg/dL LAB CHEMISTRY METHOD 09/13/2024 4:[address] [facility] AST (SGOT) 9(L) 10 - 42 unit/L LAB CHEMISTRY METHOD 09/13/2024 4:[address] [facility] ALT (SGPT) 15 10 - 60 unit/L LAB CHEMISTRY METHOD 09/13/2024 4:[address] [facility] Alkaline Phosphatase 59 42 - 121 unit/L LAB CHEMISTRY METHOD 09/13/2024 4:[address] [facility] Total Protein 6.8 6.0 - 8.0 g/dL [facility] Albumin 3.7 3.2 - 5.0 g/dL LAB CHEMISTRY METHOD 09/13/2024 4:[address] [facility] Total Bilirubin 0.6 0.0 - 1.4 mg/dL LAB CHEMISTRY METHOD 09/13/2024 4:[address] [facility] Blood Venous blood specimen / Unknown Venipuncture / Unknown 09/13/2024 11:34 AM EDT 09/13/2024 1:36 PM EDT us Juan Bermudez MD LAB BLOOD ORDERABLES Final Result [facility] [address] [place] [address], from Last 3 Months Insurance [employer] Care Teams Lacquer Dipping Machine Operator Relationship Specialty Start Date End Date Emily Irvin MD [address] [place] [phone] PCP - General Lead Systems Architect 08/24/19
--- OUTSIDE RECORDS SUMMARY | 2024-10-11 15:58 | XMS_ITS | Clinical Summary ---
Author Organization [facility] Address [address] [place] [address] Care Team Providers Care Supervisor Erection Shop Name Role Phone Emily Irvin MD Primary Care Provider [phone] Allergies No known active allergies Medications Medication Sig Dispensed Refills Start Date End Date Status finasteride (PROSCAR) 5 MG tablet Take 1 tablet (5 mg total) by mouth daily. 0 Active tamsulosin (FLOMAX) 0.4 MG CAPS Take 1 capsule (0.4 mg total) by mouth daily. 0 Active aspirin EC 81 MG tablet Take 1 tablet (81 mg total) by mouth daily. 0 Active Lvttztw-Vobnpjmtl-Mu tamin D (CALCIUM 500 PO) Take by [...] age to complete this topic Care Teams Supervisor Erection Shop Relationship Specialty Start Date End Date Emily Irvin MD [address] [place] [phone] PCP - General Supervisor Dry Cell Assembly 08/24/19
== END ==
LOC: HO.CARD 13:46
PROVIDERS: Visit Provider Internal Medicine
DX: I49.8 Other specified cardiac arrhythmias (principal)
CPT/HCPCS: 93225; 93306

== ENCOUNTER → 2024-10-11 14:04 | Outpatient (BNV) | payer MEDICARE, SELFPAY | PROVIDERS: Visit Provider Internal Medicine Cardiovascular Disease | DX: Q21.19 Other specified atrial septal defect (principal); I51.89 Other ill-defined heart diseases; R94.31 Abnormal electrocardiogram [ECG] [EKG] | CPT/HCPCS: 93303; 93320; 93325 ==

== ENCOUNTER 2024-11-18 11:23 | Outpatient (AMB) | payer MEDICARE, SELFPAY ==
[2024-11-18 11:26] VITALS: BP 120/64; PULSE 50; RESP 16; TEMP 36.4; O2SAT 99; BMI 18.9
--- NOTE | 2024-11-18 11:26 | A.OFFPC_ITS ---
Vital Signs 11/18/24 11:26 Height 5 ft 8 in Weight 124 lb BMI 18.9 BP 120/64 Blood Pressure Location Lt brachial Position Sitting Respiration 16 Pulse 50 Pulse Source Pulse Oximeter Temp 97.5 F Temp Source Oral Pulse Oximetry (%) 99 Oxygen Delivery Method Room Air Intake Visit Reasons: Annual physical - see comments r/s from 11/08 Intake Note: Pt is here today for PE.Pt needs a refill on Metformin. Allergies No Known Allergies [No Known Allergies*] Allergy (Verified 11/18/24 11:28) Medication List - Last Reconciled 11/18/24 by Emily Irvin MD ascorbate calcium (vitamin C) 500 mg PO DAILY blood sugar diagnostic (FreeStyle Lite Strips) test twice a day cholecalciferol (vitamin D3) 50 mcg PO DAILY cyanocobalamin (vitamin B-12) 5,000 mcg PO DAILY dapagliflozin propanediol (Farxiga) 10 mg PO DAILY darolutamide (Nubeqa) 600 mg PO BID ferrous sulfate (Feosol) 325 mg PO DAILY goserelin (Zoladex) 3.6 mg subcut Q28D loratadine 10 mg PO DAILY metformin 1,000 mg (2 x 500 mg) PO BID oxybutynin chloride ER 5 mg PO DAILY tamsulosin 0.4 mg PO DAILY walker As directed Tobacco use date assessed: 11/18/24 Dental Screening Dental Screen Date: 07/27/24 [facility] Annual physical - see comments r/s from 11/08 HPI Details Pt presents for PE. Pt has been getting treatment for metastatic prostate ca and PSA level has been raising up to 20. . DM 2 is stable on meds. Patient had normal Holter and echocardiogram for episode of asymptomatic sinus bradycardia during chemo infusion. [facility] Medical History DM type 2 (diabetes mellitus, type 2) Annual physical exam Prostate CA Paget's disease Family History Father No problems noted. Mother No problems noted. Social History Housing: House Alcohol intake: current Alcohol intake frequency: holidays/special occasions only Patient Tobacco Use Status: Never used Tobacco e-Cigarette/Vaping Use: Never Used Second Hand Smoke Exposure: No service: Yes Current occupational status: retired Current occupational exposures/hazards: No Cognitive needs: No Hearing needs: No Vision needs: Yes Questionnaire Thrive Questionnaire Date Thrive assessed: 07/27/24 I am a: Patient What is your living situation today?: I have a steady place to live Within the past 12 months, did the food you bought not last and you didn't have the money to get more?: Never true Within the past 12 months, did you worry whether your food would run out before you got money to buy more?: I choose not to answer this question Do you have trouble paying for medicines?: No Do you have trouble getting transportation to medical appointments?: No Do you have trouble paying your heating and electricity bill?: No Do you have trouble taking care of your child, family member or friend?: No Do you have trouble with day-to-day activities such as bathing, preparing meals, shopping, managing finances, etc.?: No Are you currently unemployed and looking for a job?: No Are you interested in more education?: No Please select the resources that you would like help with: None Currently or been in a relationship where the following occur: No concerns reported THRIVE Score: 0 AMAURY-7 AMB Questionnaire AMAURY-7 Date AMAURY - 7 assessed: 09/21/24 Source: Developed by Drs. David Ram, Niru Krueger, Gurwinder Fernandes and colleagues, with an educational lacy from [employer]. Review of Systems Const All systems reviewed & are unremarkable except as noted in HPI and below Eyes Reports no additional complaints ENT Reports no additional complaints Card Reports no additional complaints Resp Reports no additional complaints GI Reports no additional complaints Reports no additional complaints Physical exam (Primary Care) Vital Signs: Last Vital Signs Temp 97.5 F 11/18/24 11:26 Pulse 50 11/18/24 11:26 Resp 16 11/18/24 11:26 BP 120/64 11/18/24 11:26 Pulse Ox 99 11/18/24 11:26 Oxygen Delivery Method Room Air 11/18/24 11:26 BMI result Body Mass Index 18.9 Tobacco/Smoking Status: Tobacco use Status Tobacco use date assessed 11/18/24 11/18/24 11:32 Patient Tobacco Use Status Never used Tobacco 11/18/24 11:32 e-Cigarette/Vaping Use Never Used 11/18/24 11:32 Thrive Assessment: Date of Thrive Assessment Date Thrive assessed 07/27/24 11/18/24 11:32 Currently or been in a relationship where the following occur: No concerns reported Const General: no acute distress HENMT Head: Yes normal to inspection Ears: TM's normal bilaterally Throat: Yes posterior oropharynx normal Neck Neck: Yes no lymphadenopathy and Yes supple Resp Effort & Inspection: normal respiratory effort Auscultation: clear to auscultation bilaterally Cardio Rhythm: regular rhythm Heart sounds: S1 normal heart sound present and S2 normal heart sound present GI Inspection: Yes normal to inspection Palpation (GI): Soft to palpation Percussion: Yes normal to percussion Auscultation: normal bowel sounds Results AMB Hemoglobin A1c AMB Hemoglobin A1c 6.7 % Last Edit by LAKSHMI Younger on 11/18/24 12:0 8 Coding Level of Care Code Est Pt Prev Care >65y(51463) Diagnoses Paget's disease Prostate CA C61 Annual physical exam Z00.00 Vitamin D deficiency E55.9 Diabetes mellitus E11.9 Assessment & Plan Assessment & Plan (1) 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 Aidan Méndez, started RTx 2019 Code(s): C61 - Malignant neoplasm of prostate Category: Medical Plan: Follow-up with urology (3) Annual physical exam: Code(s): Z00.00 - Encounter for general adult medical examination without abnormal findings Category: Medical Plan: Well-balanced diet regular physical activity discussed with the patient. (4) Vitamin D deficiency: Code(s): E55.9 - Vitamin D deficiency, unspecified Category: Medical Plan: Continue vitamin-D (5) Diabetes mellitus: Code(s): E11.9 - Type 2 diabetes mellitus without complications Category: Medical Plan: A1c is 6.7 today. ADA diet regular physical activity discussed. Patient will return in 6 months with a fasting labs before Orders: Orders Comprehensive Hemet. Panel Fast 6 Months C61 - Malignant neoplasm of prostate, E11.9 - Type 2 diabetes mellitus without complications, E55.9 - Vitamin D deficiency, unspecified, Z00.00 - Encounter for general adult medical examination without abnormal findings Lipid Panel 6 Months C61 - Malignant neoplasm of prostate, E11.9 - Type 2 diabetes mellitus without complications, E55.9 - Vitamin D deficiency, unspeci fied, Z00.00 - Encounter for general adult medical examination without abnormal findings TSH reflex Free T4 6 Months C61 - Malignant neoplasm of prostate, E11.9 - Type 2 diabetes mellitus without complications, E55.9 - Vitamin D deficiency, unspecified, Z00.00 - Encounter for general adult medical examination without abnormal findings Complete Blood Count Auto Diff 6 Months C61 - Malignant neoplasm of prostate, E11.9 - Type 2 diabetes mellitus without complications, E55.9 - Vitamin D deficiency, unspecified, Z00.00 - Encounter for general adult medical examination without abnormal findings Hemoglobin A1c 6 Months C61 - Malignant neoplasm of prostate, E11.9 - Type 2 diabetes mellitus without complications, E55.9 - Vitamin D deficiency, unspecified, Z00.00 - Encounter for general adult medical examination without abnormal findings Vitamin D 25-OH Total 6 Months E55.9 - Vitamin D deficiency, unspecified, I49.8 - Other specified cardiac arrhythmias Medications: Refilled metformin 500 mg tab 4 tablets a day 1,000 mg (2 x 500 mg) PO BID 360 tabs 3RF
--- OUTSIDE RECORDS SUMMARY | 2024-11-18 12:02 | XMS_ITS | Clinical Summary ---
Author Organization [facility] Address [address] [place] [address] Care Team Providers Care Bar Catcher Name Role Phone Emily Irvin MD Primary Care Provider [phone] Allergies No known active allergies Medications Medication Sig Dispensed Refills Start Date End Date Status finasteride (PROSCAR) 5 MG tablet Take 1 tablet (5 mg total) by mouth daily. 0 Active tamsulosin (FLOMAX) 0.4 MG CAPS Take 1 capsule (0.4 mg total) by mouth daily. 0 Active aspirin EC 81 MG tablet Take 1 tablet (81 mg total) by mouth daily. 0 Active Fgpuvfn-Vmjxhigwz-Xa tamin D (CALCIUM 500 PO) Take by [...] age to complete this topic Care Teams Bar Catcher Relationship Specialty Start Date End Date Emily Irvin MD [address] [place] [phone] PCP - General Thermal Engineer 08/24/19
--- OUTSIDE RECORDS SUMMARY | 2024-11-18 12:02 | XMS_ITS ---
Author Organization [facility] Address [address] [place] [address] Care Team Providers Care Sales Order Clerk Name Role Phone Emily Irvin MD Primary Care Provider [phone] Active Problems Problem Noted Date Diagnosed Date Prostate cancer 11/08/2017 Current Oncology Plans [facility] GOSERELIN 10.8MG (ZOLADEX)* Plan Start Date:12/16/2023 Plan Provider:Juan Bermudez MD Linked Problems Prostate cancer (HCC) Treatment Medications goserelin (ZOLADEX) Past Plans ONCOLOGY INFUSION THERAPY Plan Name Start Date Discontinue Date Treatment Medications Discontinue Reason Plan Provider [facility] GOSERELIN 10.8MG (ZOLADEX) 12/17/2022 12/16/2023 goserelin (ZOLADEX) Therapy Complete [facility]ude[facility] (ZOLADEX) 01/03/2022 12/16/2022 goserelin (ZOLADEX) Therapy Complete Juan Bermudez MD Radiation Treatments * No radiation treatments are documented for this patient in [facility]. Treatments may have been administered in another system.
--- OUTSIDE RECORDS SUMMARY | 2024-11-18 12:02 | XMS_ITS | Clinical Summary ---
Author Organization [facility] Address [address] [place] [address] Phone Care Team Providers Care Regional Education Coordinator Name Role Phone Emily Irvin MD Primary Care Provider [phone] Allergies Active Allergy Reactions Criticality Noted Date [...] Problem Noted Date Diagnosed Date Prostate cancer ([facility], [facility]) 11/08 Encounters Date Type Department Care Team Description 09/16/2024 10:26 AM EDT - 09/16/2024 11:59 PM EDT Hospital Encounter [facility] [address] [place] [phone] Juan Bermudez MD Prostate cancer ([facility], [facility]) (Primary Dx) Discharge Disposition: Home or Self Care 09/16/2024 10:00 AM EDT Office Visit [facility] Hematology Oncology [address] [place] [phone] Juan Bermudez MD Prostate cancer ([facility], [facility]) (Primary Dx) 09/16/2024 Telephone [facility] Hematology Oncology [address] [place] [phone] Alma Delia Cano MA Abnormal ECG from Last 3 Months Surgical History Surgery Date Site/Laterality Comments APPENDECTOMY PROCEDURE:APPENDECTOMY OTHER SURGICAL HISTORY PROCEDURE:spinal repair Medical History Medical History Date Comments Prostate cancer ([facility], [facility]) DX:Prostate cancer (HCC) Hypertension DX:Hypertension 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 Diabetes mellitus ([facility], [facility]) DX:Diabetes mellitus (HCC) Vitamin D deficiency [...] Description 12/16/2024 10:00 AM EDT Office Visit [facility] Hematology Oncology [address] [place] [phone] Juan Bermudez MD [address] [place] [phone] 12/16/2024 10:30 AM EDT Appointment [facility] [address] [phone] Health Maintenance Due Date Last Done Comments [...] Routine 09/13/2024 11:34 AM EDT Prostate cancer ([facility]/HCC V24, [facility]/HCC V28) PROSTATE SPECIFIC ANTIGEN DIAGNOSTIC [...] GEMUSE QTc 398 ms GEMUSE P Wave Stickney 71 degrees GEMUSE R Stickney 48 degrees GEMUSE T Stickney 35 degrees GEMUSE ECG Interpretation Sinus bradycardia with blocked PACs Septal infarct , age undetermined Abnormal ECG No previous ECGs available Confirmed by Eusebio IBARRA JOHN ([id number]) on 09/16/2024 8:21:49 PM GEMUSE 09/16/2024 10:5 2 AM EDT 09/16/2024 8:21 PM EDT Juan Bermudez MD ECG ORDERABLES Final Resul t Performing Organization Address [facility]/ZIP Co de Phone Number GEMUSE * (ABNORMAL) Prostate specific antigen diagnostic (09/13/2024 11:34 AM EDT) PSA 7.77(H) 0.00 - 4.00 ng/mL LAB CHEMISTRY METHOD 09/13/2024 4:02 PM EDT [facility] Blood Venous blood specimen / Unknown Venipuncture / Unknown 09/13/2024 11:34 AM EDT 09/13/2024 1:36 PM EDT Narrative [facility] - 09/13/2024 4:02 PM EDT The Siemens Advia Centaur Chemiluminescent Immunoassay is used. Results obtained with different assay methods or kits cannot be used interchangeably. Results cannot be interpreted as absolute evidence of the presence or absence of malignant disease. Juan Bermudez MD LAB BLOOD ORDERABLES Final Result Performing Organization Address City/[facility]/ZIP Co de Phone Number [facility] [address] [place] [address], [place] [phone] * (ABNORMAL) CBC auto differential (09/13/2024 11:34 AM EDT) [facility] WBC 6.2 4.8 - 10.8 K/mcL LAB HEMETOLOGY METHOD 09/13/2024 1:50 PM EDT [facility] RBC 4.40(L) 4.50 - 5.50 M/mcL LAB HEMETOLOGY METHOD 09/13/2024 1:50 PM EDT [facility] Hemoglobin 12.7(L) 13.5 - 17.5 g/dL LAB HEMETOLOGY METHOD 09/13/2024 1:50 PM EDT [facility] Hematocrit 39.5(L) 42.0 - 54.0 % LAB HEMETOLOGY METHOD 09/13/2024 1:50 PM EDT [facility] MCV 90.8 79.0 - 98.0 FL LAB HEMETOLOGY METHOD 09/13/2024 1:50 PM EDT [facility] MCH 29.2 27.0 - 32.0 pcg LAB HEMETOLOGY METHOD 09/13/2024 1:50 PM EDT [facility] MCHC 32.2 32.0 - 37.0 g/dL LAB HEMETOLOGY [facility] RDW 15.9(H) 11.0 - 15.0 % LAB HEMETOLOGY METHOD 09/13/2024 1:50 PM EDT [facility] Platelets 262 130 - 400 K/mcL LAB HEMETOLOGY METHOD 09/13/2024 1:50 PM EDT [facility] MPV 10.3 7.0 - 11.0 FL LAB HEMETOLOGY METHOD 09/13/2024 1:50 PM EDT [facility] NRBC 0.0 <1.0 % LAB HEMETOLOGY METHOD 09/13/2024 1:50 PM EDT [facility] NRBC Absolute 0.00 <0.10 K/mcL LAB HEMETOLOGY METHOD 09/13/2024 1:50 PM EDT [facility] Neutrophils Relative 62.4 % LAB HEMETOLOGY METHOD 09/13/2024 1:50 PM EDT [facility] Lymphocytes Relative 23.6 % LAB HEMETOLOGY METHOD 09/13/2024 1:50 PM EDT [facility] Monocytes Relative 10.3 % LAB HEMETOLOGY METHOD 09/13/2024 1:50 PM EDT [facility] Eosinophils Relative 2.9 % LAB HEMETOLOGY METHOD 09/13/2024 1:50 PM EDT [facility] Basophils Relative 0.5 % LAB HEMETOLOGY METHOD 09/13/2024 1:50 PM EDT [facility] Immature Granulocytes Relative 0.3 % LAB HEMETOLOGY METHOD 09/13/2024 1:50 PM EDT [facility] Neutrophils Absolute 3.90 1.50 - 7.00 K/mcL LAB HEMETOLOGY METHOD 09/13/2024 1:50 PM EDT [facility] Lymphocytes Absolute 1.47 1.00 - 5.00 K/mcL LAB HEMETOLOGY METHOD 09/13/2024 1:50 PM EDT [facility] Monocytes Absolute 0.64 0.20 - 1.00 K/mcL LAB HEMETOLOGY METHOD 09/13/2024 1:50 PM EDT [facility] Eosinophils Absolute 0.18 0.00 - 0.50 K/mcL LAB HEMETOLOGY METHOD 09/13/2024 1:50 PM EDT [facility] Basophils Absolute 0.03 0.00 - 0.20 K/mcL LAB HEMETOLOGY METHOD 09/13/2024 1:50 PM EDT [facility] Immature Granulocytes Absolute 0.02 0.00 - 0.03 K/mcL LAB HEMETOLOGY METHOD 09/13/2024 1:50 PM EDT [facility] Blood Venous blood specimen / Unknown Venipuncture / Unknown 09/13/2024 11:34 AM EDT 09/13/2024 1:36 PM EDT us Juan Bermudez MD LAB BLOOD ORDERABLES Final Result [facility] [address] [place] [address], * (ABNORMAL) Comprehensive metabolic panel (09/13/2024 11:34 AM EDT) Sodium 134 133 - 145 mmol/L LAB CHEMISTRY METHOD 09/13/2024 4:21 PM [facility] Potassium 4.3 3.5 - 5.5 mmol/L LAB CHEMISTRY METHOD 09/13/2024 4:21 PM [facility] Chloride 98 96 - 110 mmol/L LAB CHEMISTRY METHOD 09/13/2024 4:21 PM [facility] CO2 30 21 - 32 mmol/L LAB CHEMISTRY METHOD 09/13/2024 4:21 PM [facility] Anion Gap 6 3 - 11 LAB CHEMISTRY METHOD 09/13/2024 4:21 PM [facility] Glucose 142(H) 70 - 100 mg/dL LAB CHEMISTRY METHOD 09/13/2024 4:21 PM [facility] BUN 18 5 - 25 mg/dL LAB CHEMISTRY METHOD 09/13/2024 4:21 PM [facility] Creatinine 0.78 0.70 - 1.30 mg/dL LAB CHEMISTRY METHOD 09/13/2024 4:21 PM [facility] eGFR 85 >=60 mL/min/1. 73m2 LAB CHEMISTRY METHOD 09/13/2024 4:21 PM [facility] Comment:Calculation based on the??Chronic Kidney Disease Epidemiology Collaboration (CKD-EPI) equation refit??without adjustment for race. BUN/Creatinine Ratio 23.1 LAB CHEMISTRY METHOD 09/13/2024 4:21 PM T [facility] Calcium 9.7 8.5 - 10.5 mg/dL LAB CHEMISTRY METHOD 09/13/2024 4:21 PM [facility] AST (SGOT) 9(L) 10 - 42 unit/L LAB CHEMISTRY METHOD 09/13/2024 4:21 PM [facility] ALT (SGPT) 15 10 - 60 unit/L LAB CHEMISTRY METHOD 09/13/2024 4:21 PM [facility] Alkaline Phosphatase 59 42 - 121 unit/L LAB CHEMISTRY METHOD 09/13/2024 4:21 PM [facility] Total Protein 6.8 6.0 - 8.0 g/dL [facility] Albumin 3.7 3.2 - 5.0 g/dL LAB CHEMISTRY METHOD 09/13/2024 4:21 PM [facility] Total Bilirubin 0.6 0.0 - 1.4 mg/dL LAB CHEMISTRY METHOD 09/13/2024 4:21 PM [facility] Blood Venous blood specimen / Unknown Venipuncture / Unknown 09/13/2024 11:34 AM EDT 09/13/2024 1:36 PM EDT us Juan Bermudez MD LAB BLOOD ORDERABLES Final Result [facility] [address] [place] [address], from Last 3 Months Insurance [employer] Care Teams Regional Education Coordinator Relationship Specialty Start Date End Date Emily Irvin MD [address] [place] [phone] PCP - General Carbon Brusher Assembler 08/24/19
--- OUTSIDE RECORDS SUMMARY | 2024-11-18 12:02 | XMS_ITS ---
Author Organization [facility] Address [address] [place] [phone] Phone Care Team Providers Care Bus Attendant Name Role Phone Emily Irvin MD Primary Care Provider [phone] Active Problems Problem Noted Date Diagnosed Date Prostate cancer ([facility], [facility] V28) 11/08 Current Oncology Plans GOSERELIN ( ZOLADEX ) 10.8 MG EVERY 12 WEEKS* Plan Start Date:06/16/2024 Plan Provider:Juan Bermudez MD Linked Problems Prostate cancer ([facility] V24 , [facility] V28) Treatment Medications goserelin (ZOLADEX) Past Plans No past plan information found. Radiation Treatments * No radiation treatments are documented for this patient in [facility]. Treatments may have been administered in another system.
== END 2024-11-18 12:11 | disposition home or self-care (01) ==
LOC: HO.HMCC 11:24
PROVIDERS: PCP Internal Medicine; Visit Provider Internal Medicine
DX: C61 Malignant neoplasm of prostate (principal); Z00.00 Encounter for general adult medical examination without abnormal findings; E55.9 Vitamin D deficiency, unspecified; E11.9 Type 2 diabetes mellitus without complications; Z13.9 Encounter for screening, unspecified

== ENCOUNTER → 2024-11-18 11:23 | Outpatient (BNVA) | payer MEDICARE, SELFPAY | PROVIDERS: PCP Internal Medicine; Visit Provider Internal Medicine | DX: Z00.00 Encounter for general adult medical examination without abnormal findings (principal); C61 Malignant neoplasm of prostate; E55.9 Vitamin D deficiency, unspecified; E11.9 Type 2 diabetes mellitus without complications; Z87.39 Personal history of other diseases of the musculoskeletal system and connective tissue | CPT/HCPCS: 83036; 99397 ==

== ENCOUNTER 2025-01-05 11:23 | Outpatient (AMB) | payer MEDICARE, SELFPAY ==
[2025-01-05 11:26] VITALS: BP 132/64; PULSE 73; TEMP 36.8; O2SAT 98; BMI 18.8
--- NOTE | 2025-01-05 11:26 | MHC.OFFWIV ---
Intake Vital Signs 01/05/25 11:26 Height 5 ft 8 in Weight 123 lb 8 oz BMI 18.8 BP 132/64 Blood Pressure Location Lt brachial Position Sitting Pulse 73 Pulse Source Pulse Oximeter Temp 98.3 F Temp Source Oral Pulse Oximetry (%) 98 Oxygen Delivery Method Room Air Intake Visit Reasons: EP Skin tear on LT arm Intake Note: Patient present with skin tear left arm times 10 days. Not painful, swollen or red Patient Tobacco Use Status: Never used Tobacco Allergies No Known Allergies (No Known Allergies*) Allergy (Verified 11/18/24 11:28) HPI HPI Comments History of Present Illness Details History - The patient is an 89-year-old male presenting with a skin tear of the left forearm. - The skin tear occurred approximately 10 days ago due to a loss of balance, resulting in a significant tear on the arm. - Initial bleeding was noted but has since ceased, with slow healing observed. - The patient reports a small amount of white discharge but no fever or tenderness. - The patient initially used hydrogen peroxide but has not applied any other treatments regularly. - The patient's has been providing wound care, ensuring it remains covered with gauze. - Balance issues are noted, contributing to the initial injury. Physical Exam General: Cooperative, healthy appearing, comfortable, no acute distress and well developed Orientation: Patient oriented x3 Limitations: No limitations Head: Normal to inspection Ears: Hearing grossly normal bilaterally Nose: Normal External nose present Face and sinus: Normal facial exam Mouth: normal, moist oral mucosa Eyes: Appearance normal, both eyes and all related structures Neck: Normal visual inspection and Yes full ROM Respiratory: Normal respiratory effort and able to speak in complete sentences. Skin: 2cm oblong skin tear on left forearm, no warmth or discharge noted. Neuro: Patient oriented x3, gait normal Extremities: moving all extremities normally [facility] Medical History DM type 2 (diabetes mellitus, type 2) Annual physical exam Prostate CA Paget's disease Family History Father No problems noted. Mother No problems noted. Social History Housing: House Alcohol intake: current Alcohol intake frequency: holidays/special occasions only Patient Tobacco Use Status: Never used Tobacco e-Cigarette/Vaping Use: Never Used Second Hand Smoke Exposure: No service: Yes Current occupational status: retired Current occupational exposures/hazards: No Cognitive needs: No Hearing needs: No Vision needs: Yes Review of Systems Const All systems reviewed & are unremarkable except as noted in HPI and below Physical Exam Vital Signs: Last Vital Signs Temp 98.3 F 01/05/25 11:26 Pulse 73 01/05/25 11:26 BP 132/64 01/05/25 11:26 Pulse Ox 98 01/05/25 11:26 Oxygen Delivery Method Room Air 01/05/25 11:26 BMI result Body Mass Index 18.8 Assessment & Plan Assessment & Plan (1) Skin tear of forearm without complication: Code(s): S51.819A - Laceration without foreign body of unspecified forearm, initial encounter Qualifiers: Encounter type: initial encounter Laterality: left Qualified Code(s): S51.812A - Laceration without foreign body of left forearm, initial encounter Plan: Patient was informed and verbally consented to the use of an ambient scribe for clinic note documentation during this visit 1. Skin Tear - The wound is healing slowly but shows no signs of infection. - Bacitracin ointment was recommended to prevent infection and promote healing. - The patient was advised to apply the ointment daily and keep the wound covered with gauze. - Aquaphor was suggested for use once the wound is more healed. (2) Imbalance: Code(s): R26.89 - Other abnormalities of gait and mobility Plan: 2. Balance Issues - The patient was advised to move slowly and with purpose to prevent further falls. - Follow up with PCP if interested in physical therapy or occupational therapy for management of these conditions. Coding Level of Care Code Est Pt Level 3 (01026) Diagnoses Skin tear of left forearm without complication, initial encounter S51.812A Encounter type: initial encounter Laterality: left Imbalance R26.89
--- OUTSIDE RECORDS SUMMARY | 2025-01-05 12:34 | XMS_ITS ---
Author Organization [facility] Address [address] [place] [address] Care Team Providers Care Tool Setter Name Role Phone Emily Irvin MD Primary Care Provider [phone] Active Problems Problem Noted Date Diagnosed Date Prostate cancer 11/08/2017 Current Oncology Plans [facility] GOSERELIN 10.8MG (ZOLADEX)* Plan Start Date:12/16/2023 Plan Provider:Juan Bermudez MD Linked Problems Prostate cancer (HCC) Treatment Medications goserelin (ZOLADEX) Past Plans ONCOLOGY INFUSION THERAPY Plan Name Start Date Discontinue Date Treatment Medications Discontinue Reason Plan Provider [facility] GOSERELIN 10.8MG (ZOLADEX) 12/17/2022 12/16/2023 goserelin (ZOLADEX) Therapy Complete Juan [facility]ermudez MD [facility] GOSERELIN 10.8MG (ZOLADEX) 01/03/2022 12/16/2022 goserelin (ZOLADEX) Therapy Complete Juan Bermudez MD Radiation Treatments * No radiation treatments are documented for this patient in [facility]. Treatments may have been administered in another system.
--- OUTSIDE RECORDS SUMMARY | 2025-01-05 12:34 | XMS_ITS ---
Author Organization [facility] Address [address] [place] [address] Phone Care Team Providers Care Director Of Professional Services Name Role Phone Emily Irvin MD Primary Care Provider [phone] Active Problems Problem Noted Date Diagnosed Date Prostate cancer ([facility] V24, [facility] V28) 11/08 Current Oncology Plans GOSERELIN ( ZOLADEX ) 10.8 MG EVERY 12 WEEKS* Plan Start Date:12/16/2024 Plan Provider:Juan Bermudez MD Linked Problems Prostate cancer ([facility] V24 , [facility] V28) Treatment Medications goserelin (ZOLADEX) Past Plans Additional Therapy Plan Plan Name Start Date Discontinue Date Treatment Medications Discontinue Reason Plan Provider GOSERELIN ( ZOLADEX ) 10.8 MG EVERY 12 WEEKS 06/16/2024 12/15/2024 goserelin (ZOLADEX) - Therapy Complete Juan Bermudez MD Radiation Treatments * No radiation treatments are documented for this patient in [facility]. Treatments may have been administered in another system.
== END 2025-01-05 12:27 | disposition home or self-care (01) ==
PROVIDERS: PCP Internal Medicine; Visit Provider Physician Assistant
DX: S51.812A Laceration without foreign body of left forearm, initial encounter (principal); R26.89 Other abnormalities of gait and mobility

== ENCOUNTER → 2025-01-05 11:23 | Outpatient (BNVA) | payer MEDICARE, SELFPAY | PROVIDERS: PCP Internal Medicine; Visit Provider Physician Assistant | DX: S51.812A Laceration without foreign body of left forearm, initial encounter (principal) | CPT/HCPCS: 99212 ==